=== PATIENT | male | born 1945 | race Caucasian/White ===

== ENCOUNTER 2017-06-23 10:12 | Inpatient (IN) | payer MEDICARE ==
[2017-06-23] MEDS ORDERED: ASPIRIN 325 MG TAB ONE (10:31)
[2017-06-23] MEDS ORDERED: SODIUM CHLORIDE 0.9% 1,000 ML IV ONE (10:50)
[2017-06-23 11:11] LABS: Basophils % (A) 0 %; Eosinophils # (A) 0.1 k/uL (0-0.7); Eosinophils % (A) 1 %; HCT 42.5 % (39.0-53.0); HGB 14.3 gm/dL (13.0-17.5); Lymphocytes % (A) 9 %; MCH 31.3 pg (25.0-35.0); MCHC 33.6 g/dL (31.0-37.0); MCV 93.4 fL (80.0-100.0); Mean Platelet Volume 8.2; Monocytes # (A) 0.6 k/uL (0-1.0); Monocytes % (A) 5 %; Neutrophils # (A) 9.3 k/uL (1.3-7.7); Neutrophils % (A) 83 %; Platelet Count 209 k/uL (150-450); RBC 4.55 m/uL (4.30-5.90); WBC 11.2 k/uL (3.8-10.6)
[2017-06-23 11:20] LABS: Anion Gap 9 mmol/L; Blood Urea Nitrogen 16 mg/dL (9-20); Calcium 9.4 mg/dL (8.4-10.2); Carbon Dioxide 29 mmol/L (22-30); Chloride 105 mmol/L (98-107); Glucose 105 mg/dL (74-99); Potassium 4.6 mmol/L (3.5-5.1); Sodium 143 mmol/L (137-145)
[2017-06-23] MEDS ORDERED: fentaNYL (PF) 50 MCG/ML 2 ML AMP IV ONE (12:09)
[2017-06-23] MEDS ORDERED: diphenhydrAMINE 50 MG/ML 1 ML VIAL IVP ONE (12:09)
[2017-06-23] MEDS ORDERED: LIDOCAINE 2% INJ 20 MG/ML SQ ONE (12:14)
[2017-06-23] MEDS ORDERED: VERAPAMIL SYRINGE (5 MG/10 ML) INTRAARTER ONE (12:15)
[2017-06-23] MEDS ORDERED: HEPARIN SODIUM 1,000 UN/ML (10ML VL) IV ONE (12:32)
[2017-06-23] MEDS ORDERED: MD COMMUNICATION TO PHARMACY 1 EACH MISC PO ONE ×4 (12:53)
[2017-06-23] MEDS ORDERED: RX INFO: IV CONTRAST WAS GIVEN 1 EACH MISC MISCELLANE PRN (12:56)
[2017-06-23] MEDS ORDERED: IOHEXOL 350 MG/ML 125ML BOTTLE INJ ONE (12:57)
[2017-06-23] MEDS ORDERED: SODIUM CHLORIDE 0.9% 1,000 ML IV SCH (13:00)
--- NOTE | 2017-06-23 13:24 | CONS ---
CONSULTATION Mr. Yang is a 72-year-old male who presented to undergo an outpatient stress test at the [facility]. He has had chest discomfort for the last 2 weeks. The discomfort occurred when he was exerting himself in the cold weather. Subsequent to that, he had recurrent symptoms when he is in the cold weather. He had no prior cardiac history. No history of dizziness. No palpitation. No syncope. No PND , orthopnea, or peripheral edema. He has no prior cardiac workup. His coronary risk factors are negative for hypertension, hyperlipidemia. He is nonsmoker, nondiabetic. He underwent a stress test at the [facility] and there were had chest discomfort and EKG changes as well as antral wall acute hypokinesis that resolved in recovery. REVIEW OF SYSTEMS: RESPIRATORY SYSTEM: He has mild dyspnea on exertion. No wheezing. No cough. GI System: No GI bleeding or rectal disease. SYSTEM: No dysuria, hematuria. NERVOUS SYSTEM: No stroke or seizure. MEDICATION: His medications at home include aspirin, Prilosec. PHYSICAL EXAMINATION: He is a 72-year-old male, alert, oriented, no apparent distress. Blood pressure 130/70 with a heart rate in the 70s. HEAD: Normocephalic. EYES: Sclerae anicteric. NECK: Good upstroke. No bruit. No jugular venous distention. LUNGS: Clear to auscultation. HEART: Regular rate and rhythm. S1, S2. No S3. No murmur or rub. ABDOMEN: Soft, nontender. Positive bowel sounds. No organomegaly. EXTREMITIES: No edema. IMPRESSION: New onset angina pectoris with severely abnormal stress echocardiogram with anterior apical hypokinesis and EKG changes. RECOMMENDATION: In view of finding anatomy recommend proceeding with cardiac catheterization. The procedures, risks and complications were discussed with the patient who is in full understanding and agreement. Thank you for this consult. We will follow with you. MMODL / IJN: [id number] / JUAN M
--- NOTE | 2017-06-23 13:36 | CC ---
CARDIAC CATHETERIZATION REPORT Mr. Yang is a 72-year-old male with no prior documented history of coronary disease, who presented with new onset angina pectoris and has significantly abnormal stress echocardiogram with antral wall hypokinesis. In view of that, recommendation degrade were made regarding cardiac catheterization. The procedures, risks and complication were discussed with the patient who is in full understanding and agreement. PROCEDURE: Patient was brought to the laboratory technician in fasting semi-sedated state after receiving fentanyl and Benadryl. After obtaining moderate conscious sedated state, he was draped and prepped in a conventional fashion. Using Xylocaine anesthesia and Seldinger technique, a 6-[place] sheath was introduced in the right radial artery. Selective right and left angiography were performed using 5-[place] 3-1/2 bend right and left Amrita catheter, multiple views of the coronary artery including hemiaxial views were obtained. Following that 5-[place] tight pigtail catheter in his left ventricle and a 30 degree JEAN-BAPTISTE view of the left ventricle was obtained. Following that, the catheter and sheath were removed. Hemostasis was obtained with deployment of a TR band. There was no immediate complication. Patient is returned to his room in stable condition. Of note, the patient received 5000 units of intravenous heparin as well as intra-arterial verapamil. FINDINGS: 1. LEFT MAIN: This is a short size vessel bifurcating left circumflex and left anterior descending artery. Left main coronary artery has no evidence of high-grade stenosis. 2. LEFT ANTERIOR DESCENDING ARTERY: This is a large-sized vessel reaching to the apex giving rise to a large diagonal branch. The left anterior descending artery, the ostium has a long lesion with area of stenosis up to 99% extending to the bifurcation. The vessel beyond that has no evidence of high-grade stenosis. 3. LEFT CIRCUMFLEX: This is a nondominant vessel, giving rise to a large obtuse marginal branch. The left circumflex as well as its branches have no evidence of obstructive disease. 4. RIGHT CORONARY ARTERY: This is a large dominant vessel bifurcating PDA and posterolateral segment branches. The right coronary artery as well as branches have no evidence of obstructive disease. LEFT VENTRICULOGRAM: Left ventriculogram was performed in 30 degree JEAN-BAPTISTE view and reveals normal size systolic function. Ejection fraction is 60%. There was no significant mitral regurgitation. HEMODYNAMICS: There was no gradient across the aortic valve. The left ventricle end-diastolic pressure was 12-14 mmHg. CONCLUSION: 1. Critical ostial LAD stenosis in a long segment. 2. Normal left ventricular size and systolic function. RECOMMENDATION: In view of the location of the lesion as well as the presentation, I recommend proceeding with coronary artery bypass grafting to the LAD. Those findings and recommendation were discussed with the patient and his family who are in full understanding and agreement. I have discussed with the patient the risk of restenoses as well impingement on the left circumflex ostium will be higher in view of the location of the lesion. He is in full understanding and agreement. DURATION OF THE PROCEDURE: 23 minutes. MMSAMMIEL / FADIN: [id number] /
--- NOTE | 2017-06-23 13:39 | LTR ---
June 23, [address] Hardwick: I had the pleasure of performing cardiac catheterization on Mr. Yang at [facility] on June 23, 2017 and a full copy of the procedure note will be forwarded to you. In brief, he was found to have ostial LAD lesion with a normal left ventricular size and systolic function. In view of his finding and his anatomy, I recommended proceeding with coronary artery bypass grafting. I will keep you updated on his progress. Thank you again for allowing me to participate in his care. Please feel free to call for any questions. Sincerely, DEEPIKAL / IJN: [id number] /
[2017-06-23] MEDS ORDERED: HEPARIN SOD,PORK IN 0.45% NACL 25,000 UNIT in 0.45% NACL 1 500ML.BAG IV SCH (15:00)
[2017-06-23] MEDS ORDERED: HEPARIN SODIUM,PORCINE 5,000 UNIT/ML 1 ML VIAL IV PRN (15:00)
--- NOTE | 2017-06-23 15:13 | P.CNPUL ---
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 Patient is a lifelong nonsmoker, has been complaining recently of substernal chest discomfort and radiation to his arms especially the left arm upon shoveling snow. Symptoms disappeared with rest. Hence the patient had a recent stress test on outpatient basis at [facility], and it was suggestive of ischemic changes. Hence the patient saw Dr. Rodriguez today, and he underwent cardiac catheterization. It showed critical ostial LAD stenosis and a long segment with normal LV function. Hence the patient was advised to undergo emergent coronary artery bypass grafting to the LAD. Considering plans for possible CABG, I was asked to see him on consultation for preoperative pulmonary clearance. Again the patient does not smoke, does not have any symptoms to suggest any underlying pulmonary disease. Denies any cough no wheezing no shortness of breath. Denies any headaches, no blurred vision, no dizziness. No nausea no vomiting no abdominal pain no melena no hematemesis no dysuria and no frequency no urgency. Patient is usually very active physically. Again he does not smoke, drinks a glass or 2 glasses of wine on a regular daily basis. Patient denies any specific occupational exposure. Chest x-ray done portable this morning is relatively normal. No evidence of active pulmonary disease. Review of Systems 14 point review of systems were obtained, please refer to pertinent positives as noted in HPI otherwise remaining systems are negative Past Medical History Additional Past Medical History / Comment(s): History of occasional GERD without esophagitis Medications and Allergies Home Medications Medication Instructions Recorded Confirmed Type Aspirin [Adult Low Dose Aspirin EC] 81 mg PO DAILY 06/23/17 06/23/17 History Omeprazole [PriLOSEC] 10 mg PO AC-BRKFST 06/23/17 06/23/17 History Allergies Allergy/AdvReac Type Severity Reaction Status Date / Time naproxen [From Aleve] Allergy Rash/Hives Verified 06/23/17 13:57 Physical Exam Vitals: Vital Signs Temp Pulse Resp BP BP Pulse Ox 06/23/17 14:29 97.2 F L 86 18 151/87 96 06/23/17 13:20 70 16 123/88 98 06/23/17 13:09 78 16 137/87 98 06/23/17 12:50 76 16 142/90 97 06/23/17 10:40 99.4 F 91 18 123/77 94 L Intake and Output 06/23/17 06/23/17 06/23/17 06:59 14:59 22:59 Intake Total 50 Balance 50 Intake: IV 50 Other: Weight 92.986 kg Physical Exam: Revealed a 72-year-old white male in no form of respiratory distress. Head: Atraumatic, normocephalic. HEENT:[Neck is supple.] [No neck masses.] [No thyromegaly.] [No JVD.] Chest: [Clear throughout, no crackles, no rhonchi, no wheezes.] Cardiac Exam: [Normal S1 and S2, no S3 gallop, no murmur.] Abdomen: [Soft, nontender, no megaly, no rebound, no guarding, normal bowel sounds.] Extremities: [No clubbing, no edema, no cyanosis.] Neurological Exam: [No focal neurologic deficit.] Psychiatric: Normal mood affect and mental status examination. Lymphatics: No lymphadenopathy. Skin: No rashes. No evidence of erythema. Musculoskeletal: Normal range of motion, no deformities noted. Results - Laboratory Findings CBC and BMP: 06/23/17 10:50 06/23/17 10:50 Abnormal lab findings: Abnormal Labs 06/23/17 06/23/17 10:50 10:50 WBC 11.2 H Neutrophils # 9.3 H Glucose 105 H - Diagnostic Findings Chest x-ray: image reviewed (No evidence of active pulmonary disease) Assessment and Plan Assessment: Impression: 1 new-onset angina with severely abnormal stress echocardiogram and abnormal cardiac catheterization showing a critical ostial LAD stenosis and a long segment with normal left ventricular size and systolic function. 2 history of GERD without esophagitis. Recommendation: Patient will be cleared for surgery as scheduled, based on his clinical history and clinical findings, no absolute contraindication to surgery. Patient will be given an incentive spirometer, no need for bronchodilators, will continue to follow. Time with Patient: Greater than 30
[2017-06-23 15:21] LABS: INR 1.1 (<1.2); Partial Thromboplastin Time 30.2 sec (22.0-30.0)
[2017-06-23 15:33] LABS: ALT 19 U/L (21-72); AST 15 U/L (17-59); Alkaline Phosphatase 80 U/L (38-126); Anion Gap 11 mmol/L; Blood Urea Nitrogen 14 mg/dL (9-20); Calcium 9.4 mg/dL (8.4-10.2); Carbon Dioxide 26 mmol/L (22-30); Chloride 104 mmol/L (98-107); Cholesterol 139 mg/dL (<200); Glucose 177 mg/dL (74-99); HDL Cholesterol 48 mg/dL (40-60); LDL Cholesterol,Calculated 74 mg/dL (0-99); Potassium 4.4 mmol/L (3.5-5.1); Sodium 141 mmol/L (137-145); Total Bilirubin 0.6 mg/dL (0.2-1.3); Total Protein 6.8 g/dL (6.3-8.2); Triglycerides 87 mg/dL (<150)
[2017-06-23 15:39] LABS: Basophils % (A) 0 %; Eosinophils % (A) 1 %; HCT 42.9 % (39.0-53.0); HGB 14.8 gm/dL (13.0-17.5); Lymphocytes # (A) 1.4 k/uL (1.0-4.8); Lymphocytes % (A) 15 %; MCH 32.1 pg (25.0-35.0); MCHC 34.6 g/dL (31.0-37.0); MCV 92.9 fL (80.0-100.0); Monocytes # (A) 0.4 k/uL (0-1.0); Monocytes % (A) 4 %; Neutrophils # (A) 7.5 k/uL (1.3-7.7); Neutrophils % (A) 79 %; Platelet Count 200 k/uL (150-450); RBC 4.62 m/uL (4.30-5.90); RDW 11.6 % (11.5-15.5); WBC 9.5 k/uL (3.8-10.6)
--- NOTE | 2017-06-23 16:02 | XR ---
EXAMINATION TYPE: XR chest 1V portable DATE OF EXAM: 06/23/2017 COMPARISON: NONE HISTORY: Preop TECHNIQUE: Single frontal view of the chest is obtained. FINDINGS: Hyperinflation noted. There is no pneumothorax. No overt congestion. No focal pneumonia. L inear changes in the right midlung suggestive of scar or atelectasis. IMPRESSION: Linear density right midlung most typical of scar or atelectasis.
--- NOTE | 2017-06-23 16:42 | P.HPIM ---
History of Present Illness H&P Date: 06/23/17 Chief Complaint: Chest pain, abnormal stress test and abnormal cardiac cath This is a 72-year-old gentleman patient of Dr. Brad Hardwick. Dr. Rodriguez. She has underlying history of GERD, with no significant past medical history, complained off chest discomfort a few days ago consisting off for chest pain during a snow shoveling 3 weeks ago, patient had chest tightness 2 days prior to admission for which he underwent a stress echocardiogram on June 23 2017 necessary. Necessitating as cardiac catheterization performed right radial artery on 06/23/2017. Stress test findings include mild anterior and apical hypokinesia at the peak of exercise consistent with LAD disease, progressing EF is about 55-60%, stress echo EF shows 40-45%, wall motion abnormality anteroseptal and mid anterior apex and anterolateral oakley performed an exercise of 5 minutes reaching a stage II at 2.5 miles per hour, 12 incline. Unable to find cardiac cath report , I be notified by Dr. maurice regarding the abnormal stress test requiring cardiothoracic surgeon evaluation, anticipating bypass surgery on 06/24/2017, Dr. Smith consulted for critical care pulmonary medicine. Patient denies any prior history of CAD, no hypertension, hyperlipidemia, denies diabetes mellitus type 2, no CVA, no CHF Review of Systems Constitutional: Reports as per HPI, Denies anorexia, Denies chills, Denies chronic headaches, Denies chronic pain, Denies daytime sleepiness, Denies fatigue, Denies fever, Denies lethargy, Denies malaise, Denies night sweats, Denies poor appetite, Denies sweats, Denies weakness, Denies weight gain, Denies weight loss Ears, nose, mouth and throat: Reports as per HPI, Denies ant. neck pain, Denies bleeding gums, Denies dental pain, Denies dysphagia, Denies epistaxis, Denies headache, Denies hoarseness, Denies mouth pain, Denies nasal congestion, Denies nasal discharge, Denies neck fullness/pressure, Denies neck lump, Denies nose pain, Denies odynophagia, Denies post-nasal drip, Denies sinus pain, Denies sinus pressure, Denies swelling in mouth, Denies swelling in throat, Denies sore throat, Denies vertigo, Denies voice changes Cardiovascular: Reports as per HPI, Reports chest pain, Reports dyspnea on exertion, Denies claudication, Denies decreased exercise tolerance, Denies edema , Denies high blood pressure, Denies irregular heart beat, Denies leg edema, Denies lightheadedness, Denies orthopnea, Denies palpitations, Denies paroxysmal nocturnal dyspnea, Denies phlebitis, Denies rapid heart beat, Denies shortness of breath, Denies syncope Respiratory: Reports as per HPI, Denies congestion, Denies cough, Denies cough with sputum, Denies dyspnea, Denies excessive sputum, Denies hemoptysis, Denies home oxygen, Denies pain, Denies pain on inspiration, Denies pleurisy, Denies respiratory infections, Denies sleep apnea, Denies snoring, Denies wheezing Gastrointestinal: Reports as per HPI Genitourinary: Reports as per HPI, Denies decreased libido, Denies difficulties fathering child, Denies discharge, Denies dysuria, Denies erectile dysfunction, Denies flank pain, Denies genital pain, Denies genital sores, Denies hematuria, Denies impotence, Denies incontinence, Denies kidney stones, Denies nocturia, Denies polyuria, Denies testicular lump, Denies testicular pain, Denies urinary frequency, Denies urinary hesitancy, Denies urinary retention Integumentary: Reports as per HPI, Denies acne, Denies boils, Denies brittle nails, Denies change in hair/nails, Denies color changes, Denies darkening of skin, Denies depigmentation, Denies dryness, Denies foot/leg ulcers, Denies growths, Denies hirsutism, Denies lesions, Denies onychomycosis, Denies pruritus , Denies rash, Denies sores, Denies striae, Denies unusual bruising, Denies wounds Neurological: Reports as per HPI, Denies aphasia, Denies ataxia, Denies balance difficulties, Denies burning pain, Denies change in mentation, Denies change in smell/taste, Denies change in speech, Denies confusion, Denies convulsions, Denies double vision, Denies gait dysfunction, Denies head injury, Denies headaches, Denies hearing difficulties, Denies lack of coordination, Denies loss of vision, Denies memory loss, Denies migraines, Denies motor disturbance, Denies numbness, Denies paralysis, Denies paresthesias, Denies seizures, Denies sensory deficit, Denies spasticity, Denies syncope, Denies tic, Denies tingling , Denies transient paralysis, Denies tremors, Denies vertigo, Denies weakness, Denies visual changes Psychiatric: Reports as per HPI, Denies anhedonia, Denies anxiety, Denies anxiety attacks, Denies change in appetite, Denies change in libido, Denies change in sleep habits, Denies confusion, Denies depression, Denies difficulty concentrating, Denies disorientation, Denies hallucinations, Denies hopelessness , Denies hypersomnia, Denies insomnia, Denies irritability, Denies memory loss, Denies mood swings, Denies paranoia, Denies sadness/tearfulness, Denies sleep disturbances, Denies suicidal ideation Endocrine: Reports as per HPI, Denies cold intolerance, Denies deepening of the voice, Denies excessive sweating, Denies excessive thirst, Denies fatigue, Denies flushing, Denies heat intolerance, Denies high blood sugars, Denies increase in ring/shoe/hat size, Denies low blood sugars, Denies nocturia, Denies palpitations, Denies polydipsia, Denies polyphagia, Denies polyuria, Denies proptosis, Denies recent glucocorticoid use, Denies thyroid mass, Denies weight change Hematologic/Lymphatic: Reports as per HPI, Denies easy bleeding, Denies easy bruising, Denies lymphadenopathy, Denies lymphedema, Denies thrombophilia Allergic/Immunologic: Reports as per HPI, Denies allergic rhinitis, Denies anaphylaxis, Denies angioedema, Denies gluten intolerance, Denies persistent infections, Denies seasonal allergies, Denies urticaria, Denies wheezing Past Medical History Past Medical History: Eye Disorder, GERD/Reflux Additional Past Medical History / Comment(s): History of occasional GERD without esophagitis, dry macular degeneration bean eyes, [place]. pos.stress test History of Any Multi-Drug Resistant Organisms: None Reported Additional Past Surgical History / Comment(s): 06/23/17-heart cath. other hx: colonoscopy. dental implant lower front. HAD 1ST OF 2 SHINGELLES VACCINE Past Anesthesia/Blood Transfusion Reactions: Motion Sickness Additional Past Anesthesia/Blood Transfusion Reaction / Comment(s): sea sickness Smoking Status: Never smoker Additional History: Mother secondary to abdominal aortic aneurysm, father secondary to lung cancer, one brother, with hypertension and atrial flutter , one sister at 62 secondary diabetes mellitus and CAD, no daughters no signs - Past Family History Father Family Medical History: Cancer Additional Family Medical History / Comment(s): lung cancer Mother Additional Family Medical History / Comment(s): AAA Brother(s) Family Medical History: Hypertension Additional Family Medical History / Comment(s): A FLUTTER Sister(s) Family Medical History: Coronary Artery Disease (CAD), Diabetes Mellitus Additional Family Medical History / Comment(s): AGE 62 Medications and Allergies Home Medications Medication Instructions Recorded Confirmed Type Aspirin [Adult Low Dose Aspirin EC] 81 mg PO DAILY 06/23/17 06/23/17 History Omeprazole [PriLOSEC] 10 mg PO AC-BRKFST 06/23/17 06/23/17 History Allergies Allergy/AdvReac Type Severity Reaction Status Date / Time naproxen [From Aleve] Allergy Rash/Hives Verified 06/23/17 13:57 Physical Exam Vitals: Vital Signs Temp Pulse Resp BP BP Pulse Ox 06/23/17 14:29 97.2 F L 86 18 151/87 96 06/23/17 13:20 70 16 123/88 98 06/23/17 13:09 78 16 137/87 98 06/23/17 12:50 76 16 142/90 97 06/23/17 10:40 99.4 F 91 18 123/77 94 L Intake and Output 06/23/17 06/23/17 06/23/17 06:59 14:59 22:59 Intake Total 50 Balance 50 Intake: IV 50 Other: Weight 92.986 kg - Constitutional General appearance: cooperative, no acute distress - EENT Eyes: EOMI, PERRLA, dentition normal, normal appearance - Neck Neck: no lymphadenopathy, normal ROM, no other, no rigidity, no stridor, no thyromegaly Carotids: bilateral: bruit absent Thyroid: bilateral: normal size, negative: enlarged, firm - Respiratory Respiratory: bilateral: CTA, negative: diminished, dullness, rhonchi, wheezing - Cardiovascular Rhythm: regular Heart sounds: normal: S1, S2 Abnormal Heart Sounds: no systolic murmur, no diastolic murmur, no rub, no S3 Gallop, no S4 Gallop, no click, no other - Gastrointestinal General gastrointestinal: no absent bowel sounds, no decreased bowel sounds, no distended, no hepatomegaly, no hyperactive bowel sounds, no normal bowel sounds , no organomegaly, no rigid, no scaphoid, soft, no splenomegaly, no tenderness, no umbilical hernia, no ventral hernia - Integumentary Integumentary: normal, normal turgor - Neurologic Neurologic: CNII-XII intact - Musculoskeletal Musculoskeletal: gait normal, strength equal bilaterally - Psychiatric Psychiatric: A&O x's 3, appropriate affect, intact judgment & insight Results CBC & Chem 7: 06/23/17 14:51 06/23/17 14:51 Labs: Abnormal Lab Results - Last 24 Hours (Table) 06/23/17 06/23/17 06/23/17 Range/Units 10:50 10:50 14:51 WBC 11.2 H (3.8-10.6) k/uL Neutrophils # 9.3 H (1.3-7.7) k/uL APTT 30.2 H (22.0-30.0) sec Glucose 105 H (74-99) mg/dL AST (17-59) U/L ALT (21-72) U/L 06/23/17 Range/Units 14:51 WBC (3.8-10.6) k/uL Neutrophils # (1.3-7.7) k/uL APTT (22.0-30.0) sec Glucose 177 H (74-99) mg/dL AST 15 L (17-59) U/L ALT 19 L (21-72) U/L Laboratory Results WBC 9.5 k/uL (3.8-10.6) 06/23/17 14:51 RBC 4.62 m/uL (4.30-5.90) 06/23/17 14:51 Hgb 14.8 gm/dL (13.0-17.5) 06/23/17 14:51 Hct 42.9 % (39.0-53.0) 06/23/17 14:51 MCV 92.9 fL (80.0-100.0) 06/23/17 14:51 MCH 32.1 pg (25.0-35.0) 06/23/17 14:51 MCHC 34.6 g/dL (31.0-37.0) 06/23/17 14:51 RDW 11.6 % (11.5-15.5) 06/23/17 14:51 Plt Count 200 k/uL (150-450) 06/23/17 14:51 Neutrophils % 79 % 06/23/17 14:51 Lymphocytes % 15 % 06/23/17 14:51 Monocytes % 4 % 06/23/17 14:51 Eosinophils % 1 % 06/23/17 14:51 Basophils % 0 % 06/23/17 14:51 Neutrophils # 7.5 k/uL (1.3-7.7) 06/23/17 14:51 Lymphocytes # 1.4 k/uL (1.0-4.8) 06/23/17 14:51 Monocytes # 0.4 k/uL (0-1.0) 06/23/17 14:51 Eosinophils # 0.0 k/uL (0-0.7) 06/23/17 14:51 Basophils # 0.0 k/uL (0-0.2) 06/23/17 14:51 PT 11.0 sec (9.0-12.0) 06/23/17 14:51 INR 1.1 (<1.2) 06/23/17 14:51 APTT 30.2 sec (22.0-30.0) H 06/23/17 14:51 Sodium 141 mmol/L (137-145) 06/23/17 14:51 Potassium 4.4 mmol/L (3.5-5.1) 06/23/17 14:51 Chloride 104 mmol/L (98-107) 06/23/17 14:51 Carbon Dioxide 26 mmol/L (22-30) 06/23/17 14:51 Anion Gap 11 mmol/L 06/23/17 14:51 BUN 14 mg/dL (9-20) 06/23/17 14:51 Creatinine 0.90 mg/dL (0.66-1.25) 06/23/17 14:51 Est GFR (CKD-EPI)AfAm >90 (>60 ml/min/1.73 sqM) 06/23/17 14:51 Est GFR (CKD-EPI)NonAf 86 (>60 ml/min/1.73 sqM) 06/23/17 14:51 Glucose 177 mg/dL (74-99) H 06/23/17 14:51 Calcium 9.4 mg/dL (8.4-10.2) 06/23/17 14:51 Magnesium 2.0 mg/dL (1.6-2.3) 06/23/17 14:51 Total Bilirubin 0.6 mg/dL (0.2-1.3) 06/23/17 14:51 AST 15 U/L (17-59) L 06/23/17 14:51 ALT 19 U/L (21-72) L 06/23/17 14:51 Alkaline Phosphatase 80 U/L (38-126) 06/23/17 14:51 NT-Pro-B Natriuret Pep 77 pg/mL 06/23/17 14:51 Total Protein 6.8 g/dL (6.3-8.2) 06/23/17 14:51 Albumin 4.0 g/dL (3.5-5.0) 06/23/17 14:51 Triglycerides 87 mg/dL (<150) 06/23/17 14:51 Cholesterol 139 mg/dL (<200) 06/23/17 14:51 LDL Cholesterol, Calc 74 mg/dL (0-99) 06/23/17 14:51 HDL Cholesterol 48 mg/dL (40-60) 06/23/17 14:51 TSH 1.690 mIU/L (0.465-4.680) 06/23/17 14:51 Thrombosis Risk Factor Assmnt - DVT/VTE Prophylaxis DVT/VTE Prophylaxis: Pharmacologic Prophylaxis ordered Assessment and Plan Plan: 1. Unstable angina presenting with critical ostial LAD disease, thru an abnormal stress echocardiogram and cardiac cath, involving anterior and apical vasculature, Patient is being prepared for coronary artery bypass surgery on , cardiothoracic surgeon is on consult, Dr. Cedillo is on consult for critical care medicine. Screenings have been done, to include hepatitis panel, and hemoglobin A1c, echocardiogram, carotid Dopplers patient would require an MAT inhibitor a Patient is on Imdur 30 mg daily, metoprolol 25 mg bid IV heparin and aspirin 81 mg daily 2. Impaired random blood sugars hemoglobin A1c will be obtained, and NovoLog coverage, patient will be placed in the basal bolus and a long-acting insulin, and the correctional scale 3. GERD, on maintenance PPI at home 4. Hyperlipidemia, LDL 74, patient was started on atorvastatin 80 mg daily 4. GI prophylaxis with Protonix 5. DVT prophylaxis Status full Expected length of stay 5 days
[2017-06-23 19:25] LABS: Hepatitis A Antibody IgM Non-Reactive (Non-Reactive); Hepatitis B Core IgM Non-Reactive (Non-Reactive)
--- NOTE | 2017-06-23 19:36 | P.GSCN ---
Addendum entered and electronically signed by Aneudy Huynh NP-C 06/24/17 07: 54: STS risk score calculated and was discussed with the patient and family by Dr Pacheco this am. Original Note: <Aneudy Huynh - Last Filed: 06/23/17 19:15> History of Present Illness Consult date: 06/23/17 Reason for Consult: Coronary artery disease, recommendations for myocardial revascularization surgery. Requesting physician: Artem Rodriguez History of present illness: This is a 72-year-old gentleman who is followed by Dr. Mike Hardwick on an outpatient basis. The patient has no history of major medical illnesses. He does have a family history of early onset coronary artery disease with his sister being diagnosed in her mid 50s with coronary artery disease. Recently, the patient has complaining of chest pain and radiating pain from his left and right arm. He reports that the cold weather exaggerates his symptoms and the symptoms usually appear present with activity and relieved with rest. He also reports that he has been having some symptoms of shortness of breath with the chest pain. He denies any complaints of nausea, vomiting, dizziness or diaphoresis. Due to the above-mentioned symptoms he was referred to Dr. Rodriguez from cardiology associates. Today on 06/23/2017 the patient underwent a stress test at [facility] which was suggestive of ischemic changes. Subsequently for further evaluation the patient underwent a a cardiac catheterization which demonstrated a critical ostial left anterior descending stenosis of 99%. Also during the cardiac catheterization a left ventriculogram was performed which demonstrated a normal size and systolic function with an ejection fraction of 60%. The cardiac catheterization films were reviewed with the patient and his and Dr. Jose Pacheco from cardiothoracic surgery was consulted for recommendations on myocardial revascularization surgery. Review of Systems A 14 point review of systems was completed and was negative except as mentioned in the HPI. Past Medical History Past Medical History: Eye Disorder, GERD/Reflux Additional Past Medical History / Comment(s): History of occasional GERD without esophagitis, dry macular degeneration bean eyes, [place]. pos.stress test History of Any Multi-Drug Resistant Organisms: None Reported Additional Past Surgical History / Comment(s): 06/23/17-heart cath. HX of: colonoscopy and EGD. dental implant lower front. HAD 1ST OF 2 SHINGELLES VACCINE 2-15-18 Past Anesthesia/Blood Transfusion Reactions: Motion Sickness Additional Past Anesthesia/Blood Transfusion Reaction / Comm: sea sickness Past Psychological History: No Psychological Hx Reported Smoking Status: Never smoker Past Alcohol Use History: Daily (Has a glass wine with each evening meal.) Past Drug Use History: None Reported - Past Family History Father Family Medical History: Cancer Additional Family Medical History / Comment(s): lung cancer at age 75. Mother Family Medical History: Coronary Artery Disease (CAD), Hypertension, Vascular Disorder Additional Family Medical History / Comment(s): Ruptured abdominal aortic aneurysm. Brother(s) Family Medical History: Hypertension Additional Family Medical History / Comment(s): A FLUTTER Sister(s) Family Medical History: Coronary Artery Disease (CAD) (Diagnosed with heart disease in her mid 50s), Diabetes Mellitus Additional Family Medical History / Comment(s): AGE 62 Medications and Allergies Home Medications Medication Instructions Recorded Confirmed Type Aspirin [Adult Low Dose Aspirin EC] 81 mg PO DAILY 06/23/17 06/23/17 History Omeprazole [PriLOSEC] 10 mg PO AC-BRKFST 06/23/17 06/23/17 History Allergies Allergy/AdvReac Type Severity Reaction Status Date / Time naproxen [From Aleve] Allergy Rash/Hives Verified 06/24/17 06:21 Surgical - Exam Vital Signs Temp Pulse Resp BP Pulse Ox 99.4 F 91 18 123/77 94 L 06/23/17 10:40 06/23/17 10:40 06/23/17 10:40 06/23/17 10:40 06/23/17 10:40 - General well developed, well nourished, no distress, no pain - Eyes PERRL, normal ocular movement - ENT normal pinna, normal nares, normal mucosa, no hearing loss, no congestion, dentures (Implants) - Neck No lymphadenopathy. Neck is supple. no masses, no bruits, trachea midline, no venous distension - Respiratory Lung sounds are essentially clear throughout, he has a few scattered crackles to his right lower lobe. Respirations are symmetrical and nonlabored. Oxygen saturation are 94% on room air. He is achieving 2750 mL on his incentive spirometry. - Cardiovascular Regular rhythm and rate. S1 and S2 present, negative for S3, gallop or murmur. Remote telemetry showing normal sinus rhythm heart rate 98. - Abdomen No organomegaly, no guarding or rigidity. Active bowel sounds all 4 abdominal quadrants. Abdomen: soft, non tender - Genitourinary Adequate urine output. Clear yellow urine. - Integumentary no rash, no growths, no abnormal pigmentation - Neurologic normal coordination, normal sensation - Musculoskeletal normal gait, normal posture - Psychiatric oriented to time, oriented to person, oriented to place, speech is normal, memory intact Results - Labs 06/23/17 14:51 06/23/17 14:51 Abnormal Lab Results - Last 24 Hours (Table) 06/23/17 06/23/17 06/23/17 Range/Units 10:50 10:50 14:51 WBC 11.2 H (3.8-10.6) k/uL Neutrophils # 9.3 H (1.3-7.7) k/uL APTT 30.2 H (22.0-30.0) sec Glucose 105 H (74-99) mg/dL AST (17-59) U/L ALT (21-72) U/L 06/23/17 Range/Units 14:51 WBC (3.8-10.6) k/uL Neutrophils # (1.3-7.7) k/uL APTT (22.0-30.0) sec Glucose 177 H (74-99) mg/dL AST 15 L (17-59) U/L ALT 19 L (21-72) U/L Diabetes panel 06/23/17 06/23/17 Range/Units 10:50 14:51 Sodium 143 141 (137-145) mmol/L Potassium 4.6 4.4 (3.5-5.1) mmol/L Chloride 105 104 (98-107) mmol/L Carbon Dioxide 29 26 (22-30) mmol/L BUN 16 14 (9-20) mg/dL Creatinine 0.97 0.90 (0.66-1.25) mg/dL Glucose 105 H 177 H (74-99) mg/dL Calcium 9.4 9.4 (8.4-10.2) mg/dL AST 15 L (17-59) U/L ALT 19 L (21-72) U/L Alkaline Phosphatase 80 (38-126) U/L Total Protein 6.8 (6.3-8.2) g/dL Albumin 4.0 (3.5-5.0) g/dL Triglycerides 87 (<150) mg/dL HDL Cholesterol 48 (40-60) mg/dL Thyroid panel 06/23/17 Range/Units 14:51 TSH 1.690 (0.465-4.680) mIU/L Calcium panel 06/23/17 06/23/17 Range/Units 10:50 14:51 Calcium 9.4 9.4 (8.4-10.2) mg/dL Albumin 4.0 (3.5-5.0) g/dL Pituitary panel 06/23/17 06/23/17 Range/Units 10:50 14:51 Sodium 143 141 (137-145) mmol/L Potassium 4.6 4.4 (3.5-5.1) mmol/L Chloride 105 104 (98-107) mmol/L Carbon Dioxide 29 26 (22-30) mmol/L BUN 16 14 (9-20) mg/dL Creatinine 0.97 0.90 (0.66-1.25) mg/dL Glucose 105 H 177 H (74-99) mg/dL Calcium 9.4 9.4 (8.4-10.2) mg/dL TSH 1.690 (0.465-4.680) mIU/L Adrenal panel 06/23/17 06/23/17 Range/Units 10:50 14:51 Sodium 143 141 (137-145) mmol/L Potassium 4.6 4.4 (3.5-5.1) mmol/L Chloride 105 104 (98-107) mmol/L Carbon Dioxide 29 26 (22-30) mmol/L BUN 16 14 (9-20) mg/dL Creatinine 0.97 0.90 (0.66-1.25) mg/dL Glucose 105 H 177 H (74-99) mg/dL Calcium 9.4 9.4 (8.4-10.2) mg/dL Total Bilirubin 0.6 (0.2-1.3) mg/dL AST 15 L (17-59) U/L ALT 19 L (21-72) U/L Alkaline Phosphatase 80 (38-126) U/L Total Protein 6.8 (6.3-8.2) g/dL Albumin 4.0 (3.5-5.0) g/dL - Imaging Chest x-ray: report reviewed, image reviewed Additional studies: 2-D echocardiogram results pending. Vein mapping results pending. Carotid duplex study results pending. Pulmonary function test results pending. Assessment and Plan (1) Unstable angina Current Visit: Yes Status: Acute Code(s): I20.0 - UNSTABLE ANGINA SNOMED Code(s): 8674901 (2) Coronary artery disease Current Visit: Yes Status: Acute Code(s): I25.10 - ATHSCL HEART DISEASE OF [place] CORONARY ARTERY W/O ANG PCTRS SNOMED Code(s): 19534558 (3) GERD (gastroesophageal reflux disease) Current Visit: Yes Status: Acute Code(s): K21.9 - GASTRO-ESOPHAGEAL REFLUX DISEASE WITHOUT ESOPHAGITIS SNOMED Code(s): 501273981 (4) Hyperlipidemia Current Visit: Yes Status: Acute Code(s): E78.5 - HYPERLIPIDEMIA, UNSPECIFIED SNOMED Code(s): 33703383 (5) Macular degeneration of both eyes Current Visit: Yes Status: Acute Code(s): H35.30 - UNSPECIFIED MACULAR DEGENERATION SNOMED Code(s): 303410461 Plan: The patient was seen and examined. His chart and diagnostics reviewed. The patient was seen and examined by Dr. Pacheco. He discussed the cardiac catheterization findings with the patient and his . It was recommended that the patient undergo myocardial revascularization surgery tomorrow 2017 the patient was agreeable and wants to proceed with surgery. Preoperative teaching initiated. Preoperative testing initiated. Risks and benefits of the surgery were discussed with the patient by Dr. Pacheco. 5 m walk test was completed with the patient time 1:5.46 seconds, time 2: 4.35 seconds, time 3: 4.33 seconds. The patient will be scheduled for myocardial revascularization surgery on 06/24/2017 with COUCH, endoscopic vein harvest, intraoperative transesophageal echocardiogram and epi-aortic scanning. Continue his aspirin, statin and beta devin. STS risk score will be calculated and discussed with the patient preoperatively. Thank you Dr. Rodriguez for this consult and we'll look for to working with you in the care of your patient. Time with Patient: Greater than 30 <Jose Pacheco - Last Filed: 06/24/17 13:42> Surgical - Exam Vital Signs Temp Pulse Resp BP Pulse Ox 99.4 F 91 18 123/77 94 L 06/23/17 10:40 06/23/17 10:40 06/23/17 10:40 06/23/17 10:40 06/23/17 10:40 Results - Labs 06/24/17 05:37 06/24/17 05:37 Abnormal Lab Results - Last 24 Hours (Table) 06/23/17 06/23/17 06/23/17 Range/Units 14:51 14:51 14:51 APTT 30.2 H (22.0-30.0) sec Glucose 177 H (74-99) mg/dL POC Glucose (mg/dL) (75-99) mg/dL AST 15 L (17-59) U/L ALT 19 L (21-72) U/L Crossmatch See Detail 06/23/17 06/24/17 06/24/17 Range/Units 22:25 05:37 05:37 APTT 32.0 H 34.9 H (22.0-30.0) sec Glucose 112 H (74-99) mg/dL POC Glucose (mg/dL) (75-99) mg/dL AST (17-59) U/L ALT (21-72) U/L Crossmatch 06/24/17 Range/Units 13:26 APTT (22.0-30.0) sec Glucose (74-99) mg/dL POC Glucose (mg/dL) 104 H (75-99) mg/dL AST (17-59) U/L ALT (21-72) U/L Crossmatch Diabetes panel 06/23/17 06/23/17 06/24/17 Range/Units 14:51 14:51 05:37 Sodium 141 142 (137-145) mmol/L Potassium 4.4 4.5 (3.5-5.1) mmol/L Chloride 104 106 (98-107) mmol/L Carbon Dioxide 26 26 (22-30) mmol/L BUN 14 13 (9-20) mg/dL Creatinine 0.90 0.95 (0.66-1.25) mg/dL Glucose 177 H 112 H (74-99) mg/dL Hemoglobin A1c 5.6 (4.0-6.0) % Calcium 9.4 9.3 (8.4-10.2) mg/dL AST 15 L (17-59) U/L ALT 19 L (21-72) U/L Alkaline Phosphatase 80 (38-126) U/L Total Protein 6.8 (6.3-8.2) g/dL Albumin 4.0 (3.5-5.0) g/dL Triglycerides 87 (<150) mg/dL HDL Cholesterol 48 (40-60) mg/dL Thyroid panel 06/23/17 Range/Units 14:51 TSH 1.690 (0.465-4.680) mIU/L Calcium panel 06/23/17 06/24/17 Range/Units 14:51 05:37 Calcium 9.4 9.3 (8.4-10.2) mg/dL Albumin 4.0 (3.5-5.0) g/dL Pituitary panel 06/23/17 06/24/17 Range/Units 14:51 05:37 Sodium 141 142 (137-145) mmol/L Potassium 4.4 4.5 (3.5-5.1) mmol/L Chloride 104 106 (98-107) mmol/L Carbon Dioxide 26 26 (22-30) mmol/L BUN 14 13 (9-20) mg/dL Creatinine 0.90 0.95 (0.66-1.25) mg/dL Glucose 177 H 112 H (74-99) mg/dL Calcium 9.4 9.3 (8.4-10.2) mg/dL TSH 1.690 (0.465-4.680) mIU/L Adrenal panel 06/23/17 06/24/17 Range/Units 14:51 05:37 Sodium 141 142 (137-145) mmol/L Potassium 4.4 4.5 (3.5-5.1) mmol/L Chloride 104 106 (98-107) mmol/L Carbon Dioxide 26 26 (22-30) mmol/L BUN 14 13 (9-20) mg/dL Creatinine 0.90 0.95 (0.66-1.25) mg/dL Glucose 177 H 112 H (74-99) mg/dL Calcium 9.4 9.3 (8.4-10.2) mg/dL Total Bilirubin 0.6 (0.2-1.3) mg/dL AST 15 L (17-59) U/L ALT 19 L (21-72) U/L Alkaline Phosphatase 80 (38-126) U/L Total Protein 6.8 (6.3-8.2) g/dL Albumin 4.0 (3.5-5.0) g/dL Assessment and Plan Plan: The patient was seen and examined. The history and physical findings were verified. I agree with the above assessment and plan. The patient is a 72-year -old male, otherwise healthy, who does report exertional angina. Heart catheterization revealed a high-grade long segment stenosis in the proximal left anterior descending artery. This lesion is not amenable to PCI. Coronary artery bypass was recommended. The risks, benefits, and alternatives to this procedure were discussed with the patient and his . All their questions were answered. We will plan on performing the procedure on 06/24/2017.
--- NOTE | 2017-06-23 21:00 | US ---
EXAMINATION TYPE: US carotid duplex BILAT DATE OF EXAM: 06/23/2017 COMPARISON: NONE CLINICAL HISTORY: Preoperative cardiac surgery. Cardiac surgery in th am. EXAM MEASUREMENTS: RIGHT: Peak Systolic Velocity (PSV) cm/sec ----- Right CCA: 65.8 ----- Right ICA: 49.4 ----- Right ECA: 61.4 ICA/CCA ratio: 0.7 RIGHT: End Diastole cm/sec ----- Right CCA: 16.4 ----- Right ICA: 19.7 ----- Right ECA: 14.2 LEFT: Peak Systolic Velocity (PSV) cm/sec ----- Left CCA: 67.3 ----- Left ICA: 73.9 ----- Left ECA: 70.0 ICA/CCA ratio: 1.1 LEFT: End Diastole cm/sec ----- Left CCA: 18.4 ----- Left ICA: 27.6 ----- Left ECA: 11.8 VERTEBRALS (direction of flow): Right Vertebral: Antegrade Left Vertebral: Antegrade Rhythm: Normal Bilateral vessels dive deep. No significant stenosis seen IMPRESSION: There is antegrade flow in the vertebral arteries. The images and measurements suggest l ess than 20% stenosis in both internal carotid arteries. Criteria for Assigning % of Stenosis / Diameter reduction (Estimation based on the indirect measurements of the internal carotid artery velocities (ICA PSV). 1. Normal (no stenosis)=ICA PSV < 125 cm/s: ratio < 2.0: ICA EDV<40 cm/s. 2. Less than 50% stenosis=ICA PSV < 125 cm/s: ratio < 2.0: ICA EDV<40 cm/s. 3. 50 to 69% stenosis=ICA PSV of 125 to 230 cm/s: ration 2.0 ? 4.0: ICA EDV 40-100 cm/s. 4. Greater than 70% stenosis to near occlusion= ICA PSV > 230 cm/s: ratio > 4.0: ICA EDV > 100 cm/s. 5. Near occlusion= ICA PSV velocities may be low or undetectable: variable ratio and ICA EDV. 6. Total occlusion=unable to detect flow.
[2017-06-23] MEDS: ISOSORBIDE MONONITRATE ER 30 MG TAB.ER.24H PO SCH (21:18)
[2017-06-23] MEDS: INSULIN ASPART 100 UNIT/ML 1 ML 10 ML VIAL SQ SCH (21:18)
[2017-06-23] MEDS: METOPROLOL TARTRATE 25 MG TAB PO SCH (21:21)
[2017-06-23] MEDS: MUPIROCIN 2% OINT 22 GM TUBE NASAL SCH (21:21)
[2017-06-23] MEDS ORDERED: HEPARIN SODIUM 1,000 UN/ML (10ML VL) MISCELLANE ONE (23:02)
[2017-06-24] MEDS ORDERED: NITROGLYCERIN-D5W PMX 25 MG/250 ML BTL IV ONE (05:00)
[2017-06-24] MEDS ORDERED: DEXTROSE 5% IN WATER 1,000 ML with POTASSIUM CHLORIDE 110 MEQ, MAGNESIUM SULFATE 16 MEQ... IV SCH ×5 (05:00)
[2017-06-24] MEDS ORDERED: ATORVASTATIN 10 MG TAB PO ONE (05:00)
[2017-06-24] MEDS ORDERED: ASPIRIN 325 MG TAB PO ONE (05:00)
[2017-06-24] MEDS ORDERED: CHLORHEXIDINE GLUCONATE 15 ML CUP MUCOUS MEM ONE (05:00)
[2017-06-24] MEDS ORDERED: INSULIN REGULAR 100 UNIT in SODIUM CHLORIDE 0.9% 100 ML IV ONE (05:00)
[2017-06-24] MEDS ORDERED: ceFAZolin 2,000 MG in SODIUM CHLORIDE 0.9% 30 ML IVPB ONE (05:00)
[2017-06-24] MEDS ORDERED: MANNITOL 25% 12.5 GM/50 ML VIAL IV ONE ×2 (05:00)
[2017-06-24] MEDS ORDERED: CLEVIDIPINE BUTYRATE 25 MG in EMPTY BAG 1 BAG IV ONE (05:00)
[2017-06-24] MEDS ORDERED: ALBUMIN HUMAN 5% 500 ML in EMPTY BAG 1 BAG IVPB ONE ×6 (05:00)
[2017-06-24] MEDS ORDERED: PROTAMINE SULFATE 250 MG in EMPTY BAG 1 BAG IV ONE (05:00)
[2017-06-24] MEDS ORDERED: PROPOFOL 1,000 MG in EMPTY BAG 1 BAG IV ONE (05:00)
[2017-06-24] MEDS ORDERED: CALCIUM CHLORIDE 100 MG/ML 10 ML SYRINGE IVP ONE (05:00)
[2017-06-24] MEDS ORDERED: ceFAZolin 1,000 MG in SODIUM CHLORIDE 0.9% IRRIGATIO 1,000 ML IRRIGATION ONE (05:00)
[2017-06-24] MEDS ORDERED: METOPROLOL TARTRATE 12.5 MG TAB PO ONE (05:00)
[2017-06-24] MEDS ORDERED: HEPARIN SODIUM 1,000 UN/ML (10ML VL) IV ONE (05:00)
[2017-06-24] MEDS ORDERED: ceFAZolin 2 GM in SODIUM CHLORIDE 0.9% 30 ML IVPB ONE (05:00)
[2017-06-24] MEDS ORDERED: PHENYLEPHRINE-0.9% NACL SYG 1 MG/10 ML SYRINGE IV ONE ×4 (05:00)
[2017-06-24] MEDS ORDERED: PHENYLEPHRINE 40 MG in SODIUM CHLORIDE 0.9% 250 ML IV ONE (05:00)
[2017-06-24] MEDS ORDERED: TRANEXAMIC ACID 2,000 MG in SODIUM CHLORIDE 0.9% 180 ML IV ONE (05:00)
[2017-06-24] MEDS ORDERED: HEPARIN SODIUM,PORCINE 5,000 UNIT in SODIUM CHLORIDE 0.9% 500 ML IV ONE (05:00)
[2017-06-24] MEDS ORDERED: PAPAVERINE 360 MG in SODIUM CHLORIDE 0.9% 90 ML IV ONE (05:00)
[2017-06-24] MEDS ORDERED: ALBUMIN HUMAN 25% 50 ML in EMPTY BAG 1 BAG IVPB ONE (05:00)
[2017-06-24] MEDS ORDERED: PROTAMINE SULFATE 10 MG/ML 25 ML VIAL IV ONE ×2 (05:00→07:58)
[2017-06-24] MEDS ORDERED: NOREPINEPHRIN 4 MG-0.9% NS PMX 4 MG/250 ML ML IV SCH (05:00)
[2017-06-24] MEDS ORDERED: MAGNESIUM SULFATE SYG 4.06 MEQ/ML SYRINGE IV ONE (05:00)
[2017-06-24] MEDS ORDERED: NITROGLYCERIN-D5W PMX 50 MG in DEXTROSE/WATER 1 250ML.BAG IV ONE (05:00)
[2017-06-24 05:54] LABS: Basophils % (A) 1 %; Eosinophils # (A) 0.1 k/uL (0-0.7); Eosinophils % (A) 1 %; HCT 41.2 % (39.0-53.0); HGB 14.6 gm/dL (13.0-17.5); Lymphocytes # (A) 1.4 k/uL (1.0-4.8); Lymphocytes % (A) 18 %; MCH 32.6 pg (25.0-35.0); MCHC 35.4 g/dL (31.0-37.0); MCV 92.1 fL (80.0-100.0); Mean Platelet Volume 7.7; Monocytes # (A) 0.5 k/uL (0-1.0); Monocytes % (A) 6 %; Neutrophils # (A) 5.8 k/uL (1.3-7.7); Neutrophils % (A) 72 %; Platelet Count 224 k/uL (150-450); RBC 4.47 m/uL (4.30-5.90); RDW 11.7 % (11.5-15.5); WBC 8.1 k/uL (3.8-10.6)
[2017-06-24] MEDS ORDERED: SODIUM BICARB 8.4% 50 ML SYR (1 MEQ/ML) IV ONE (06:00)
[2017-06-24] MEDS ORDERED: DEXTROSE 5% IN WATER 1,000 ML with POTASSIUM CHLORIDE 25 MEQ, SODIUM CHLORIDE 4MEQ/ML V... IV SCH ×6 (06:00)
[2017-06-24 06:04] LABS: Hemoglobin A1C 5.6 % (4.0-6.0)
[2017-06-24 06:10] LABS: Anion Gap 10 mmol/L; Blood Urea Nitrogen 13 mg/dL (9-20); Calcium 9.3 mg/dL (8.4-10.2); Carbon Dioxide 26 mmol/L (22-30); Chloride 106 mmol/L (98-107); Glucose 112 mg/dL (74-99); Potassium 4.5 mmol/L (3.5-5.1); Sodium 142 mmol/L (137-145)
[2017-06-24] MEDS ORDERED: IV FLUID CONTINUATION 200 ML IV ONE (06:10)
[2017-06-24] MEDS ORDERED: SODIUM CHLORIDE 0.9% 250 ML BAG ONE (07:58)
[2017-06-24] MEDS ORDERED: MIDAZOLAM 2 MG/2 ML VIAL ONE (07:58)
[2017-06-24] MEDS ORDERED: MAGNESIUM SULFATE 4 MEQ/ML 2 ML VIAL ONE (07:58)
[2017-06-24] MEDS ORDERED: fentaNYL (PF) 50 MCG/ML 50 ML VIAL ONE (07:58)
[2017-06-24] MEDS ORDERED: TRANEXAMIC ACID 1,000 MG/10 ML VIAL ONE (07:58)
[2017-06-24] MEDS ORDERED: ALBUMIN HUMAN 5% 500 ML VIAL IVPB ONE (07:58)
[2017-06-24] MEDS ORDERED: HEPARIN SODIUM,PORCINE 10,000 UNIT/ML 1 ML VIAL ONE (07:58)
[2017-06-24] MEDS ORDERED: LIDOCAINE 2% SYG (PF) 100 MG/5 ML ONE (07:58)
[2017-06-24] MEDS ORDERED: VECURONIUM 10 MG VIAL IV ONE (07:58)
[2017-06-24] MEDS ORDERED: PROPOFOL 10 MG/ML 20 ML VIAL IV ONE (07:58)
[2017-06-24] MEDS ORDERED: fentaNYL (PF) 50 MCG/ML 2 ML AMP ONE (07:58)
[2017-06-24] MEDS ORDERED: SUCCINYLCHOLINE CHLORIDE VIAL 200 MG/10 ML VIAL IV ONE (07:58)
[2017-06-24 08:38] LABS: ABG Base Excess 0.4 mmol/L; ABG HCO3 25 mmol/L (21-25); ABG PCO2 38 mmHg (35-45); ABG PH 7.42 (7.35-7.45); ABG PO2 304 mmHg (83-108); ABG Potassium Whole Blood 4.7 mmol/L (3.4-4.5); ABG Sodium Whole Blood 139 mmol/L (135-146); ABG TCO2 26 mmol/L (19-24)
[2017-06-24] MEDS ORDERED: ATORVASTATIN 80 MG TAB PO SCH (09:00)
[2017-06-24] MEDS ORDERED: ASPIRIN 81 MG PO SCH (09:00)
[2017-06-24 10:48] LABS: ABG Base Excess -1.9 mmol/L; ABG HCO3 24 mmol/L (21-25); ABG Oxygen Saturation 99.8 % (94-97); ABG PCO2 44 mmHg (35-45); ABG PH 7.34 (7.35-7.45); ABG PO2 227 mmHg (83-108); ABG Potassium Whole Blood 5.1 mmol/L (3.4-4.5); ABG Sodium Whole Blood 133 mmol/L (135-146); ABG TCO2 25 mmol/L (19-24)
[2017-06-24 11:15] LABS: ABG Base Excess -1.7 mmol/L; ABG HCO3 23 mmol/L (21-25); ABG PCO2 38 mmHg (35-45); ABG PH 7.39 (7.35-7.45); ABG PO2 318 mmHg (83-108); ABG Potassium Whole Blood 5.2 mmol/L (3.4-4.5); ABG Sodium Whole Blood 134 mmol/L (135-146); ABG TCO2 24 mmol/L (19-24)
[2017-06-24] MEDS ORDERED: ALBUMIN HUMAN 5% 250 ML IVPB ONE (12:08)
[2017-06-24 12:19] LABS: ABG Base Excess -0.2 mmol/L; ABG HCO3 24 mmol/L (21-25); ABG Oxygen Saturation 99.4 % (94-97); ABG PCO2 39 mmHg (35-45); ABG PH 7.41 (7.35-7.45); ABG PO2 145 mmHg (83-108); ABG Potassium Whole Blood 4.4 mmol/L (3.4-4.5); ABG Sodium Whole Blood 138 mmol/L (135-146); ABG TCO2 26 mmol/L (19-24)
[2017-06-24] MEDS ORDERED: CALCIUM GLUCONATE 2,000 MG in SODIUM CHLORIDE 0.9% 100 ML IVPB PRN (12:53)
[2017-06-24] MEDS ORDERED: Phosphorus Replacement Protoco 1 EACH MISC MISCELLANE PRN (12:53)
[2017-06-24] MEDS ORDERED: ALBUMIN HUMAN 5% 250 ML in EMPTY BAG 1 BAG IVPB PRN (12:53)
[2017-06-24] MEDS ORDERED: Magnesium Replacement Protocol 1 EACH MISC MISCELLANE PRN (12:53)
[2017-06-24] MEDS ORDERED: Potassium Replacement Protocol 1 EACH MISC MISCELLANE PRN (12:53)
[2017-06-24] MEDS ORDERED: NITROGLYCERIN-D5W PMX 50 MG in DEXTROSE/WATER 1 250ML.BAG IV SCH (12:53)
[2017-06-24] MEDS ORDERED: ONDANSETRON 4 MG/2 ML VIAL IVP PRN (12:53)
[2017-06-24] MEDS ORDERED: METOCLOPRAMIDE 5 MG/ML 2 ML VIAL IVP PRN (12:53)
[2017-06-24] MEDS ORDERED: INSULIN REGULAR 100 UNIT in SODIUM CHLORIDE 0.9% 100 ML IV SCH (13:15)
[2017-06-24 13:29] LABS: Glucose,Whole Blood 104 mg/dL (75-99)
[2017-06-24] MEDS: MORPHINE SULFATE 4 MG/ML SYRINGE IVP PRN ×4 (13:35→21:04)
[2017-06-24] MEDS: CLEVIDIPINE BUTYRATE 25 MG in EMPTY BAG 1 BAG IV SCH ×7 (13:36→22:38)
[2017-06-24] MEDS: LACTATED RINGERS 1,000 ML IV SCH (13:40)
[2017-06-24] MEDS: PROPOFOL 1,000 MG in EMPTY BAG 1 BAG IV SCH ×2 (13:41→16:12)
[2017-06-24 14:00] LABS: ABG Base Excess -0.4 mmol/L; ABG HCO3 25 mmol/L (21-25); ABG Oxygen Saturation 96.7 % (94-97); ABG PCO2 45 mmHg (35-45); ABG PH 7.36 (7.35-7.45); ABG PO2 83 mmHg (83-108); ABG TCO2 27 mmol/L (19-24)
[2017-06-24 14:01] LABS: Glucose,Whole Blood 86 mg/dL (75-99)
[2017-06-24] MEDS ORDERED: hydrALAZINE HCL 20 MG/ML 1 ML VIAL IVP STA (14:26)
[2017-06-24] MEDS ORDERED: hydrALAZINE HCL 20 MG/ML 1 ML VIAL ONE (14:26)
--- NOTE | 2017-06-24 14:39 | XR ---
EXAMINATION TYPE: XR chest 1V portable DATE OF EXAM: 06/24/2017 COMPARISON: 06/25/2017 HISTORY: post op CABG TECHNIQUE: Single frontal view of the chest is obtained. FINDINGS: There is increased consolidation within the right upper lobe which is new postoperatively. ET tube approximately 4.5 cm above guillaume. NG tube is low in position at the GE junction mediastinal drain and left-sided chest tube noted. Bilateral areas of lower lobe consolidation and pleural effusi on seen. Postsurgical changes are seen. IMPRESSION: 1. There is interval large area of consolidation the right upper lobe could be postprocedural, hemorr fortino or related to atelectasis or mucous plug. Aspiration of the differential.. Report called to conchita ent's nurse. 2. Bilateral lower lobe subsegmental consolidation and small effusion.
--- NOTE | 2017-06-24 14:58 | P.PN ---
Subjective Progress Note Date: 06/24/17 Principal diagnosis: Coronary artery disease status post coronary artery bypass grafting utilizing a COUCH to the mid LAD, saphenous vein graft to the diagonal. Postoperative day # 0. 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 Patient is a lifelong nonsmoker, has been complaining recently of substernal chest discomfort and radiation to his arms especially the left arm upon shoveling snow. Symptoms disappeared with rest. Hence the patient had a recent stress test on outpatient basis at [facility], and it was suggestive of ischemic changes. Hence the patient saw Dr. Rodriguez today, and he underwent cardiac catheterization. It showed critical ostial LAD stenosis and a long segment with normal LV function. Hence the patient was advised to undergo emergent coronary artery bypass grafting to the LAD. Considering plans for possible CABG, I was asked to see him on consultation for preoperative pulmonary clearance. Again the patient does not smoke, does not have any symptoms to suggest any underlying pulmonary disease. Denies any cough no wheezing no shortness of breath. Denies any headaches, no blurred vision, no dizziness. No nausea no vomiting no abdominal pain no melena no hematemesis no dysuria and no frequency no urgency. Patient is usually very active physically. Again he does not smoke, drinks a glass or 2 glasses of wine on a regular daily basis. Patient denies any specific occupational exposure. Chest x-ray done portable this morning is relatively normal. No evidence of active pulmonary disease. The patient is seen again today 06/24/2017 immediately postoperative in the intensive care unit. The patient had undergone a COUCH to the mid LAD and a saphenous vein graft to the diagonal branch. He is returned on the mechanical ventilator at SIMV mode at a rate of 12, tidal volume 600, FiO2 100% and a PEEP of 5. Arterial blood gases reveal a pO2 of 83, pCO2 45, pH 7.36. He is sedated on propofol currently at 50 mcg/kg/m., Clevidipine at 20 mg per hour, nitroglycerin at 5 mcg/m, lactated Ringer's at 50 MLS per hour. Cardiac output 7.9, cardiac index 3.6, current blood pressure 140/50, PA pressure 39/20 with a mean of 29, CVP 13. Chest x-ray reveals evidence of a right upper lobe collapse. Split mediastinal and left pleural chest tubes are in place and endotracheal tube in good position. Bronchoscopy will be performed. Bronchodilators every 4 hours. Cefazolin every 8 hours. Objective - Vital Signs Vital signs: Vital Signs Temp 98.5 F 06/24/17 06:41 Pulse 82 06/24/17 13:45 Resp 12 06/24/17 13:45 BP 119/75 06/24/17 06:41 Pulse Ox 94 L 06/24/17 06:41 Intake & Output 06/23/17 06/24/17 06/24/17 18:59 06:59 18:59 Intake Total 390 662.333 36.292 Output Total 2075 Balance 390 662.333 -2038.708 Weight 92.986 kg 97.3 kg Intake: IV 150 50 33 Intake, IV Titration 132.333 3.292 Amount Clevidipine Butyrate 25 2.467 mg In Empty Bag 1 bag @ 1 MG/HR 2 mls/hr IV .Q24H AZUL Rx#:[id number] Heparin Sod,Pork in 0.45% 132.333 NaCl 25,000 unit In 0.45 % NaCl 1 500ml.bag @ 10. 755 UNITS/KG/HR 20 mls/hr IV .Q24H AZUL Rx#: [id number] Nitroglycerin-D5w Pmx 50 0.825 mg In Dextrose/Water 1 250ml.bag @ 5 MCG/MIN 1.5 mls/hr IV .Q24H AZUL Rx#: [id number] Oral 240 480 Output: Urine 875 Estimated Blood Loss 1200 ABP, PAP, CO, CI - Last Documented Arterial Blood Pressure 137/74 Pulmonary Artery Pressure 47/22 Cardiac Output 7.2 Cardiac Index 3.3 - Exam GENERAL EXAM: Sedated, intubated on the mechanical ventilator. HEAD: Normocephalic. EYES: Sluggish reaction of pupils, equal size. NOSE: Clear with pink turbinates. THROAT: Oral endotracheal tube and gastric tube secured in place. NECK: Right Leander-Wale catheter in place. No masses, no JVD. CHEST: Sternal dressing dry and intact. Split mediastinal and left pleural chest tubes in place.. LUNGS: Equal air entry with crackles in the right upper lobe. CVS: S1 and S2 normal with no audible murmur, regular rhythm. ABDOMEN: No hepatosplenomegaly, hypoactive bowel sounds, no guarding or rigidity. SPINE: No scoliosis or deformity SKIN: No rashes CENTRAL NERVOUS SYSTEM: Tone is normal in all 4 extremities. EXTREMITIES: There is trace peripheral edema. No clubbing, no cyanosis. Peripheral pulses are intact. Compression devices in place. - Labs CBC & Chem 7: 06/24/17 05:37 06/24/17 05:37 Labs: Abnormal Lab Results - Last 24 Hours (Table) 06/23/17 06/23/17 06/23/17 Range/Units 14:51 14:51 14:51 APTT 30.2 H (22.0-30.0) sec ABG pH (7.35-7.45) ABG pO2 (83-108) mmHg ABG Total CO2 (19-24) mmol/L ABG O2 Saturation (94-97) % ABG Hematocrit (34.0-46.0) % ABG Sodium (135-146) mmol/L ABG Potassium (3.4-4.5) mmol/L ABG Ionized Calcium (4.5-5.3) mg/dL ABG Glucose (75-99) mg/dL Hemoglobin (13.0-17.5) gm/dL Glucose 177 H (74-99) mg/dL POC Glucose (mg/dL) (75-99) mg/dL AST 15 L (17-59) U/L ALT 19 L (21-72) U/L Arterial Blood Potassium (3.4-4.5) mmol/L Arterial Blood Glucose (75-99) mg/dL Crossmatch See Detail 06/23/17 06/24/17 06/24/17 Range/Units 22:25 05:37 05:37 APTT 32.0 H 34.9 H (22.0-30.0) sec ABG pH (7.35-7.45) ABG pO2 (83-108) mmHg ABG Total CO2 (19-24) mmol/L ABG O2 Saturation (94-97) % ABG Hematocrit (34.0-46.0) % ABG Sodium (135-146) mmol/L ABG Potassium (3.4-4.5) mmol/L ABG Ionized Calcium (4.5-5.3) mg/dL ABG Glucose (75-99) mg/dL Hemoglobin (13.0-17.5) gm/dL Glucose 112 H (74-99) mg/dL POC Glucose (mg/dL) (75-99) mg/dL AST (17-59) U/L ALT (21-72) U/L Arterial Blood Potassium (3.4-4.5) mmol/L Arterial Blood Glucose (75-99) mg/dL Crossmatch 06/24/17 06/24/17 06/24/17 Range/Units 08:37 10:47 11:14 APTT (22.0-30.0) sec ABG pH 7.34 L (7.35-7.45) ABG pO2 304 H 227 H 318 H (83-108) mmHg ABG Total CO2 26 H 25 H (19-24) mmol/L ABG O2 Saturation 100.0 H 99.8 H 100.0 H (94-97) % ABG Hematocrit 30 L 29 L (34.0-46.0) % ABG Sodium 133 L 134 L (135-146) mmol/L ABG Potassium 4.7 H 5.1 H 5.2 H (3.4-4.5) mmol/L ABG Ionized Calcium 4.3 L 4.3 L (4.5-5.3) mg/dL ABG Glucose 112 H 173 H 170 H (75-99) mg/dL Hemoglobin 9.9 L 9.4 L (13.0-17.5) gm/dL Glucose (74-99) mg/dL POC Glucose (mg/dL) (75-99) mg/dL AST (17-59) U/L ALT (21-72) U/L Arterial Blood Potassium 4.7 H 5.1 H 5.2 H (3.4-4.5) mmol/L Arterial Blood Glucose 112 H 173 H 170 H (75-99) mg/dL Crossmatch 06/24/17 06/24/17 06/24/17 Range/Units 12:18 13:26 13:58 APTT (22.0-30.0) sec ABG pH (7.35-7.45) ABG pO2 145 H (83-108) mmHg ABG Total CO2 26 H 27 H (19-24) mmol/L ABG O2 Saturation 99.4 H (94-97) % ABG Hematocrit 32 L (34.0-46.0) % ABG Sodium (135-146) mmol/L ABG Potassium (3.4-4.5) mmol/L ABG Ionized Calcium 4.3 L (4.5-5.3) mg/dL ABG Glucose 140 H (75-99) mg/dL Hemoglobin 10.6 L (13.0-17.5) gm/dL Glucose (74-99) mg/dL POC Glucose (mg/dL) 104 H (75-99) mg/dL AST (17-59) U/L ALT (21-72) U/L Arterial Blood Potassium (3.4-4.5) mmol/L Arterial Blood Glucose 140 H (75-99) mg/dL Crossmatch Assessment and Plan Assessment: Impression: #1 Coronary artery disease with a critical ostial LAD stenosis and a long segment. Preserved left ventricular systolic function. Status post coronary artery bypass grafting utilizing a COUCH to the LAD, saphenous vein graft to the vitamin branch. Postoperative day #0. #2 Postoperative right upper lobe collapse secondary to suspected mucous plug. Bronchoscopy to be performed. #3 Hyperlipidemia. #4 Gastroesophageal reflux disease. #5 Macular degeneration bilaterally. #6 Hypertension area Plan: The patient was seen and evaluated by Dr. Cedillo. Chest x-ray, ABGs and labs were all reviewed. He will go ahead and perform bronchoscopy to evaluate the right upper lobe collapse. Current vent settings B assist-control at a rate of 12, tidal time 600, titrate the FiO2 currently at 100%, PEEP of 8. We'll repeat a chest x-ray and ABGs post procedure. Hopefully continue with the rapid extubation protocol. We'll continue with his current medications and make adjustments as needed. Continue to monitor him closely here in the intensive care unit. We'll continue to follow and make further recommendations based on his clinical status. Critical care time not including procedures 38 minutes. I, the cosigning physician, performed a history & physical examination of the patient. Lungs sounds have few scattered rhonchi more so on the right upper lobe. Maintaining good O2 saturations in the 90s on 100% FiO2. I discussed the assessment and plan of care with my nurse practitioner, Suad Lopez. I attest to the above note as dictated by her. Time with Patient: Greater than 30
[2017-06-24 15:02] LABS: Basophils % (A) 0 %; Eosinophils # (A) 0.1 k/uL (0-0.7); Eosinophils % (A) 1 %; HCT 27.5 % (39.0-53.0); Lymphocytes # (A) 0.7 k/uL (1.0-4.8); Lymphocytes % (A) 9 %; MCH 31.5 pg (25.0-35.0); MCHC 33.5 g/dL (31.0-37.0); MCV 93.9 fL (80.0-100.0); Mean Platelet Volume 8.6; Monocytes # (A) 0.4 k/uL (0-1.0); Monocytes % (A) 5 %; Neutrophils # (A) 6.4 k/uL (1.3-7.7); Neutrophils % (A) 84 %; RBC 2.93 m/uL (4.30-5.90); WBC 7.6 k/uL (3.8-10.6)
[2017-06-24 15:10] LABS: Ionized Calcium 4.6 mg/dL (4.5-5.3)
[2017-06-24 15:12] LABS: HGB 9.2 gm/dL (13.0-17.5); Platelet Count 107 k/uL (150-450)
[2017-06-24 15:14] LABS: INR 1.4 (<1.2); Prothrombin Time 12.9 sec (9.0-12.0)
[2017-06-24 15:17] LABS: Glucose,Whole Blood 120 mg/dL (75-99)
--- NOTE | 2017-06-24 15:19 | XR ---
EXAMINATION TYPE: XR chest 1V DATE OF EXAM: 06/24/2017 HISTORY: Post Op CABG COMPARISON: NONE TECHNIQUE: Single view of the chest is submitted. FINDINGS: Endotracheal tube, NG tube, SG catheter, mediastianal drains and chest tubes are appropriately placed . Post operative changes of CABG. No sizeable pneumothorax. Scattered Pleural-parenchymal opacities may reflect atelectasis. The heart is not enlarged. IMPRESSION: 1. Post operative changes of CABG.
[2017-06-24 15:23] LABS: ALT 22 U/L (21-72); AST 17 U/L (17-59); Albumin 3.1 g/dL (3.5-5.0); Alkaline Phosphatase 37 U/L (38-126); Anion Gap 10 mmol/L; Blood Urea Nitrogen 10 mg/dL (9-20); Calcium 7.7 mg/dL (8.4-10.2); Carbon Dioxide 24 mmol/L (22-30); Chloride 108 mmol/L (98-107); Glucose 94 mg/dL (74-99); Magnesium 2.3 mg/dL (1.6-2.3); Potassium 4.1 mmol/L (3.5-5.1); Sodium 142 mmol/L (137-145); Total Bilirubin 0.5 mg/dL (0.2-1.3)
[2017-06-24 16:12] LABS: Glucose,Whole Blood 116 mg/dL (75-99)
[2017-06-24] MEDS: IPRATROPIUM-ALBUTEROL 3 ML NEB INHALATION SCH ×2 (16:30→21:45)
--- NOTE | 2017-06-24 16:46 | PCN ---
PROCEDURE NOTE PROCEDURE: Bronchoscopy and bronchoalveolar lavage of the right upper lobe with mucus plug suctioning. PREOPERATIVE DIAGNOSIS: Complete collapse of the right upper lobe after coronary artery bypass grafting. POSTOPERATIVE DIAGNOSIS: Complete collapse of the right upper lobe after coronary artery bypass grafting. ANESTHESIA USED: Patient was already on propofol drip, and he was on other medications, including morphine, post surgery. PROCEDURE DESCRIPTION: Patient was placed in a supine position. He was already on mechanical ventilation. An adapter was applied to the endotracheal tube. We monitored his oxygen saturation continuously. We also monitored his cardiac rhythm continuously and blood pressure was also continuously monitored. The bronchoscope was advanced through the adapter of the endotracheal tube, advanced all the way down to the distal end of the endotracheal tube. It was about 3 cm above the guillaume. Examination of the right upper lobe, right middle lobe, right lower lobe was done, and the left side was also examined. No evidence of any endobronchial tumors. However, as I entered the right upper lobe bronchus, there was a relatively loose plug noted in the proximal portion of the right upper lobe bronchus. Suctioning was done, and I was able to retrieve the mucus plug easily from the right upper lobe bronchus. Lavage of the right upper lobe, including the anterior segment, apical segment and posterior segment, was done. Procedure was well tolerated. No evidence of any immediate complications. Chest x-ray postoperatively showed complete re-expansion of the right upper lobe. MMODL / IJN: [id number] /
[2017-06-24 17:02] LABS: Glucose,Whole Blood 142 mg/dL (75-99)
[2017-06-24 17:17] LABS: Ionized Calcium 4.6 mg/dL (4.5-5.3)
[2017-06-24 17:21] LABS: INR 1.2 (<1.2); Partial Thromboplastin Time 31.1 sec (22.0-30.0); Prothrombin Time 11.8 sec (9.0-12.0)
[2017-06-24 17:24] LABS: Anion Gap 11 mmol/L; Blood Urea Nitrogen 10 mg/dL (9-20); Calcium 8.3 mg/dL (8.4-10.2); Carbon Dioxide 22 mmol/L (22-30); Chloride 106 mmol/L (98-107); Glucose 138 mg/dL (74-99); Magnesium 2.1 mg/dL (1.6-2.3); Phosphorus 2.5 mg/dL (2.5-4.5); Potassium 4.1 mmol/L (3.5-5.1); Sodium 139 mmol/L (137-145)
[2017-06-24] MEDS: ceFAZolin IN SWFI 2 GM/20 ML SYRINGE IVP SCH ×2 (17:24→23:10)
[2017-06-24 17:25] LABS: Basophils % (A) 0 %; Eosinophils % (A) 0 %; HCT 32.5 % (39.0-53.0); HGB 11.3 gm/dL (13.0-17.5); Lymphocytes # (A) 0.7 k/uL (1.0-4.8); Lymphocytes % (A) 7 %; MCH 32.5 pg (25.0-35.0); MCHC 34.9 g/dL (31.0-37.0); MCV 93.2 fL (80.0-100.0); Mean Platelet Volume 7.7; Monocytes # (A) 0.5 k/uL (0-1.0); Monocytes % (A) 5 %; Neutrophils # (A) 8.5 k/uL (1.3-7.7); Neutrophils % (A) 86 %; Platelet Count 122 k/uL (150-450); RBC 3.49 m/uL (4.30-5.90); RDW 11.7 % (11.5-15.5); WBC 9.9 k/uL (3.8-10.6)
[2017-06-24] MEDS: ACETAMINOPHEN IV (For NPO) 1,000 MG in EMPTY BAG 1 BAG IVPB SCH ×2 (17:26→23:13)
[2017-06-24 18:01] LABS: Glucose,Whole Blood 138 mg/dL (75-99)
[2017-06-24 19:07] LABS: Glucose,Whole Blood 129 mg/dL (75-99)
[2017-06-24 19:25] LABS: ABG Base Excess -0.4 mmol/L; ABG HCO3 24 mmol/L (21-25); ABG Oxygen Saturation 92.2 % (94-97); ABG PCO2 36 mmHg (35-45); ABG PH 7.43 (7.35-7.45); ABG PO2 58 mmHg (83-108); ABG TCO2 25 mmol/L (19-24)
[2017-06-24 20:12] LABS: ABG Base Excess -0.9 mmol/L; ABG HCO3 23 mmol/L (21-25); ABG Oxygen Saturation 94.6 % (94-97); ABG PCO2 35 mmHg (35-45); ABG PH 7.44 (7.35-7.45); ABG PO2 65 mmHg (83-108); ABG TCO2 24 mmol/L (19-24)
[2017-06-24 20:18] LABS: Glucose,Whole Blood 150 mg/dL (75-99)
[2017-06-24] MEDS: ESMOLOL IN SODIUM CHLORIDE PMX 2.5 GM in SALINE 1 250ML.BAG IV SCH (20:50)
[2017-06-24 21:04] LABS: Basophils % (A) 0 %; Eosinophils % (A) 0 %; HCT 33.1 % (39.0-53.0); HGB 11.6 gm/dL (13.0-17.5); Lymphocytes # (A) 0.4 k/uL (1.0-4.8); Lymphocytes % (A) 4 %; MCH 32.3 pg (25.0-35.0); MCV 92.3 fL (80.0-100.0); Mean Platelet Volume 8.6; Monocytes # (A) 0.5 k/uL (0-1.0); Monocytes % (A) 4 %; Neutrophils # (A) 9.6 k/uL (1.3-7.7); Neutrophils % (A) 90 %; Platelet Count 132 k/uL (150-450); RBC 3.58 m/uL (4.30-5.90); RDW 11.6 % (11.5-15.5); WBC 10.7 k/uL (3.8-10.6)
[2017-06-24 21:07] LABS: INR 1.3 (<1.2)
[2017-06-24 21:09] LABS: Glucose,Whole Blood 150 mg/dL (75-99)
[2017-06-24 22:03] LABS: Glucose,Whole Blood 139 mg/dL (75-99)
[2017-06-24 22:08] LABS: Anion Gap 12 mmol/L; Blood Urea Nitrogen 10 mg/dL (9-20); Calcium 8.4 mg/dL (8.4-10.2); Carbon Dioxide 22 mmol/L (22-30); Chloride 104 mmol/L (98-107); Glucose 145 mg/dL (74-99); Magnesium 2.1 mg/dL (1.6-2.3); Potassium 3.9 mmol/L (3.5-5.1); Sodium 138 mmol/L (137-145)
[2017-06-24] MEDS: HEPARIN SODIUM,PORCINE 5,000 UNIT/ML 1 ML VIAL SQ SCH (22:29)
[2017-06-24] MEDS: MUPIROCIN 2% OINT 22 GM TUBE NASAL SCH (22:30)
[2017-06-24 23:12] LABS: Glucose,Whole Blood 121 mg/dL (75-99)
[2017-06-25 00:14] LABS: Glucose,Whole Blood 115 mg/dL (75-99)
[2017-06-25] MEDS: IPRATROPIUM-ALBUTEROL 3 ML NEB INHALATION SCH ×4 (00:37→21:14)
[2017-06-25 01:10] LABS: Glucose,Whole Blood 106 mg/dL (75-99)
[2017-06-25 02:08] LABS: Glucose,Whole Blood 113 mg/dL (75-99)
[2017-06-25] MEDS: CLEVIDIPINE BUTYRATE 25 MG in EMPTY BAG 1 BAG IV SCH ×2 (02:38→06:40)
[2017-06-25 03:09] LABS: Glucose,Whole Blood 119 mg/dL (75-99)
[2017-06-25 04:27] LABS: Glucose,Whole Blood 114 mg/dL (75-99)
[2017-06-25 04:34] LABS: Basophils % (A) 0 %; Eosinophils % (A) 0 %; HCT 31.7 % (39.0-53.0); HGB 10.9 gm/dL (13.0-17.5); Lymphocytes # (A) 0.9 k/uL (1.0-4.8); Lymphocytes % (A) 8 %; MCH 31.8 pg (25.0-35.0); MCHC 34.4 g/dL (31.0-37.0); MCV 92.6 fL (80.0-100.0); Mean Platelet Volume 8.2; Monocytes # (A) 0.6 k/uL (0-1.0); Monocytes % (A) 5 %; Neutrophils # (A) 9.5 k/uL (1.3-7.7); Neutrophils % (A) 84 %; Platelet Count 139 k/uL (150-450); RBC 3.43 m/uL (4.30-5.90); RDW 11.8 % (11.5-15.5); WBC 11.3 k/uL (3.8-10.6)
[2017-06-25] MEDS: MORPHINE SULFATE 4 MG/ML SYRINGE IVP PRN ×2 (04:36→07:19)
[2017-06-25 04:44] LABS: Ionized Calcium 4.7 mg/dL (4.5-5.3)
[2017-06-25 04:45] LABS: INR 1.3 (<1.2); Partial Thromboplastin Time 27.2 sec (22.0-30.0); Prothrombin Time 12.2 sec (9.0-12.0)
[2017-06-25 04:59] LABS: ALT 22 U/L (21-72); AST 27 U/L (17-59); Albumin 3.4 g/dL (3.5-5.0); Alkaline Phosphatase 42 U/L (38-126); Anion Gap 9 mmol/L; Blood Urea Nitrogen 10 mg/dL (9-20); Calcium 8.3 mg/dL (8.4-10.2); Carbon Dioxide 24 mmol/L (22-30); Chloride 103 mmol/L (98-107); Glucose 117 mg/dL (74-99); Potassium 4.1 mmol/L (3.5-5.1); Sodium 136 mmol/L (137-145); Total Bilirubin 0.8 mg/dL (0.2-1.3); Total Protein 5.5 g/dL (6.3-8.2)
[2017-06-25] MEDS: ACETAMINOPHEN IV (For NPO) 1,000 MG in EMPTY BAG 1 BAG IVPB SCH ×3 (05:39→20:20)
[2017-06-25 06:37] LABS: Glucose,Whole Blood 118 mg/dL (75-99)
[2017-06-25] MEDS: ESMOLOL IN SODIUM CHLORIDE PMX 2.5 GM in SALINE 1 250ML.BAG IV SCH (06:38)
[2017-06-25 07:16] LABS: Glucose,Whole Blood 121 mg/dL (75-99)
--- NOTE | 2017-06-25 07:20 | XR ---
EXAMINATION TYPE: XR chest 1V portable DATE OF EXAM: 06/25/2017 HISTORY: Post Operative Cardiac Surgery. REFERENCE: Previous study dated 06/24/2017. FINDINGS: There has been a midline sternotomy. The patient has been extubated. The patient is NG tube is been removed. A left pleural drain remains in place. There is a Olpe-Wale catheter in place via a right internal jugular approach. Its tip is in the right interlobar artery. The heart is mildly enlarged. There is a small left effusion. There is some left basilar atelectasis. IMPRESSION: CONTINUING POSTOPERATIVE CHANGE.
[2017-06-25] MEDS: IPRATROPIUM-ALBUTEROL 3 ML NEB INHALATION PRN ×2 (07:27→11:12)
[2017-06-25] MEDS ORDERED: METOPROLOL TARTRATE 12.5 MG TAB PO SCH (09:00)
[2017-06-25] MEDS: HEPARIN SODIUM,PORCINE 5,000 UNIT/ML 1 ML VIAL SQ SCH ×2 (09:02→16:49)
[2017-06-25] MEDS: ASPIRIN 325 MG TAB PO SCH (09:06)
[2017-06-25] MEDS: CLOPIDOGREL 75 MG TAB PO SCH (09:06)
[2017-06-25] MEDS: ATORVASTATIN 40 MG TAB PO SCH (09:06)
[2017-06-25 09:23] LABS: Glucose,Whole Blood 115 mg/dL (75-99)
[2017-06-25 09:23] LABS: Glucose,Whole Blood 118 mg/dL (75-99)
[2017-06-25] MEDS: KETOROLAC 30 MG/ML 1 ML VIAL IVP SCH ×4 (09:36→20:33)
[2017-06-25] MEDS: PANTOPRAZOLE 40 MG/10 ML VIAL IVP SCH (09:38)
[2017-06-25] MEDS: MUPIROCIN 2% OINT 22 GM TUBE NASAL SCH ×2 (09:38→20:33)
--- NOTE | 2017-06-25 09:44 | P.PN ---
Subjective Progress Note Date: 06/25/17 Principal diagnosis: Coronary artery disease. History of GERD. Family history of premature coronary artery disease. POD #1 urgent coronary artery bypass grafting 2 with the left internal mammary artery to the left anterior descending artery, reverse saphenous vein graft to diagonal artery. Endoscopic vein harvesting of the left greater saphenous vein. Intraoperative transesophageal echocardiogram and epi-aortic scanning. Postoperative complete collapse of the right upper lobe after surgery, an unexpected about potential outcome of surgery. POD #1 bronchoscopy and bronchial alveolar lavage of the right upper lobe with mucous plug suctioning. Patient's currently sitting up in a recliner in no acute distress. Was successfully extubated last night at 20:37. Denies pain or shortness of breath. Objective - Vital Signs Vital signs: Vital Signs Temp 99.5 F 06/25/17 04:00 Pulse 85 06/25/17 08:30 Resp 16 06/25/17 08:30 BP 111/59 06/25/17 08:30 Pulse Ox 95 06/25/17 06:00 Intake & Output 18 18 06/25/17 18:59 06:59 18:59 Intake Total 421.594 6413.488 145 Output Total 3471 1371 147 Balance -2777.429 -208.512 -2 Weight 97.3 kg Intake: IV 489 782 145 CI/CO 120 110 30 Lactated Ringers 1,000 ml 300 600 100 @ 20 mls/hr IV .Q24H [facility] Rx#:[id number] pressure bag 36 72 15 Intake, IV Titration 204.571 380.488 0 Amount Clevidipine Butyrate 25 102.234 179.500 mg In Empty Bag 1 bag @ 1 MG/HR 2 mls/hr IV .Q24H [facility] Rx#:[id number] Esmolol in Sodium 183.646 Chloride Pmx 2.5 gm In Saline 1 250ml.bag @ 50 MCG/KG/MIN 29.19 mls/hr IV .Q8H34M [facility] Rx#: [id number] Insulin Regular 100 unit 2.284 16.142 0 In Sodium Chloride 0.9% 100 ml @ Per Protocol IV .Q0M [facility] Rx#:[id number] Nitroglycerin-D5w Pmx 50 0.825 mg In Dextrose/Water 1 250ml.bag @ 5 MCG/MIN 1.5 mls/hr IV .Q24H [facility] Rx#: [id number] Propofol 1,000 mg In 99.228 1.2 Empty Bag 1 bag @ Titrate IV .Q0M [facility] Rx#: [id number] Output: Chest Tube Drainage 241 306 57 Chest Tube Left Pleural 89 107 22 Chest Tube Mediastinal 152 199 35 Drainage 25 5 Left Calf 25 5 Urine 2004 1060 90 Estimated Blood Loss 1200 Other: Voiding Method Indwelling Catheter Indwelling Catheter ABP, PAP, CO, CI - Last Documented Arterial Blood Pressure 148/63 Pulmonary Artery Pressure 30/13 Cardiac Output 6.7 Cardiac Index 3.0 - Constitutional General appearance: Present: cooperative, no acute distress - Respiratory Details: Lungs sounds diminished bilaterally. Respirations even, nonlabored. Currently on 5 L nasal cannula with oxygen saturation 94%. Able to achieve 1000 mL on his incentive spirometry. Mediastinal chest tube to continuous wall suction, 80 mL serosanguineous drainage overnight, 400 mL since surgery. Left pleural chest tube to continuous wall suction, 80 mL thin serosanguineous drainage overnight, 190 mL since surgery. No air leaks present. - Cardiovascular Details: S1, S2 present. Pericardial rub present. Regular rate and rhythm, sinus rhythm on telemetry. A/V epicardial pacemaker wires present, grounded. Sternum stable. Palpable peripheral pulses bilaterally. No edema present. No calf pain or tenderness noted. Right internal jugular Plainwell/Cordis, left radial arterial line present. Most recent CO/CI 9.8/4.5 on no inotropes. Heart hugger in place with patient demonstrate appropriate use. Antiembolism stockings, SCDs present. - Gastrointestinal Gastrointestinal Comment(s): Abdomen soft, nontender, nondistended. Active bowel sounds. Tolerating clear liquids. - Genitourinary Genitourinary Comment(s): Hall present draining clear, yellow urine. Output 60-100 mL/h overnight. - Integumentary Integumentary Comment(s): Skin is warm and dry with evidence of good perfusion. Anterior chest incision well approximated and covered with dry intact dressing. Left lower extremity EVH site well approximated, LUIS drain present with minimal serosanguineous drainage. - Neurologic Neurologic: Present: CNII-XII intact - Musculoskeletal Musculoskeletal: Present: gait normal, strength equal bilaterally - Psychiatric Psychiatric: Present: A&O x's 3, appropriate affect, intact judgment & insight - Allied health notes Allied health notes reviewed: nursing - Labs CBC & Chem 7: 06/25/17 04:24 06/25/17 04:24 Labs: Abnormal Lab Results - Last 24 Hours (Table) 06/24/17 06/24/17 06/24/17 Range/Units 08:37 10:47 11:14 WBC (3.8-10.6) k/uL RBC (4.30-5.90) m/uL Hgb (13.0-17.5) gm/dL Hct (39.0-53.0) % Plt Count (150-450) k/uL Neutrophils # (1.3-7.7) k/uL Lymphocytes # (1.0-4.8) k/uL PT (9.0-12.0) sec INR (<1.2) APTT (22.0-30.0) sec ABG pH 7.34 L (7.35-7.45) ABG pO2 304 H 227 H 318 H (83-108) mmHg ABG Total CO2 26 H 25 H (19-24) mmol/L ABG O2 Saturation 100.0 H 99.8 H 100.0 H (94-97) % ABG Hematocrit 30 L 29 L (34.0-46.0) % ABG Sodium 133 L 134 L (135-146) mmol/L ABG Potassium 4.7 H 5.1 H 5.2 H (3.4-4.5) mmol/L ABG Ionized Calcium 4.3 L 4.3 L (4.5-5.3) mg/dL ABG Glucose 112 H 173 H 170 H (75-99) mg/dL Hemoglobin 9.9 L 9.4 L (13.0-17.5) gm/dL Sodium (137-145) mmol/L Chloride (98-107) mmol/L Glucose (74-99) mg/dL POC Glucose (mg/dL) (75-99) mg/dL Calcium (8.4-10.2) mg/dL Alkaline Phosphatase (38-126) U/L Total Protein (6.3-8.2) g/dL Albumin (3.5-5.0) g/dL Arterial Blood Potassium 4.7 H 5.1 H 5.2 H (3.4-4.5) mmol/L Arterial Blood Glucose 112 H 173 H 170 H (75-99) mg/dL 06/24/17 06/24/17 06/24/17 Range/Units 12:18 13:26 13:30 WBC (3.8-10.6) k/uL RBC 2.93 L (4.30-5.90) m/uL Hgb 9.2 L D (13.0-17.5) gm/dL Hct 27.5 L (39.0-53.0) % Plt Count 107 L D (150-450) k/uL Neutrophils # (1.3-7.7) k/uL Lymphocytes # 0.7 L (1.0-4.8) k/uL PT (9.0-12.0) sec INR (<1.2) APTT (22.0-30.0) sec ABG pH (7.35-7.45) ABG pO2 145 H (83-108) mmHg ABG Total CO2 26 H (19-24) mmol/L ABG O2 Saturation 99.4 H (94-97) % ABG Hematocrit 32 L (34.0-46.0) % ABG Sodium (135-146) mmol/L ABG Potassium (3.4-4.5) mmol/L ABG Ionized Calcium 4.3 L (4.5-5.3) mg/dL ABG Glucose 140 H (75-99) mg/dL Hemoglobin 10.6 L (13.0-17.5) gm/dL Sodium (137-145) mmol/L Chloride (98-107) mmol/L Glucose (74-99) mg/dL POC Glucose (mg/dL) 104 H (75-99) mg/dL Calcium (8.4-10.2) mg/dL Alkaline Phosphatase (38-126) U/L Total Protein (6.3-8.2) g/dL Albumin (3.5-5.0) g/dL Arterial Blood Potassium (3.4-4.5) mmol/L Arterial Blood Glucose 140 H (75-99) mg/dL 06/24/1718 06/24/17 Range/Units 13:30 13:30 13:58 WBC (3.8-10.6) k/uL RBC (4.30-5.90) m/uL Hgb (13.0-17.5) gm/dL Hct (39.0-53.0) % Plt Count (150-450) k/uL Neutrophils # (1.3-7.7) k/uL Lymphocytes # (1.0-4.8) k/uL PT 12.9 H (9.0-12.0) sec INR 1.4 H (<1.2) APTT 32.0 H (22.0-30.0) sec ABG pH (7.35-7.45) ABG pO2 (83-108) mmHg ABG Total CO2 27 H (19-24) mmol/L ABG O2 Saturation (94-97) % ABG Hematocrit (34.0-46.0) % ABG Sodium (135-146) mmol/L ABG Potassium (3.4-4.5) mmol/L ABG Ionized Calcium (4.5-5.3) mg/dL ABG Glucose (75-99) mg/dL Hemoglobin (13.0-17.5) gm/dL Sodium (137-145) mmol/L Chloride 108 H (98-107) mmol/L Glucose (74-99) mg/dL POC Glucose (mg/dL) (75-99) mg/dL Calcium 7.7 L (8.4-10.2) mg/dL Alkaline Phosphatase 37 L (38-126) U/L Total Protein 5.0 L (6.3-8.2) g/dL Albumin 3.1 L (3.5-5.0) g/dL Arterial Blood Potassium (3.4-4.5) mmol/L Arterial Blood Glucose (75-99) mg/dL 06/24/17 06/24/17 06/24/17 Range/Units 15:15 16:10 16:58 WBC (3.8-10.6) k/uL RBC (4.30-5.90) m/uL Hgb (13.0-17.5) gm/dL Hct (39.0-53.0) % Plt Count (150-450) k/uL Neutrophils # (1.3-7.7) k/uL Lymphocytes # (1.0-4.8) k/uL PT (9.0-12.0) sec INR 1.2 H (<1.2) APTT 31.1 H (22.0-30.0) sec ABG pH (7.35-7.45) ABG pO2 (83-108) mmHg ABG Total CO2 (19-24) mmol/L ABG O2 Saturation (94-97) % ABG Hematocrit (34.0-46.0) % ABG Sodium (135-146) mmol/L ABG Potassium (3.4-4.5) mmol/L ABG Ionized Calcium (4.5-5.3) mg/dL ABG Glucose (75-99) mg/dL Hemoglobin (13.0-17.5) gm/dL Sodium (137-145) mmol/L Chloride (98-107) mmol/L Glucose (74-99) mg/dL POC Glucose (mg/dL) 120 H 116 H (75-99) mg/dL Calcium (8.4-10.2) mg/dL Alkaline Phosphatase (38-126) U/L Total Protein (6.3-8.2) g/dL Albumin (3.5-5.0) g/dL Arterial Blood Potassium (3.4-4.5) mmol/L Arterial Blood Glucose (75-99) mg/dL 06/24/17 06/24/17 06/24/17 Range/Units 16:58 16:58 17:00 WBC (3.8-10.6) k/uL RBC 3.49 L (4.30-5.90) m/uL Hgb 11.3 L (13.0-17.5) gm/dL Hct 32.5 L (39.0-53.0) % Plt Count 122 L (150-450) k/uL Neutrophils # 8.5 H (1.3-7.7) k/uL Lymphocytes # 0.7 L (1.0-4.8) k/uL PT (9.0-12.0) sec INR (<1.2) APTT (22.0-30.0) sec ABG pH (7.35-7.45) ABG pO2 (83-108) mmHg ABG Total CO2 (19-24) mmol/L ABG O2 Saturation (94-97) % ABG Hematocrit (34.0-46.0) % ABG Sodium (135-146) mmol/L ABG Potassium (3.4-4.5) mmol/L ABG Ionized Calcium (4.5-5.3) mg/dL ABG Glucose (75-99) mg/dL Hemoglobin (13.0-17.5) gm/dL Sodium (137-145) mmol/L Chloride (98-107) mmol/L Glucose 138 H (74-99) mg/dL POC Glucose (mg/dL) 142 H (75-99) mg/dL Calcium 8.3 L (8.4-10.2) mg/dL Alkaline Phosphatase (38-126) U/L Total Protein (6.3-8.2) g/dL Albumin (3.5-5.0) g/dL Arterial Blood Potassium (3.4-4.5) mmol/L Arterial Blood Glucose (75-99) mg/dL 06/24/17 06/24/17 06/24/17 Range/Units 17:59 19:05 19:23 WBC (3.8-10.6) k/uL RBC (4.30-5.90) m/uL Hgb (13.0-17.5) gm/dL Hct (39.0-53.0) % Plt Count (150-450) k/uL Neutrophils # (1.3-7.7) k/uL Lymphocytes # (1.0-4.8) k/uL PT (9.0-12.0) sec INR (<1.2) APTT (22.0-30.0) sec ABG pH (7.35-7.45) ABG pO2 58 L (83-108) mmHg ABG Total CO2 25 H (19-24) mmol/L ABG O2 Saturation 92.2 L (94-97) % ABG Hematocrit (34.0-46.0) % ABG Sodium (135-146) mmol/L ABG Potassium (3.4-4.5) mmol/L ABG Ionized Calcium (4.5-5.3) mg/dL ABG Glucose (75-99) mg/dL Hemoglobin (13.0-17.5) gm/dL Sodium (137-145) mmol/L Chloride (98-107) mmol/L Glucose (74-99) mg/dL POC Glucose (mg/dL) 138 H 129 H (75-99) mg/dL Calcium (8.4-10.2) mg/dL Alkaline Phosphatase (38-126) U/L Total Protein (6.3-8.2) g/dL Albumin (3.5-5.0) g/dL Arterial Blood Potassium (3.4-4.5) mmol/L Arterial Blood Glucose (75-99) mg/dL 06/24/17 06/24/17 06/24/17 Range/Units 20:11 20:13 20:23 WBC 10.7 H (3.8-10.6) k/uL RBC 3.58 L (4.30-5.90) m/uL Hgb 11.6 L (13.0-17.5) gm/dL Hct 33.1 L (39.0-53.0) % Plt Count 132 L (150-450) k/uL Neutrophils # 9.6 H (1.3-7.7) k/uL Lymphocytes # 0.4 L (1.0-4.8) k/uL PT (9.0-12.0) sec INR (<1.2) APTT (22.0-30.0) sec ABG pH (7.35-7.45) ABG pO2 65 L (83-108) mmHg ABG Total CO2 (19-24) mmol/L ABG O2 Saturation (94-97) % ABG Hematocrit (34.0-46.0) % ABG Sodium (135-146) mmol/L ABG Potassium (3.4-4.5) mmol/L ABG Ionized Calcium (4.5-5.3) mg/dL ABG Glucose (75-99) mg/dL Hemoglobin (13.0-17.5) gm/dL Sodium (137-145) mmol/L Chloride (98-107) mmol/L Glucose (74-99) mg/dL POC Glucose (mg/dL) 150 H (75-99) mg/dL Calcium (8.4-10.2) mg/dL Alkaline Phosphatase (38-126) U/L Total Protein (6.3-8.2) g/dL Albumin (3.5-5.0) g/dL Arterial Blood Potassium (3.4-4.5) mmol/L Arterial Blood Glucose (75-99) mg/dL 06/24/17 06/24/17 06/24/17 Range/Units 20:23 20:23 21:06 WBC (3.8-10.6) k/uL RBC (4.30-5.90) m/uL Hgb (13.0-17.5) gm/dL Hct (39.0-53.0) % Plt Count (150-450) k/uL Neutrophils # (1.3-7.7) k/uL Lymphocytes # (1.0-4.8) k/uL PT (9.0-12.0) sec INR 1.3 H (<1.2) APTT (22.0-30.0) sec ABG pH (7.35-7.45) ABG pO2 (83-108) mmHg ABG Total CO2 (19-24) mmol/L ABG O2 Saturation (94-97) % ABG Hematocrit (34.0-46.0) % ABG Sodium (135-146) mmol/L ABG Potassium (3.4-4.5) mmol/L ABG Ionized Calcium (4.5-5.3) mg/dL ABG Glucose (75-99) mg/dL Hemoglobin (13.0-17.5) gm/dL Sodium (137-145) mmol/L Chloride (98-107) mmol/L Glucose 145 H (74-99) mg/dL POC Glucose (mg/dL) 150 H (75-99) mg/dL Calcium (8.4-10.2) mg/dL Alkaline Phosphatase (38-126) U/L Total Protein (6.3-8.2) g/dL Albumin (3.5-5.0) g/dL Arterial Blood Potassium (3.4-4.5) mmol/L Arterial Blood Glucose (75-99) mg/dL 06/24/17 06/24/17 06/25/17 Range/Units 22:00 23:07 00:12 WBC (3.8-10.6) k/uL RBC (4.30-5.90) m/uL Hgb (13.0-17.5) gm/dL Hct (39.0-53.0) % Plt Count (150-450) k/uL Neutrophils # (1.3-7.7) k/uL Lymphocytes # (1.0-4.8) k/uL PT (9.0-12.0) sec INR (<1.2) APTT (22.0-30.0) sec ABG pH (7.35-7.45) ABG pO2 (83-108) mmHg ABG Total CO2 (19-24) mmol/L ABG O2 Saturation (94-97) % ABG Hematocrit (34.0-46.0) % ABG Sodium (135-146) mmol/L ABG Potassium (3.4-4.5) mmol/L ABG Ionized Calcium (4.5-5.3) mg/dL ABG Glucose (75-99) mg/dL Hemoglobin (13.0-17.5) gm/dL Sodium (137-145) mmol/L Chloride (98-107) mmol/L Glucose (74-99) mg/dL POC Glucose (mg/dL) 139 H 121 H 115 H (75-99) mg/dL Calcium (8.4-10.2) mg/dL Alkaline Phosphatase (38-126) U/L Total Protein (6.3-8.2) g/dL Albumin (3.5-5.0) g/dL Arterial Blood Potassium (3.4-4.5) mmol/L Arterial Blood Glucose (75-99) mg/dL 06/25/17 06/25/17 06/25/17 Range/Units 01:07 02:03 03:07 WBC (3.8-10.6) k/uL RBC (4.30-5.90) m/uL Hgb (13.0-17.5) gm/dL Hct (39.0-53.0) % Plt Count (150-450) k/uL Neutrophils # (1.3-7.7) k/uL Lymphocytes # (1.0-4.8) k/uL PT (9.0-12.0) sec INR (<1.2) APTT (22.0-30.0) sec ABG pH (7.35-7.45) ABG pO2 (83-108) mmHg ABG Total CO2 (19-24) mmol/L ABG O2 Saturation (94-97) % ABG Hematocrit (34.0-46.0) % ABG Sodium (135-146) mmol/L ABG Potassium (3.4-4.5) mmol/L ABG Ionized Calcium (4.5-5.3) mg/dL ABG Glucose (75-99) mg/dL Hemoglobin (13.0-17.5) gm/dL Sodium (137-145) mmol/L Chloride (98-107) mmol/L Glucose (74-99) mg/dL POC Glucose (mg/dL) 106 H 113 H 119 H (75-99) mg/dL Calcium (8.4-10.2) mg/dL Alkaline Phosphatase (38-126) U/L Total Protein (6.3-8.2) g/dL Albumin (3.5-5.0) g/dL Arterial Blood Potassium (3.4-4.5) mmol/L Arterial Blood Glucose (75-99) mg/dL 06/25/17 06/25/17 06/25/17 Range/Units 04:24 04:24 04:24 WBC 11.3 H (3.8-10.6) k/uL RBC 3.43 L (4.30-5.90) m/uL Hgb 10.9 L (13.0-17.5) gm/dL Hct 31.7 L (39.0-53.0) % Plt Count 139 L (150-450) k/uL Neutrophils # 9.5 H (1.3-7.7) k/uL Lymphocytes # 0.9 L (1.0-4.8) k/uL PT 12.2 H (9.0-12.0) sec INR 1.3 H (<1.2) APTT (22.0-30.0) sec ABG pH (7.35-7.45) ABG pO2 (83-108) mmHg ABG Total CO2 (19-24) mmol/L ABG O2 Saturation (94-97) % ABG Hematocrit (34.0-46.0) % ABG Sodium (135-146) mmol/L ABG Potassium (3.4-4.5) mmol/L ABG Ionized Calcium (4.5-5.3) mg/dL ABG Glucose (75-99) mg/dL Hemoglobin (13.0-17.5) gm/dL Sodium 136 L (137-145) mmol/L Chloride (98-107) mmol/L Glucose 117 H (74-99) mg/dL POC Glucose (mg/dL) (75-99) mg/dL Calcium 8.3 L (8.4-10.2) mg/dL Alkaline Phosphatase (38-126) U/L Total Protein 5.5 L (6.3-8.2) g/dL Albumin 3.4 L (3.5-5.0) g/dL Arterial Blood Potassium (3.4-4.5) mmol/L Arterial Blood Glucose (75-99) mg/dL 06/25/17 06/25/17 06/25/17 Range/Units 04:26 06:17 07:13 WBC (3.8-10.6) k/uL RBC (4.30-5.90) m/uL Hgb (13.0-17.5) gm/dL Hct (39.0-53.0) % Plt Count (150-450) k/uL Neutrophils # (1.3-7.7) k/uL Lymphocytes # (1.0-4.8) k/uL PT (9.0-12.0) sec INR (<1.2) APTT (22.0-30.0) sec ABG pH (7.35-7.45) ABG pO2 (83-108) mmHg ABG Total CO2 (19-24) mmol/L ABG O2 Saturation (94-97) % ABG Hematocrit (34.0-46.0) % ABG Sodium (135-146) mmol/L ABG Potassium (3.4-4.5) mmol/L ABG Ionized Calcium (4.5-5.3) mg/dL ABG Glucose (75-99) mg/dL Hemoglobin (13.0-17.5) gm/dL Sodium (137-145) mmol/L Chloride (98-107) mmol/L Glucose (74-99) mg/dL POC Glucose (mg/dL) 114 H 118 H 121 H (75-99) mg/dL Calcium (8.4-10.2) mg/dL Alkaline Phosphatase (38-126) U/L Total Protein (6.3-8.2) g/dL Albumin (3.5-5.0) g/dL Arterial Blood Potassium (3.4-4.5) mmol/L Arterial Blood Glucose (75-99) mg/dL 06/25/17 06/25/17 Range/Units 08:26 09:20 WBC (3.8-10.6) k/uL RBC (4.30-5.90) m/uL Hgb (13.0-17.5) gm/dL Hct (39.0-53.0) % Plt Count (150-450) k/uL Neutrophils # (1.3-7.7) k/uL Lymphocytes # (1.0-4.8) k/uL PT (9.0-12.0) sec INR (<1.2) APTT (22.0-30.0) sec ABG pH (7.35-7.45) ABG pO2 (83-108) mmHg ABG Total CO2 (19-24) mmol/L ABG O2 Saturation (94-97) % ABG Hematocrit (34.0-46.0) % ABG Sodium (135-146) mmol/L ABG Potassium (3.4-4.5) mmol/L ABG Ionized Calcium (4.5-5.3) mg/dL ABG Glucose (75-99) mg/dL Hemoglobin (13.0-17.5) gm/dL Sodium (137-145) mmol/L Chloride (98-107) mmol/L Glucose (74-99) mg/dL POC Glucose (mg/dL) 118 H 115 H (75-99) mg/dL Calcium (8.4-10.2) mg/dL Alkaline Phosphatase (38-126) U/L Total Protein (6.3-8.2) g/dL Albumin (3.5-5.0) g/dL Arterial Blood Potassium (3.4-4.5) mmol/L Arterial Blood Glucose (75-99) mg/dL Microbiology - Last 24 Hours (Table) 06/24/17 15:12 Gram Stain - Preliminary Bronchial Washings - Left Bronchial Washings Culture - Preliminary - Imaging and Cardiology Chest x-ray: report reviewed, image reviewed Assessment and Plan (1) Family history of premature coronary artery disease Current Visit: Yes Status: Chronic Code(s): Z82.49 - FAMILY HX OF [place] HEART DIS AND OTH DIS OF THE CIRC SYS SNOMED Code(s): 420946983 (2) Coronary artery disease Current Visit: Yes Status: Chronic Code(s): I25.10 - ATHSCL HEART DISEASE OF [place] CORONARY ARTERY W/O ANG PCTRS SNOMED Code(s): 98902252 (3) GERD (gastroesophageal reflux disease) Current Visit: Yes Status: Chronic Code(s): K21.9 - GASTRO-ESOPHAGEAL REFLUX DISEASE WITHOUT ESOPHAGITIS SNOMED Code(s): 206047645 Plan: 1. Continue aspirin, statin, Plavix, subcu heparin, and devin. Will maximize beta devin therapy as tolerated. 2. Wean O2 as tolerated. Encourage incentive spirometry 10 times every hour. 3. Increase activity, ambulate in room. PT/OT/crit rehab following. 4. Wean Cleviprex as tolerated. 5. Discontinue nitroglycerin drip. 6. Discontinue Plainwell, connected Cordis to continue CVP monitoring. 7. Will monitor daily labs and x-rays. 8. GI/DVT prophylaxis. 9. Insulin drip management per primary care services. 10. More recommendations to follow. Time with Patient: Greater than 30
[2017-06-25 10:10] LABS: Glucose,Whole Blood 114 mg/dL (75-99)
[2017-06-25 10:50] VITALS: BMI 29.0
--- NOTE | 2017-06-25 11:50 | P.PN ---
Subjective Progress Note Date: 06/25/17 Principal diagnosis: Status post CABG Patient is sitting up in chair was extubated successfully yesterday without any complication currently denying chest pain, shortness breath, nausea, vomiting, dumping, dizziness, lightheadedness or blurry vision. Chest tubes continue to suction minimum amount of the fluid. Hall catheter with adequate urine output. Arterial line is giving higher reading than the regular cuff measurement. Patient in no acute distress and family at the bedside. Patient was weaned off esmolol drip and his blood pressure under fair control at this point. Objective - Vital Signs Vital signs: Vital Signs Temp 99.5 F 06/25/17 04:00 Pulse 79 06/25/17 11:23 Resp 18 06/25/17 11:00 BP 110/65 06/25/17 11:00 Pulse Ox 96 06/25/17 08:30 Intake & Output 06/24/17 06/25/17 06/25/17 18:59 06:59 18:59 Intake Total 170.207 4305.488 322 Output Total 3471 1371 357 Balance -2777.429 -208.512 -35 Weight 97.3 kg 97.3 kg Intake: IV 489 782 322 CI/CO 120 110 30 Lactated Ringers 1,000 ml 300 600 250 @ 20 mls/hr IV .Q24H [facility] Rx#:[id number] pressure bag 36 72 42 Intake, IV Titration 204.571 380.488 0 Amount Clevidipine Butyrate 25 102.234 179.500 mg In Empty Bag 1 bag @ 1 MG/HR 2 mls/hr IV .Q24H [facility] Rx#:[id number] Esmolol in Sodium 183.646 Chloride Pmx 2.5 gm In Saline 1 250ml.bag @ 50 MCG/KG/MIN 29.19 mls/hr IV .Q8H34M [facility] Rx#: [id number] Insulin Regular 100 unit 2.284 16.142 0 In Sodium Chloride 0.9% 100 ml @ Per Protocol IV .Q0M [facility] Rx#:[id number] Nitroglycerin-D5w Pmx 50 0.825 mg In Dextrose/Water 1 250ml.bag @ 5 MCG/MIN 1.5 mls/hr IV .Q24H [facility] Rx#: [id number] Propofol 1,000 mg In 99.228 1.2 Empty Bag 1 bag @ Titrate IV .Q0M [facility] Rx#: [id number] Output: Chest Tube Drainage 241 306 123 Chest Tube Left Pleural 89 107 48 Chest Tube Mediastinal 152 199 75 Drainage 25 5 Left Calf 25 5 Urine 2004 1060 234 Estimated Blood Loss 1200 Other: Voiding Method Indwelling Catheter Indwelling Catheter Indwelling Catheter ABP, PAP, CO, CI - Last Documented Arterial Blood Pressure 148/63 Pulmonary Artery Pressure 33/16 Cardiac Output 6.7 Cardiac Index 3.0 - Exam Gen.: in stated age, no acute distress, right side of the neck positive for central venous catheter in place seems to be intact Heart: Normal S1-S2 Lungs: Clear to auscultation bilaterally Abdomen: Soft, no tenderness, positive bowel sounds in all 4 quadrant no guarding or rebound Skin: No new rash Genitourinary positive for Hall catheter in place with clear urine Psych: Alert and oriented 3 Neuro: No focal deficit - Labs CBC & Chem 7: 06/25/17 04:24 06/25/17 04:24 Labs: Abnormal Lab Results - Last 24 Hours (Table) 06/24/17 06/24/17 06/24/17 Range/Units 08:37 10:47 11:14 WBC (3.8-10.6) k/uL RBC (4.30-5.90) m/uL Hgb (13.0-17.5) gm/dL Hct (39.0-53.0) % Plt Count (150-450) k/uL Neutrophils # (1.3-7.7) k/uL Lymphocytes # (1.0-4.8) k/uL PT (9.0-12.0) sec INR (<1.2) APTT (22.0-30.0) sec ABG pH 7.34 L (7.35-7.45) ABG pO2 304 H 227 H 318 H (83-108) mmHg ABG Total CO2 26 H 25 H (19-24) mmol/L ABG O2 Saturation 100.0 H 99.8 H 100.0 H (94-97) % ABG Hematocrit 30 L 29 L (34.0-46.0) % ABG Sodium 133 L 134 L (135-146) mmol/L ABG Potassium 4.7 H 5.1 H 5.2 H (3.4-4.5) mmol/L ABG Ionized Calcium 4.3 L 4.3 L (4.5-5.3) mg/dL ABG Glucose 112 H 173 H 170 H (75-99) mg/dL Hemoglobin 9.9 L 9.4 L (13.0-17.5) gm/dL Sodium (137-145) mmol/L Chloride (98-107) mmol/L Glucose (74-99) mg/dL POC Glucose (mg/dL) (75-99) mg/dL Calcium (8.4-10.2) mg/dL Alkaline Phosphatase (38-126) U/L Total Protein (6.3-8.2) g/dL Albumin (3.5-5.0) g/dL Arterial Blood Potassium 4.7 H 5.1 H 5.2 H (3.4-4.5) mmol/L Arterial Blood Glucose 112 H 173 H 170 H (75-99) mg/dL 06/24/17 06/24/17 06/24/17 Range/Units 12:18 13:26 13:30 WBC (3.8-10.6) k/uL RBC 2.93 L (4.30-5.90) m/uL Hgb 9.2 L D (13.0-17.5) gm/dL Hct 27.5 L (39.0-53.0) % Plt Count 107 L D (150-450) k/uL Neutrophils # (1.3-7.7) k/uL Lymphocytes # 0.7 L (1.0-4.8) k/uL PT (9.0-12.0) sec INR (<1.2) APTT (22.0-30.0) sec ABG pH (7.35-7.45) ABG pO2 145 H (83-108) mmHg ABG Total CO2 26 H (19-24) mmol/L ABG O2 Saturation 99.4 H (94-97) % ABG Hematocrit 32 L (34.0-46.0) % ABG Sodium (135-146) mmol/L ABG Potassium (3.4-4.5) mmol/L ABG Ionized Calcium 4.3 L (4.5-5.3) mg/dL ABG Glucose 140 H (75-99) mg/dL Hemoglobin 10.6 L (13.0-17.5) gm/dL Sodium (137-145) mmol/L Chloride (98-107) mmol/L Glucose (74-99) mg/dL POC Glucose (mg/dL) 104 H (75-99) mg/dL Calcium (8.4-10.2) mg/dL Alkaline Phosphatase (38-126) U/L Total Protein (6.3-8.2) g/dL Albumin (3.5-5.0) g/dL Arterial Blood Potassium (3.4-4.5) mmol/L Arterial Blood Glucose 140 H (75-99) mg/dL 06/24/17 06/24/17 06/24/17 Range/Units 13:30 13:30 13:58 WBC (3.8-10.6) k/uL RBC (4.30-5.90) m/uL Hgb (13.0-17.5) gm/dL Hct (39.0-53.0) % Plt Count (150-450) k/uL Neutrophils # (1.3-7.7) k/uL Lymphocytes # (1.0-4.8) k/uL PT 12.9 H (9.0-12.0) sec INR 1.4 H (<1.2) APTT 32.0 H (22.0-30.0) sec ABG pH (7.35-7.45) ABG pO2 (83-108) mmHg ABG Total CO2 27 H (19-24) mmol/L ABG O2 Saturation (94-97) % ABG Hematocrit (34.0-46.0) % ABG Sodium (135-146) mmol/L ABG Potassium (3.4-4.5) mmol/L ABG Ionized Calcium (4.5-5.3) mg/dL ABG Glucose (75-99) mg/dL Hemoglobin (13.0-17.5) gm/dL Sodium (137-145) mmol/L Chloride 108 H (98-107) mmol/L Glucose (74-99) mg/dL POC Glucose (mg/dL) (75-99) mg/dL Calcium 7.7 L (8.4-10.2) mg/dL Alkaline Phosphatase 37 L (38-126) U/L Total Protein 5.0 L (6.3-8.2) g/dL Albumin 3.1 L (3.5-5.0) g/dL Arterial Blood Potassium (3.4-4.5) mmol/L Arterial Blood Glucose (75-99) mg/dL 06/24/17 06/24/17 06/24/17 Range/Units 15:15 16:10 16:58 WBC (3.8-10.6) k/uL RBC (4.30-5.90) m/uL Hgb (13.0-17.5) gm/dL Hct (39.0-53.0) % Plt Count (150-450) k/uL Neutrophils # (1.3-7.7) k/uL Lymphocytes # (1.0-4.8) k/uL PT (9.0-12.0) sec INR 1.2 H (<1.2) APTT 31.1 H (22.0-30.0) sec ABG pH (7.35-7.45) ABG pO2 (83-108) mmHg ABG Total CO2 (19-24) mmol/L ABG O2 Saturation (94-97) % ABG Hematocrit (34.0-46.0) % ABG Sodium (135-146) mmol/L ABG Potassium (3.4-4.5) mmol/L ABG Ionized Calcium (4.5-5.3) mg/dL ABG Glucose (75-99) mg/dL Hemoglobin (13.0-17.5) gm/dL Sodium (137-145) mmol/L Chloride (98-107) mmol/L Glucose (74-99) mg/dL POC Glucose (mg/dL) 120 H 116 H (75-99) mg/dL Calcium (8.4-10.2) mg/dL Alkaline Phosphatase (38-126) U/L Total Protein (6.3-8.2) g/dL Albumin (3.5-5.0) g/dL Arterial Blood Potassium (3.4-4.5) mmol/L Arterial Blood Glucose (75-99) mg/dL 06/24/1718 06/24/17 Range/Units 16:58 16:58 17:00 WBC (3.8-10.6) k/uL RBC 3.49 L (4.30-5.90) m/uL Hgb 11.3 L (13.0-17.5) gm/dL Hct 32.5 L (39.0-53.0) % Plt Count 122 L (150-450) k/uL Neutrophils # 8.5 H (1.3-7.7) k/uL Lymphocytes # 0.7 L (1.0-4.8) k/uL PT (9.0-12.0) sec INR (<1.2) APTT (22.0-30.0) sec ABG pH (7.35-7.45) ABG pO2 (83-108) mmHg ABG Total CO2 (19-24) mmol/L ABG O2 Saturation (94-97) % ABG Hematocrit (34.0-46.0) % ABG Sodium (135-146) mmol/L ABG Potassium (3.4-4.5) mmol/L ABG Ionized Calcium (4.5-5.3) mg/dL ABG Glucose (75-99) mg/dL Hemoglobin (13.0-17.5) gm/dL Sodium (137-145) mmol/L Chloride (98-107) mmol/L Glucose 138 H (74-99) mg/dL POC Glucose (mg/dL) 142 H (75-99) mg/dL Calcium 8.3 L (8.4-10.2) mg/dL Alkaline Phosphatase (38-126) U/L Total Protein (6.3-8.2) g/dL Albumin (3.5-5.0) g/dL Arterial Blood Potassium (3.4-4.5) mmol/L Arterial Blood Glucose (75-99) mg/dL 06/24/17 06/24/17 06/24/17 Range/Units 17:59 19:05 19:23 WBC (3.8-10.6) k/uL RBC (4.30-5.90) m/uL Hgb (13.0-17.5) gm/dL Hct (39.0-53.0) % Plt Count (150-450) k/uL Neutrophils # (1.3-7.7) k/uL Lymphocytes # (1.0-4.8) k/uL PT (9.0-12.0) sec INR (<1.2) APTT (22.0-30.0) sec ABG pH (7.35-7.45) ABG pO2 58 L (83-108) mmHg ABG Total CO2 25 H (19-24) mmol/L ABG O2 Saturation 92.2 L (94-97) % ABG Hematocrit (34.0-46.0) % ABG Sodium (135-146) mmol/L ABG Potassium (3.4-4.5) mmol/L ABG Ionized Calcium (4.5-5.3) mg/dL ABG Glucose (75-99) mg/dL Hemoglobin (13.0-17.5) gm/dL Sodium (137-145) mmol/L Chloride (98-107) mmol/L Glucose (74-99) mg/dL POC Glucose (mg/dL) 138 H 129 H (75-99) mg/dL Calcium (8.4-10.2) mg/dL Alkaline Phosphatase (38-126) U/L Total Protein (6.3-8.2) g/dL Albumin (3.5-5.0) g/dL Arterial Blood Potassium (3.4-4.5) mmol/L Arterial Blood Glucose (75-99) mg/dL 06/24/17 06/24/17 06/24/17 Range/Units 20:11 20:13 20:23 WBC 10.7 H (3.8-10.6) k/uL RBC 3.58 L (4.30-5.90) m/uL Hgb 11.6 L (13.0-17.5) gm/dL Hct 33.1 L (39.0-53.0) % Plt Count 132 L (150-450) k/uL Neutrophils # 9.6 H (1.3-7.7) k/uL Lymphocytes # 0.4 L (1.0-4.8) k/uL PT (9.0-12.0) sec INR (<1.2) APTT (22.0-30.0) sec ABG pH (7.35-7.45) ABG pO2 65 L (83-108) mmHg ABG Total CO2 (19-24) mmol/L ABG O2 Saturation (94-97) % ABG Hematocrit (34.0-46.0) % ABG Sodium (135-146) mmol/L ABG Potassium (3.4-4.5) mmol/L ABG Ionized Calcium (4.5-5.3) mg/dL ABG Glucose (75-99) mg/dL Hemoglobin (13.0-17.5) gm/dL Sodium (137-145) mmol/L Chloride (98-107) mmol/L Glucose (74-99) mg/dL POC Glucose (mg/dL) 150 H (75-99) mg/dL Calcium (8.4-10.2) mg/dL Alkaline Phosphatase (38-126) U/L Total Protein (6.3-8.2) g/dL Albumin (3.5-5.0) g/dL Arterial Blood Potassium (3.4-4.5) mmol/L Arterial Blood Glucose (75-99) mg/dL 06/24/17 06/24/17 06/24/17 Range/Units 20:23 20:23 21:06 WBC (3.8-10.6) k/uL RBC (4.30-5.90) m/uL Hgb (13.0-17.5) gm/dL Hct (39.0-53.0) % Plt Count (150-450) k/uL Neutrophils # (1.3-7.7) k/uL Lymphocytes # (1.0-4.8) k/uL PT (9.0-12.0) sec INR 1.3 H (<1.2) APTT (22.0-30.0) sec ABG pH (7.35-7.45) ABG pO2 (83-108) mmHg ABG Total CO2 (19-24) mmol/L ABG O2 Saturation (94-97) % ABG Hematocrit (34.0-46.0) % ABG Sodium (135-146) mmol/L ABG Potassium (3.4-4.5) mmol/L ABG Ionized Calcium (4.5-5.3) mg/dL ABG Glucose (75-99) mg/dL Hemoglobin (13.0-17.5) gm/dL Sodium (137-145) mmol/L Chloride (98-107) mmol/L Glucose 145 H (74-99) mg/dL POC Glucose (mg/dL) 150 H (75-99) mg/dL Calcium (8.4-10.2) mg/dL Alkaline Phosphatase (38-126) U/L Total Protein (6.3-8.2) g/dL Albumin (3.5-5.0) g/dL Arterial Blood Potassium (3.4-4.5) mmol/L Arterial Blood Glucose (75-99) mg/dL 06/24/17 06/24/17 06/25/17 Range/Units 22:00 23:07 00:12 WBC (3.8-10.6) k/uL RBC (4.30-5.90) m/uL Hgb (13.0-17.5) gm/dL Hct (39.0-53.0) % Plt Count (150-450) k/uL Neutrophils # (1.3-7.7) k/uL Lymphocytes # (1.0-4.8) k/uL PT (9.0-12.0) sec INR (<1.2) APTT (22.0-30.0) sec ABG pH (7.35-7.45) ABG pO2 (83-108) mmHg ABG Total CO2 (19-24) mmol/L ABG O2 Saturation (94-97) % ABG Hematocrit (34.0-46.0) % ABG Sodium (135-146) mmol/L ABG Potassium (3.4-4.5) mmol/L ABG Ionized Calcium (4.5-5.3) mg/dL ABG Glucose (75-99) mg/dL Hemoglobin (13.0-17.5) gm/dL Sodium (137-145) mmol/L Chloride (98-107) mmol/L Glucose (74-99) mg/dL POC Glucose (mg/dL) 139 H 121 H 115 H (75-99) mg/dL Calcium (8.4-10.2) mg/dL Alkaline Phosphatase (38-126) U/L Total Protein (6.3-8.2) g/dL Albumin (3.5-5.0) g/dL Arterial Blood Potassium (3.4-4.5) mmol/L Arterial Blood Glucose (75-99) mg/dL 06/25/17 06/25/17 06/25/17 Range/Units 01:07 02:03 03:07 WBC (3.8-10.6) k/uL RBC (4.30-5.90) m/uL Hgb (13.0-17.5) gm/dL Hct (39.0-53.0) % Plt Count (150-450) k/uL Neutrophils # (1.3-7.7) k/uL Lymphocytes # (1.0-4.8) k/uL PT (9.0-12.0) sec INR (<1.2) APTT (22.0-30.0) sec ABG pH (7.35-7.45) ABG pO2 (83-108) mmHg ABG Total CO2 (19-24) mmol/L ABG O2 Saturation (94-97) % ABG Hematocrit (34.0-46.0) % ABG Sodium (135-146) mmol/L ABG Potassium (3.4-4.5) mmol/L ABG Ionized Calcium (4.5-5.3) mg/dL ABG Glucose (75-99) mg/dL Hemoglobin (13.0-17.5) gm/dL Sodium (137-145) mmol/L Chloride (98-107) mmol/L Glucose (74-99) mg/dL POC Glucose (mg/dL) 106 H 113 H 119 H (75-99) mg/dL Calcium (8.4-10.2) mg/dL Alkaline Phosphatase (38-126) U/L Total Protein (6.3-8.2) g/dL Albumin (3.5-5.0) g/dL Arterial Blood Potassium (3.4-4.5) mmol/L Arterial Blood Glucose (75-99) mg/dL 06/25/17 06/25/17 06/25/17 Range/Units 04:24 04:24 04:24 WBC 11.3 H (3.8-10.6) k/uL RBC 3.43 L (4.30-5.90) m/uL Hgb 10.9 L (13.0-17.5) gm/dL Hct 31.7 L (39.0-53.0) % Plt Count 139 L (150-450) k/uL Neutrophils # 9.5 H (1.3-7.7) k/uL Lymphocytes # 0.9 L (1.0-4.8) k/uL PT 12.2 H (9.0-12.0) sec INR 1.3 H (<1.2) APTT (22.0-30.0) sec ABG pH (7.35-7.45) ABG pO2 (83-108) mmHg ABG Total CO2 (19-24) mmol/L ABG O2 Saturation (94-97) % ABG Hematocrit (34.0-46.0) % ABG Sodium (135-146) mmol/L ABG Potassium (3.4-4.5) mmol/L ABG Ionized Calcium (4.5-5.3) mg/dL ABG Glucose (75-99) mg/dL Hemoglobin (13.0-17.5) gm/dL Sodium 136 L (137-145) mmol/L Chloride (98-107) mmol/L Glucose 117 H (74-99) mg/dL POC Glucose (mg/dL) (75-99) mg/dL Calcium 8.3 L (8.4-10.2) mg/dL Alkaline Phosphatase (38-126) U/L Total Protein 5.5 L (6.3-8.2) g/dL Albumin 3.4 L (3.5-5.0) g/dL Arterial Blood Potassium (3.4-4.5) mmol/L Arterial Blood Glucose (75-99) mg/dL 06/25/17 06/25/17 06/25/17 Range/Units 04:26 06:17 07:13 WBC (3.8-10.6) k/uL RBC (4.30-5.90) m/uL Hgb (13.0-17.5) gm/dL Hct (39.0-53.0) % Plt Count (150-450) k/uL Neutrophils # (1.3-7.7) k/uL Lymphocytes # (1.0-4.8) k/uL PT (9.0-12.0) sec INR (<1.2) APTT (22.0-30.0) sec ABG pH (7.35-7.45) ABG pO2 (83-108) mmHg ABG Total CO2 (19-24) mmol/L ABG O2 Saturation (94-97) % ABG Hematocrit (34.0-46.0) % ABG Sodium (135-146) mmol/L ABG Potassium (3.4-4.5) mmol/L ABG Ionized Calcium (4.5-5.3) mg/dL ABG Glucose (75-99) mg/dL Hemoglobin (13.0-17.5) gm/dL Sodium (137-145) mmol/L Chloride (98-107) mmol/L Glucose (74-99) mg/dL POC Glucose (mg/dL) 114 H 118 H 121 H (75-99) mg/dL Calcium (8.4-10.2) mg/dL Alkaline Phosphatase (38-126) U/L Total Protein (6.3-8.2) g/dL Albumin (3.5-5.0) g/dL Arterial Blood Potassium (3.4-4.5) mmol/L Arterial Blood Glucose (75-99) mg/dL 06/25/17 06/25/17 06/25/17 Range/Units 08:26 09:20 10:04 WBC (3.8-10.6) k/uL RBC (4.30-5.90) m/uL Hgb (13.0-17.5) gm/dL Hct (39.0-53.0) % Plt Count (150-450) k/uL Neutrophils # (1.3-7.7) k/uL Lymphocytes # (1.0-4.8) k/uL PT (9.0-12.0) sec INR (<1.2) APTT (22.0-30.0) sec ABG pH (7.35-7.45) ABG pO2 (83-108) mmHg ABG Total CO2 (19-24) mmol/L ABG O2 Saturation (94-97) % ABG Hematocrit (34.0-46.0) % ABG Sodium (135-146) mmol/L ABG Potassium (3.4-4.5) mmol/L ABG Ionized Calcium (4.5-5.3) mg/dL ABG Glucose (75-99) mg/dL Hemoglobin (13.0-17.5) gm/dL Sodium (137-145) mmol/L Chloride (98-107) mmol/L Glucose (74-99) mg/dL POC Glucose (mg/dL) 118 H 115 H 114 H (75-99) mg/dL Calcium (8.4-10.2) mg/dL Alkaline Phosphatase (38-126) U/L Total Protein (6.3-8.2) g/dL Albumin (3.5-5.0) g/dL Arterial Blood Potassium (3.4-4.5) mmol/L Arterial Blood Glucose (75-99) mg/dL Microbiology - Last 24 Hours (Table) 06/24/17 15:12 Gram Stain - Preliminary Bronchial Washings - Left Bronchial Washings Culture - Preliminary Assessment and Plan Assessment: 1. Coronary artery disease status post CABG . 2. Right upper lobe collapse status post bronchoscopy and mucous plug suctioning with complete resolution. 3. VDRF status post extubation. 4. Hypertension. 5. Macular degeneration bilaterally. 6. Hyperlipidemia. 7. Acute blood loss anemia. Stable. 8. Hyperglycemia. Off insulin drip. We will continue supportive care follow-up with cardiothoracic surgery recommendation. We will switch patient from insulin drip to insulin sliding scale introduce diet and encouraged hydration. Plan discussed with the patient and his at the bedside who are agreeable to the current treatment plan and we would consider removing Hall catheter and chest tube per cardiothoracic surgery recommendation. We'll monitor his vital signs closely and repeat blood work in the morning. Will consider physical and neck patient no therapy once approved by the primary team. We will continue wound care
[2017-06-25] MEDS ORDERED: HYDROcodone/APAP 5-325MG 1 EACH TAB PO PRN (12:25)
[2017-06-25] MEDS ORDERED: BISACODYL 10 MG SUPP RECTAL PRN (12:26)
[2017-06-25] MEDS ORDERED: MAGNESIUM HYDROXIDE 2,400 MG/10 ML CUP PO PRN (12:26)
[2017-06-25] MEDS ORDERED: METOPROLOL TARTRATE 12.5 MG TAB PO STA (12:28)
[2017-06-25 12:52] LABS: Glucose,Whole Blood 110 mg/dL (75-99)
[2017-06-25] MEDS: INSULIN ASPART 100 UNIT/ML 1 ML 10 ML VIAL SQ SCH ×3 (12:53→20:33)
--- NOTE | 2017-06-25 13:06 | P.PN ---
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 Patient is a lifelong nonsmoker, has been complaining recently of substernal chest discomfort and radiation to his arms especially the left arm upon shoveling snow. Symptoms disappeared with rest. Hence the patient had a recent stress test on outpatient basis at [facility], and it was suggestive of ischemic changes. Hence the patient saw Dr. Rodriguez today, and he underwent cardiac catheterization. It showed critical ostial LAD stenosis and a long segment with normal LV function. Hence the patient was advised to undergo emergent coronary artery bypass grafting to the LAD. Considering plans for possible CABG, I was asked to see him on consultation for preoperative pulmonary clearance. Again the patient does not smoke, does not have any symptoms to suggest any underlying pulmonary disease. Denies any cough no wheezing no shortness of breath. Denies any headaches, no blurred vision, no dizziness. No nausea no vomiting no abdominal pain no melena no hematemesis no dysuria and no frequency no urgency. Patient is usually very active physically. Again he does not smoke, drinks a glass or 2 glasses of wine on a regular daily basis. Patient denies any specific occupational exposure. Chest x-ray done portable this morning is relatively normal. No evidence of active pulmonary disease. The patient is seen again today 06/24/2017 immediately postoperative in the intensive care unit. The patient had undergone a COUCH to the mid LAD and a saphenous vein graft to the diagonal branch. He is returned on the mechanical ventilator at SIMV mode at a rate of 12, tidal volume 600, FiO2 100% and a PEEP of 5. Arterial blood gases reveal a pO2 of 83, pCO2 45, pH 7.36. He is sedated on propofol currently at 50 mcg/kg/m., Clevidipine at 20 mg per hour, nitroglycerin at 5 mcg/m, lactated Ringer's at 50 MLS per hour. Cardiac output 7.9, cardiac index 3.6, current blood pressure 140/50, PA pressure 39/20 with a mean of 29, CVP 13. Chest x-ray reveals evidence of a right upper lobe collapse. Split mediastinal and left pleural chest tubes are in place and endotracheal tube in good position. Bronchoscopy will be performed. Bronchodilators every 4 hours. Cefazolin every 8 hours. Reevaluated today on 06/25/2017, patient is doing well, he was extubated last night uneventfully, presently on nasal cannula, in no form of respiratory distress, relatively asymptomatic except for aches and pains and feeling generally weak. CBC is relatively unremarkable hemoglobin is 10.9. WBC count is 11.3. Basic metabolic profile and renal profile are normal. Chest x-ray showed mostly postoperative changes, and full expansion of the right upper lobe. Small tiny left pleural effusion is noted. Objective - Vital Signs Vital signs: Vital Signs Temp 99.5 F 06/25/17 04:00 Pulse 79 06/25/17 11:23 Resp 18 06/25/17 11:00 BP 110/65 06/25/17 11:00 Pulse Ox 96 06/25/17 08:30 Intake & Output 06/24/17 06/25/17 06/25/17 18:59 06:59 18:59 Intake Total 837.473 9252.488 322 Output Total 3471 1371 357 Balance -2777.429 -208.512 -35 Weight 97.3 kg 97.3 kg Intake: IV 489 782 322 CI/CO 120 110 30 Lactated Ringers 1,000 ml 300 600 250 @ 20 mls/hr IV .Q24H [facility]UL Rx#:[id number] pressure bag 36 72 42 Intake, IV Titration 204.571 380.488 0 Amount Clevidipine Butyrate 25 102.234 179.500 mg In Empty Bag 1 bag @ 1 MG/HR 2 mls/hr IV .Q24H [facility]UL Rx#:[id number] Esmolol in Sodium 183.646 Chloride Pmx 2.5 gm In Saline 1 250ml.bag @ 50 MCG/KG/MIN 29.19 mls/hr IV .Q8H34M [facility] Rx#: [id number] Insulin Regular 100 unit 2.284 16.142 0 In Sodium Chloride 0.9% 100 ml @ Per Protocol IV .Q0M [facility] Rx#:[id number] Nitroglycerin-D5w Pmx 50 0.825 mg In Dextrose/Water 1 250ml.bag @ 5 MCG/MIN 1.5 mls/hr IV .Q24H [facility]UL Rx#: [id number] Propofol 1,000 mg In 99.228 1.2 Empty Bag 1 bag @ Titrate IV .Q0M [facility] Rx#: [id number] Output: Chest Tube Drainage 241 306 123 Chest Tube Left Pleural 89 107 48 Chest Tube Mediastinal 152 199 75 Drainage 25 5 Left Calf 25 5 Urine 2004 1060 234 Estimated Blood Loss 1200 Other: Voiding Method Indwelling Catheter Indwelling Catheter Indwelling Catheter ABP, PAP, CO, CI - Last Documented Arterial Blood Pressure 148/63 Pulmonary Artery Pressure 33/16 Cardiac Output 6.7 Cardiac Index 3.0 - Exam GENERAL EXAM: Revealed a 72-year-old white male, pleasant, in no distress. On nasal cannula. HEAD: Normocephalic. EYES: PERRLA, EOMI, no icterus. NOSE: Clear with pink turbinates. THROAT: Moist mucous membranes, throat is clear.. NECK: Right [place] catheter in place. No masses, no JVD. CHEST: Sternal dressing dry and intact. Split mediastinal and left pleural chest tubes in place.. LUNGS: Equal air entry nourished breath sounds at the bases, no crackles or rhonchi or wheezes. CVS: S1 and S2 normal with no audible murmur, regular rhythm. Positive pericardial rub ABDOMEN: No hepatosplenomegaly, hypoactive bowel sounds, no guarding or rigidity. SPINE: No scoliosis or deformity SKIN: No rashes CENTRAL NERVOUS SYSTEM: No gross focal neurologic deficit EXTREMITIES: No clubbing, edema or cyanosis. - Labs CBC & Chem 7: 06/25/17 04:24 06/25/17 04:24 Labs: Abnormal Lab Results - Last 24 Hours (Table) 06/24/17 06/24/17 06/24/17 Range/Units 08:37 10:47 11:14 WBC (3.8-10.6) k/uL RBC (4.30-5.90) m/uL Hgb (13.0-17.5) gm/dL Hct (39.0-53.0) % Plt Count (150-450) k/uL Neutrophils # (1.3-7.7) k/uL Lymphocytes # (1.0-4.8) k/uL PT (9.0-12.0) sec INR (<1.2) APTT (22.0-30.0) sec ABG pH 7.34 L (7.35-7.45) ABG pO2 304 H 227 H 318 H (83-108) mmHg ABG Total CO2 26 H 25 H (19-24) mmol/L ABG O2 Saturation 100.0 H 99.8 H 100.0 H (94-97) % ABG Hematocrit 30 L 29 L (34.0-46.0) % ABG Sodium 133 L 134 L (135-146) mmol/L ABG Potassium 4.7 H 5.1 H 5.2 H (3.4-4.5) mmol/L ABG Ionized Calcium 4.3 L 4.3 L (4.5-5.3) mg/dL ABG Glucose 112 H 173 H 170 H (75-99) mg/dL Hemoglobin 9.9 L 9.4 L (13.0-17.5) gm/dL Sodium (137-145) mmol/L Chloride (98-107) mmol/L Glucose (74-99) mg/dL POC Glucose (mg/dL) (75-99) mg/dL Calcium (8.4-10.2) mg/dL Alkaline Phosphatase (38-126) U/L Total Protein (6.3-8.2) g/dL Albumin (3.5-5.0) g/dL Arterial Blood Potassium 4.7 H 5.1 H 5.2 H (3.4-4.5) mmol/L Arterial Blood Glucose 112 H 173 H 170 H (75-99) mg/dL 06/24/17 06/24/17 06/24/17 Range/Units 12:18 13:26 13:30 WBC (3.8-10.6) k/uL RBC 2.93 L (4.30-5.90) m/uL Hgb 9.2 L D (13.0-17.5) gm/dL Hct 27.5 L (39.0-53.0) % Plt Count 107 L D (150-450) k/uL Neutrophils # (1.3-7.7) k/uL Lymphocytes # 0.7 L (1.0-4.8) k/uL PT (9.0-12.0) sec INR (<1.2) APTT (22.0-30.0) sec ABG pH (7.35-7.45) ABG pO2 145 H (83-108) mmHg ABG Total CO2 26 H (19-24) mmol/L ABG O2 Saturation 99.4 H (94-97) % ABG Hematocrit 32 L (34.0-46.0) % ABG Sodium (135-146) mmol/L ABG Potassium (3.4-4.5) mmol/L ABG Ionized Calcium 4.3 L (4.5-5.3) mg/dL ABG Glucose 140 H (75-99) mg/dL Hemoglobin 10.6 L (13.0-17.5) gm/dL Sodium (137-145) mmol/L Chloride (98-107) mmol/L Glucose (74-99) mg/dL POC Glucose (mg/dL) 104 H (75-99) mg/dL Calcium (8.4-10.2) mg/dL Alkaline Phosphatase (38-126) U/L Total Protein (6.3-8.2) g/dL Albumin (3.5-5.0) g/dL Arterial Blood Potassium (3.4-4.5) mmol/L Arterial Blood Glucose 140 H (75-99) mg/dL 06/24/17 06/24/17 06/24/17 Range/Units 13:30 13:30 13:58 WBC (3.8-10.6) k/uL RBC (4.30-5.90) m/uL Hgb (13.0-17.5) gm/dL Hct (39.0-53.0) % Plt Count (150-450) k/uL Neutrophils # (1.3-7.7) k/uL Lymphocytes # (1.0-4.8) k/uL PT 12.9 H (9.0-12.0) sec INR 1.4 H (<1.2) APTT 32.0 H (22.0-30.0) sec ABG pH (7.35-7.45) ABG pO2 (83-108) mmHg ABG Total CO2 27 H (19-24) mmol/L ABG O2 Saturation (94-97) % ABG Hematocrit (34.0-46.0) % ABG Sodium (135-146) mmol/L ABG Potassium (3.4-4.5) mmol/L ABG Ionized Calcium (4.5-5.3) mg/dL ABG Glucose (75-99) mg/dL Hemoglobin (13.0-17.5) gm/dL Sodium (137-145) mmol/L Chloride 108 H (98-107) mmol/L Glucose (74-99) mg/dL POC Glucose (mg/dL) (75-99) mg/dL Calcium 7.7 L (8.4-10.2) mg/dL Alkaline Phosphatase 37 L (38-126) U/L Total Protein 5.0 L (6.3-8.2) g/dL Albumin 3.1 L (3.5-5.0) g/dL Arterial Blood Potassium (3.4-4.5) mmol/L Arterial Blood Glucose (75-99) mg/dL 06/24/17 06/24/17 06/24/17 Range/Units 15:15 16:10 16:58 WBC (3.8-10.6) k/uL RBC (4.30-5.90) m/uL Hgb (13.0-17.5) gm/dL Hct (39.0-53.0) % Plt Count (150-450) k/uL Neutrophils # (1.3-7.7) k/uL Lymphocytes # (1.0-4.8) k/uL PT (9.0-12.0) sec INR 1.2 H (<1.2) APTT 31.1 H (22.0-30.0) sec ABG pH (7.35-7.45) ABG pO2 (83-108) mmHg ABG Total CO2 (19-24) mmol/L ABG O2 Saturation (94-97) % ABG Hematocrit (34.0-46.0) % ABG Sodium (135-146) mmol/L ABG Potassium (3.4-4.5) mmol/L ABG Ionized Calcium (4.5-5.3) mg/dL ABG Glucose (75-99) mg/dL Hemoglobin (13.0-17.5) gm/dL Sodium (137-145) mmol/L Chloride (98-107) mmol/L Glucose (74-99) mg/dL POC Glucose (mg/dL) 120 H 116 H (75-99) mg/dL Calcium (8.4-10.2) mg/dL Alkaline Phosphatase (38-126) U/L Total Protein (6.3-8.2) g/dL Albumin (3.5-5.0) g/dL Arterial Blood Potassium (3.4-4.5) mmol/L Arterial Blood Glucose (75-99) mg/dL 06/24/17 06/24/17 06/24/17 Range/Units 16:58 16:58 17:00 WBC (3.8-10.6) k/uL RBC 3.49 L (4.30-5.90) m/uL Hgb 11.3 L (13.0-17.5) gm/dL Hct 32.5 L (39.0-53.0) % Plt Count 122 L (150-450) k/uL Neutrophils # 8.5 H (1.3-7.7) k/uL Lymphocytes # 0.7 L (1.0-4.8) k/uL PT (9.0-12.0) sec INR (<1.2) APTT (22.0-30.0) sec ABG pH (7.35-7.45) ABG pO2 (83-108) mmHg ABG Total CO2 (19-24) mmol/L ABG O2 Saturation (94-97) % ABG Hematocrit (34.0-46.0) % ABG Sodium (135-146) mmol/L ABG Potassium (3.4-4.5) mmol/L ABG Ionized Calcium (4.5-5.3) mg/dL ABG Glucose (75-99) mg/dL Hemoglobin (13.0-17.5) gm/dL Sodium (137-145) mmol/L Chloride (98-107) mmol/L Glucose 138 H (74-99) mg/dL POC Glucose (mg/dL) 142 H (75-99) mg/dL Calcium 8.3 L (8.4-10.2) mg/dL Alkaline Phosphatase (38-126) U/L Total Protein (6.3-8.2) g/dL Albumin (3.5-5.0) g/dL Arterial Blood Potassium (3.4-4.5) mmol/L Arterial Blood Glucose (75-99) mg/dL 06/24/17 06/24/17 06/24/17 Range/Units 17:59 19:05 19:23 WBC (3.8-10.6) k/uL RBC (4.30-5.90) m/uL Hgb (13.0-17.5) gm/dL Hct (39.0-53.0) % Plt Count (150-450) k/uL Neutrophils # (1.3-7.7) k/uL Lymphocytes # (1.0-4.8) k/uL PT (9.0-12.0) sec INR (<1.2) APTT (22.0-30.0) sec ABG pH (7.35-7.45) ABG pO2 58 L (83-108) mmHg ABG Total CO2 25 H (19-24) mmol/L ABG O2 Saturation 92.2 L (94-97) % ABG Hematocrit (34.0-46.0) % ABG Sodium (135-146) mmol/L ABG Potassium (3.4-4.5) mmol/L ABG Ionized Calcium (4.5-5.3) mg/dL ABG Glucose (75-99) mg/dL Hemoglobin (13.0-17.5) gm/dL Sodium (137-145) mmol/L Chloride (98-107) mmol/L Glucose (74-99) mg/dL POC Glucose (mg/dL) 138 H 129 H (75-99) mg/dL Calcium (8.4-10.2) mg/dL Alkaline Phosphatase (38-126) U/L Total Protein (6.3-8.2) g/dL Albumin (3.5-5.0) g/dL Arterial Blood Potassium (3.4-4.5) mmol/L Arterial Blood Glucose (75-99) mg/dL 06/24/17 06/24/17 06/24/17 Range/Units 20:11 20:13 20:23 WBC 10.7 H (3.8-10.6) k/uL RBC 3.58 L (4.30-5.90) m/uL Hgb 11.6 L (13.0-17.5) gm/dL Hct 33.1 L (39.0-53.0) % Plt Count 132 L (150-450) k/uL Neutrophils # 9.6 H (1.3-7.7) k/uL Lymphocytes # 0.4 L (1.0-4.8) k/uL PT (9.0-12.0) sec INR (<1.2) APTT (22.0-30.0) sec ABG pH (7.35-7.45) ABG pO2 65 L (83-108) mmHg ABG Total CO2 (19-24) mmol/L ABG O2 Saturation (94-97) % ABG Hematocrit (34.0-46.0) % ABG Sodium (135-146) mmol/L ABG Potassium (3.4-4.5) mmol/L ABG Ionized Calcium (4.5-5.3) mg/dL ABG Glucose (75-99) mg/dL Hemoglobin (13.0-17.5) gm/dL Sodium (137-145) mmol/L Chloride (98-107) mmol/L Glucose (74-99) mg/dL POC Glucose (mg/dL) 150 H (75-99) mg/dL Calcium (8.4-10.2) mg/dL Alkaline Phosphatase (38-126) U/L Total Protein (6.3-8.2) g/dL Albumin (3.5-5.0) g/dL Arterial Blood Potassium (3.4-4.5) mmol/L Arterial Blood Glucose (75-99) mg/dL 06/24/17 06/24/17 06/24/17 Range/Units 20:23 20:23 21:06 WBC (3.8-10.6) k/uL RBC (4.30-5.90) m/uL Hgb (13.0-17.5) gm/dL Hct (39.0-53.0) % Plt Count (150-450) k/uL Neutrophils # (1.3-7.7) k/uL Lymphocytes # (1.0-4.8) k/uL PT (9.0-12.0) sec INR 1.3 H (<1.2) APTT (22.0-30.0) sec ABG pH (7.35-7.45) ABG pO2 (83-108) mmHg ABG Total CO2 (19-24) mmol/L ABG O2 Saturation (94-97) % ABG Hematocrit (34.0-46.0) % ABG Sodium (135-146) mmol/L ABG Potassium (3.4-4.5) mmol/L ABG Ionized Calcium (4.5-5.3) mg/dL ABG Glucose (75-99) mg/dL Hemoglobin (13.0-17.5) gm/dL Sodium (137-145) mmol/L Chloride (98-107) mmol/L Glucose 145 H (74-99) mg/dL POC Glucose (mg/dL) 150 H (75-99) mg/dL Calcium (8.4-10.2) mg/dL Alkaline Phosphatase (38-126) U/L Total Protein (6.3-8.2) g/dL Albumin (3.5-5.0) g/dL Arterial Blood Potassium (3.4-4.5) mmol/L Arterial Blood Glucose (75-99) mg/dL 06/24/17 06/24/17 06/25/17 Range/Units 22:00 23:07 00:12 WBC (3.8-10.6) k/uL RBC (4.30-5.90) m/uL Hgb (13.0-17.5) gm/dL Hct (39.0-53.0) % Plt Count (150-450) k/uL Neutrophils # (1.3-7.7) k/uL Lymphocytes # (1.0-4.8) k/uL PT (9.0-12.0) sec INR (<1.2) APTT (22.0-30.0) sec ABG pH (7.35-7.45) ABG pO2 (83-108) mmHg ABG Total CO2 (19-24) mmol/L ABG O2 Saturation (94-97) % ABG Hematocrit (34.0-46.0) % ABG Sodium (135-146) mmol/L ABG Potassium (3.4-4.5) mmol/L ABG Ionized Calcium (4.5-5.3) mg/dL ABG Glucose (75-99) mg/dL Hemoglobin (13.0-17.5) gm/dL Sodium (137-145) mmol/L Chloride (98-107) mmol/L Glucose (74-99) mg/dL POC Glucose (mg/dL) 139 H 121 H 115 H (75-99) mg/dL Calcium (8.4-10.2) mg/dL Alkaline Phosphatase (38-126) U/L Total Protein (6.3-8.2) g/dL Albumin (3.5-5.0) g/dL Arterial Blood Potassium (3.4-4.5) mmol/L Arterial Blood Glucose (75-99) mg/dL 06/25/17 06/25/17 06/25/17 Range/Units 01:07 02:03 03:07 WBC (3.8-10.6) k/uL RBC (4.30-5.90) m/uL Hgb (13.0-17.5) gm/dL Hct (39.0-53.0) % Plt Count (150-450) k/uL Neutrophils # (1.3-7.7) k/uL Lymphocytes # (1.0-4.8) k/uL PT (9.0-12.0) sec INR (<1.2) APTT (22.0-30.0) sec ABG pH (7.35-7.45) ABG pO2 (83-108) mmHg ABG Total CO2 (19-24) mmol/L ABG O2 Saturation (94-97) % ABG Hematocrit (34.0-46.0) % ABG Sodium (135-146) mmol/L ABG Potassium (3.4-4.5) mmol/L ABG Ionized Calcium (4.5-5.3) mg/dL ABG Glucose (75-99) mg/dL Hemoglobin (13.0-17.5) gm/dL Sodium (137-145) mmol/L Chloride (98-107) mmol/L Glucose (74-99) mg/dL POC Glucose (mg/dL) 106 H 113 H 119 H (75-99) mg/dL Calcium (8.4-10.2) mg/dL Alkaline Phosphatase (38-126) U/L Total Protein (6.3-8.2) g/dL Albumin (3.5-5.0) g/dL Arterial Blood Potassium (3.4-4.5) mmol/L Arterial Blood Glucose (75-99) mg/dL 06/25/17 06/25/17 06/25/17 Range/Units 04:24 04:24 04:24 WBC 11.3 H (3.8-10.6) k/uL RBC 3.43 L (4.30-5.90) m/uL Hgb 10.9 L (13.0-17.5) gm/dL Hct 31.7 L (39.0-53.0) % Plt Count 139 L (150-450) k/uL Neutrophils # 9.5 H (1.3-7.7) k/uL Lymphocytes # 0.9 L (1.0-4.8) k/uL PT 12.2 H (9.0-12.0) sec INR 1.3 H (<1.2) APTT (22.0-30.0) sec ABG pH (7.35-7.45) ABG pO2 (83-108) mmHg ABG Total CO2 (19-24) mmol/L ABG O2 Saturation (94-97) % ABG Hematocrit (34.0-46.0) % ABG Sodium (135-146) mmol/L ABG Potassium (3.4-4.5) mmol/L ABG Ionized Calcium (4.5-5.3) mg/dL ABG Glucose (75-99) mg/dL Hemoglobin (13.0-17.5) gm/dL Sodium 136 L (137-145) mmol/L Chloride (98-107) mmol/L Glucose 117 H (74-99) mg/dL POC Glucose (mg/dL) (75-99) mg/dL Calcium 8.3 L (8.4-10.2) mg/dL Alkaline Phosphatase (38-126) U/L Total Protein 5.5 L (6.3-8.2) g/dL Albumin 3.4 L (3.5-5.0) g/dL Arterial Blood Potassium (3.4-4.5) mmol/L Arterial Blood Glucose (75-99) mg/dL 06/25/17 06/25/17 06/25/17 Range/Units 04:26 06:17 07:13 WBC (3.8-10.6) k/uL RBC (4.30-5.90) m/uL Hgb (13.0-17.5) gm/dL Hct (39.0-53.0) % Plt Count (150-450) k/uL Neutrophils # (1.3-7.7) k/uL Lymphocytes # (1.0-4.8) k/uL PT (9.0-12.0) sec INR (<1.2) APTT (22.0-30.0) sec ABG pH (7.35-7.45) ABG pO2 (83-108) mmHg ABG Total CO2 (19-24) mmol/L ABG O2 Saturation (94-97) % ABG Hematocrit (34.0-46.0) % ABG Sodium (135-146) mmol/L ABG Potassium (3.4-4.5) mmol/L ABG Ionized Calcium (4.5-5.3) mg/dL ABG Glucose (75-99) mg/dL Hemoglobin (13.0-17.5) gm/dL Sodium (137-145) mmol/L Chloride (98-107) mmol/L Glucose (74-99) mg/dL POC Glucose (mg/dL) 114 H 118 H 121 H (75-99) mg/dL Calcium (8.4-10.2) mg/dL Alkaline Phosphatase (38-126) U/L Total Protein (6.3-8.2) g/dL Albumin (3.5-5.0) g/dL Arterial Blood Potassium (3.4-4.5) mmol/L Arterial Blood Glucose (75-99) mg/dL 06/25/17 06/25/17 06/25/17 Range/Units 08:26 09:20 10:04 WBC (3.8-10.6) k/uL RBC (4.30-5.90) m/uL Hgb (13.0-17.5) gm/dL Hct (39.0-53.0) % Plt Count (150-450) k/uL Neutrophils # (1.3-7.7) k/uL Lymphocytes # (1.0-4.8) k/uL PT (9.0-12.0) sec INR (<1.2) APTT (22.0-30.0) sec ABG pH (7.35-7.45) ABG pO2 (83-108) mmHg ABG Total CO2 (19-24) mmol/L ABG O2 Saturation (94-97) % ABG Hematocrit (34.0-46.0) % ABG Sodium (135-146) mmol/L ABG Potassium (3.4-4.5) mmol/L ABG Ionized Calcium (4.5-5.3) mg/dL ABG Glucose (75-99) mg/dL Hemoglobin (13.0-17.5) gm/dL Sodium (137-145) mmol/L Chloride (98-107) mmol/L Glucose (74-99) mg/dL POC Glucose (mg/dL) 118 H 115 H 114 H (75-99) mg/dL Calcium (8.4-10.2) mg/dL Alkaline Phosphatase (38-126) U/L Total Protein (6.3-8.2) g/dL Albumin (3.5-5.0) g/dL Arterial Blood Potassium (3.4-4.5) mmol/L Arterial Blood Glucose (75-99) mg/dL 06/25/17 Range/Units 12:50 WBC (3.8-10.6) k/uL RBC (4.30-5.90) m/uL Hgb (13.0-17.5) gm/dL Hct (39.0-53.0) % Plt Count (150-450) k/uL Neutrophils # (1.3-7.7) k/uL Lymphocytes # (1.0-4.8) k/uL PT (9.0-12.0) sec INR (<1.2) APTT (22.0-30.0) sec ABG pH (7.35-7.45) ABG pO2 (83-108) mmHg ABG Total CO2 (19-24) mmol/L ABG O2 Saturation (94-97) % ABG Hematocrit (34.0-46.0) % ABG Sodium (135-146) mmol/L ABG Potassium (3.4-4.5) mmol/L ABG Ionized Calcium (4.5-5.3) mg/dL ABG Glucose (75-99) mg/dL Hemoglobin (13.0-17.5) gm/dL Sodium (137-145) mmol/L Chloride (98-107) mmol/L Glucose (74-99) mg/dL POC Glucose (mg/dL) 110 H (75-99) mg/dL Calcium (8.4-10.2) mg/dL Alkaline Phosphatase (38-126) U/L Total Protein (6.3-8.2) g/dL Albumin (3.5-5.0) g/dL Arterial Blood Potassium (3.4-4.5) mmol/L Arterial Blood Glucose (75-99) mg/dL Microbiology - Last 24 Hours (Table) 06/24/17 15:12 Gram Stain - Preliminary Bronchial Washings - Left Bronchial Washings Culture - Preliminary Assessment and Plan Assessment: Impression: 1 new-onset angina with severely abnormal stress echocardiogram and abnormal cardiac catheterization showing a critical ostial LAD stenosis and a long segment with normal left ventricular size and systolic function. 2 history of GERD without esophagitis. 3 status post CABG, postoperative day #1 4 status post bronchoscopy for unexpected but potential right upper lobe collapse secondary to mucus plugging post CABG., Postoperative day #1. With complete reexpansion of the right upper lobe. Recommendation: Continue present supportive care measures, continue incentive spirometry, bronchodilators, early ambulation, will follow. Time with Patient: Greater than 30
[2017-06-25] MEDS: ceFAZolin IN SWFI 2 GM/20 ML SYRINGE IVP SCH (13:20)
--- NOTE | 2017-06-25 13:59 | PN ---
PROGRESS NOTE A 72-year-old gentleman who is status post CABG, postop day #1. He is extubated, remains in sinus rhythm. Hemodynamically stable and is free of symptoms this morning. PHYSICAL EXAMINATION: On exam, vital signs is stable. Chest exam reveals diminished air entry at the bases. Heart exam reveals first and second heart sounds. No gallop. Exam of the extremities did not reveal any edema. Peripheral pulses are palpable. The patient is currently on aspirin, Lipitor, Plavix, Lopressor. ASSESSMENT: Coronary artery disease, status post coronary artery bypass grafting, postoperative day #1. Patient is doing well. I encouraged him to do incentive spirometry. MMODL / IJN: [id number] /
--- NOTE | 2017-06-25 14:47 | OP ---
OPERATIVE REPORT DATE OF SURGERY: 06/24/2017 PREOPERATIVE DIAGNOSIS: Coronary artery disease. POSTOPERATIVE DIAGNOSIS: Coronary artery disease. PROCEDURE: 1. Coronary bypass grafting x2 vessels (left internal mammary artery to left anterior descending artery, saphenous vein graft to diagonal artery). 2. Endoscopic vein harvest of greater saphenous vein. 3. Epiaortic ultrasound. 4. Transesophageal echocardiogram. SURGEON: Jose Pacheco MD. AMMONIA OPERATOR: 1. WILMA Celeste. 2. WILMA Bond. ANESTHESIA: General. SPECIMENS: None. COMPLICATIONS: None. INDICATION: The patient is a 72-year-old male who presented to his physician complaining of chest discomfort and bilateral upper extremity pain. Workup including cardiac catheterization revealed a tight long lesion stenosis in the proximal left anterior descending artery, which was not amenable to PCI. Coronary bypass was recommended. The risks, benefits, and alternatives to this procedure were discussed with the patient and his . All questions were answered. Consent was obtained. FINDINGS: The mammary artery was a good conduit with brisk flow. The saphenous vein was a good conduit. The LAD measured 1.5 mm. The diagonal artery measured 1.5 mm. PROCEDURE IN DETAIL: The patient was taken to the operating room and placed supine on the operating table. After induction of general anesthesia, he was prepped and draped in the usual sterile fashion. Preoperative transesophageal echocardiogram revealed a preserved ejection fraction with no significant valvular pathology. A median sternotomy was performed. The left internal mammary artery was harvested in the standard fashion taking care to clip all branches. Intravenous heparin was administered. The vessel was transected distally revealing brisk flow. Simultaneously greater saphenous vein was harvested from the lower extremity. This was performed in the standard endoscopic fashion. All branches were tied. The vein was a good conduit. A pericardial cradle was created. The ascending aorta was palpated. It appeared to be free of significant calcific disease. Epiaortic ultrasound was then performed on the ascending aorta. Again no significant calcific disease was noted. An arterial cannula was placed into the distal ascending aorta. A venous cannula was placed through the right atrial appendage and directed into the IVC. An antegrade catheter was placed as well. The patient was then placed on cardiopulmonary bypass with good decompression of the heart. The aortic cross clamp was applied. Cold blood potassium cardioplegia was delivered in antegrade fashion to achieve arrest of the heart. Of note, cardioplegia was delivered every 15 minutes while the patient remained under cross clamp. We began by inspecting the diagonal artery. It appeared to be amenable for bypass. An arteriotomy was created. This vessel accepted a 1.5 mm probe. Using saphenous vein in a reverse fashion, an end-to-side anastomosis was created. This was performed using running 7-0 Prolene suture. The graft was hemostatic and had great flow. Next , the LAD was identified. It was dissected free. A soft spot amenable for bypass was noted proximally. An arteriotomy was created. This vessel accepted a 1.5 mm probe. Using the left internal mammary artery, an end-to-side anastomosis was created. This was performed in end-to-side fashion using running 8-0 Prolene suture. The graft was hemostatic. The mammary pedicle was then tacked down to the anterior surface of the heart. Attention was then turned to the proximal anastomosis. This was performed in an end-to- side fashion using running 6-0 Prolene suture. Lidocaine and magnesium were administered. The aortic cross clamp was removed. The saphenous vein graft was de- aired in the standard fashion. Distal anastomoses were inspected and appeared to be hemostatic. Temporary atrial and ventricular pacing wires were placed and brought through the skin. The patient was then weaned off cardiopulmonary bypass. He without difficulty. Follow-up transesophageal echocardiogram revealed good function of the left ventricle without significant valvular pathology. Protamine was administered. There were no adverse reactions. The remaining cannulas were removed. Reinforcement sutures were placed as needed. The mediastinum was then copiously irrigated with warm saline solution. Hemostasis was again assured. Soft tissue was reapproximated over the ascending aorta as well as over the apex of the heart. A straight 32-[place] chest tube was placed and directed into the left pleural space. Two additional straight 32-[place] chest tubes were placed and directed into the mediastinum. These were secured to the skin using sutures. The sternum was then reapproximated using stainless steel wires in a figure-of-8 fashion. The remainder of the wound was closed in layers. Sterile dressing was applied. The patient appeared to tolerate the procedure well. There were no immediate complications. He returned to the ICU in critical but stable condition. MMODL / IJN: [id number] / [facility] HOSPITALSteffany
[2017-06-25] MEDS: LACTATED RINGERS 1,000 ML IV SCH (16:48)
[2017-06-25] MEDS: HYDROcodone/APAP 5-325MG 1 EACH TAB PO PRN (16:49)
[2017-06-25 17:09] LABS: Glucose,Whole Blood 111 mg/dL (75-99)
[2017-06-25 20:31] LABS: Glucose,Whole Blood 106 mg/dL (75-99)
[2017-06-25] MEDS: SENNOSIDES-DOCUSATE SODIUM 1 EACH TAB PO SCH ×2 (20:32→20:38)
[2017-06-25] MEDS: METOPROLOL TARTRATE 25 MG TAB PO SCH (20:32)
[2017-06-26] MEDS: KETOROLAC 30 MG/ML 1 ML VIAL IVP SCH ×5 (00:12→23:02)
[2017-06-26] MEDS: HEPARIN SODIUM,PORCINE 5,000 UNIT/ML 1 ML VIAL SQ SCH ×4 (00:12→23:02)
[2017-06-26 05:49] LABS: Basophils % (A) 0 %; Eosinophils # (A) 0.1 k/uL (0-0.7); Eosinophils % (A) 2 %; HCT 30.2 % (39.0-53.0); Lymphocytes # (A) 0.8 k/uL (1.0-4.8); Lymphocytes % (A) 9 %; MCH 31.1 pg (25.0-35.0); MCHC 33.2 g/dL (31.0-37.0); MCV 93.6 fL (80.0-100.0); Mean Platelet Volume 9.1; Monocytes # (A) 0.5 k/uL (0-1.0); Monocytes % (A) 6 %; Neutrophils # (A) 6.7 k/uL (1.3-7.7); Neutrophils % (A) 81 %; Platelet Count 122 k/uL (150-450); RBC 3.23 m/uL (4.30-5.90); WBC 8.2 k/uL (3.8-10.6)
[2017-06-26 05:54] LABS: Ionized Calcium 4.9 mg/dL (4.5-5.3)
[2017-06-26 06:07] LABS: ALT 22 U/L (21-72); AST 24 U/L (17-59); Alkaline Phosphatase 53 U/L (38-126); Anion Gap 8 mmol/L; Blood Urea Nitrogen 12 mg/dL (9-20); Calcium 8.4 mg/dL (8.4-10.2); Carbon Dioxide 25 mmol/L (22-30); Chloride 106 mmol/L (98-107); Glucose 108 mg/dL (74-99); Magnesium 2.2 mg/dL (1.6-2.3); Phosphorus 2.4 mg/dL (2.5-4.5); Potassium 4.4 mmol/L (3.5-5.1); Sodium 139 mmol/L (137-145); Total Bilirubin 0.6 mg/dL (0.2-1.3); Total Protein 5.4 g/dL (6.3-8.2)
--- NOTE | 2017-06-26 06:51 | XR ---
EXAMINATION TYPE: XR chest 1V portable DATE OF EXAM: 06/26/2017 HISTORY: post cardiac surgery. REFERENCE: Previous study dated 06/25/2017. FINDINGS: There has been a midline sternotomy. A left pleural drain remains in place, unchanged in ap pearance. A right internal jugular sheath remains in place. The patient Hinck[place]-Wale catheter is been re moved. There is mild, bibasilar airspace disease. The heart is mildly enlarged. I suspect small effusions. IMPRESSION: CONTINUING POSTOPERATIVE CHANGE.
[2017-06-26 07:24] LABS: Glucose,Whole Blood 126 mg/dL (75-99)
[2017-06-26] MEDS: IPRATROPIUM-ALBUTEROL 3 ML NEB INHALATION SCH ×4 (07:34→20:41)
[2017-06-26] MEDS: ASPIRIN 325 MG TAB PO SCH (08:33)
[2017-06-26] MEDS: INSULIN ASPART 100 UNIT/ML 1 ML 10 ML VIAL SQ SCH ×4 (08:33→21:26)
[2017-06-26] MEDS: ATORVASTATIN 40 MG TAB PO SCH (08:34)
[2017-06-26] MEDS: METOPROLOL TARTRATE 25 MG TAB PO SCH ×2 (08:34→20:07)
[2017-06-26] MEDS: MUPIROCIN 2% OINT 22 GM TUBE NASAL SCH ×2 (08:34→20:07)
[2017-06-26] MEDS: CLOPIDOGREL 75 MG TAB PO SCH (08:34)
[2017-06-26] MEDS: HYDROcodone/APAP 5-325MG 1 EACH TAB PO PRN (08:34)
[2017-06-26] MEDS: PANTOPRAZOLE 40 MG/10 ML VIAL IVP SCH (08:35)
--- NOTE | 2017-06-26 08:48 | P.PN ---
Subjective Progress Note Date: 06/26/17 Principal diagnosis: Coronary artery disease. History of GERD. Family history of premature coronary artery disease. POD #2 urgent coronary artery bypass grafting 2 with the left internal mammary artery to the left anterior descending artery, reverse saphenous vein graft to diagonal artery. Endoscopic vein harvesting of the left greater saphenous vein. Intraoperative transesophageal echocardiogram and epi-aortic scanning. Postoperative complete collapse of the right upper lobe after surgery, an unexpected about potential outcome of surgery. POD #2 bronchoscopy and bronchial alveolar lavage of the right upper lobe with mucous plug suctioning. Patient's currently sitting up in a recliner in no acute distress. Complains of incisional pain, denies shortness of breath. Heart rate slightly elevated this morning but is sinus. Patient has ambulated in the hallway. Objective - Vital Signs Vital signs: Vital Signs Temp 98.8 F 06/26/17 04:00 Pulse 108 H 06/26/17 07:48 Resp 19 06/26/17 07:00 BP 119/63 06/26/17 07:00 Pulse Ox 92 L 06/26/17 07:00 Intake & Output 06/25/17 06/26/17 06/26/17 18:59 06:59 18:59 Intake Total 1455 718 389 Output Total 1516 1495 70 Balance -61 -777 319 Weight 97.3 kg 102 kg Intake: IV 615 468 39 CI/CO 30 Lactated Ringers 1,000 ml 480 360 30 @ 20 mls/hr IV .Q24H [facility] Rx#:[id number] pressure bag 105 108 9 Intake, IV Titration 0 Amount Insulin Regular 100 unit 0 In Sodium Chloride 0.9% 100 ml @ Per Protocol IV .Q0M [facility] Rx#:[id number] Oral 840 250 350 Output: Chest Tube Drainage 283 120 20 Chest Tube Left Pleural 98 30 10 Chest Tube Mediastinal 185 90 10 Drainage 25 Left Calf 25 Urine 1208 1375 50 Other: Voiding Method Indwelling Catheter Indwelling Catheter ABP, PAP, CO, CI - Last Documented Arterial Blood Pressure 121/70 Pulmonary Artery Pressure 21/14 Cardiac Output 6.7 Cardiac Index 3.0 - Constitutional General appearance: Present: cooperative, no acute distress - Respiratory Details: Lungs sounds clear bilaterally. Respirations even, nonlabored. Currently on 2 L nasal cannula with oxygen saturation 92%. Able to achieve 1000 mL on his incentive spirometry. Mediastinal chest tube to continuous wall suction, 80 mL serosanguineous drainage overnight, 300 mL last 24 hours. Left pleural chest tube to continuous wall suction, 30 mL thin serous drainage overnight, 150 ml last 24 hours, no air leaks present. - Cardiovascular Details: S1, S2 present. Tachycardic, regular rate and rhythm, sinus tach on telemetry. Positive rub. A/V epicardial pacemaker wires present, grounded. Sternum stable. Palpable peripheral pulses bilaterally. No edema present. Right internal jugular Cordis, left radial arterial line present. Heart hugger in place with patient demonstrating appropriate use. Antiembolism stockings, SCDs present. - Gastrointestinal Gastrointestinal Comment(s): Abdomen soft, nontender, nondistended. Active bowel sounds 4 quadrants. Tolerating diet. Positive bowel movement. - Genitourinary Genitourinary Comment(s): Hall present draining clear, yellow urine. Output 75-250 mL per hour overnight. - Integumentary Integumentary Comment(s): Skin warm and dry with evidence of good perfusion. Anterior chest incision well approximated and covered with dry intact dressing. Left lower extremity EVH site well approximated, LUIS drain present with no output overnight. - Neurologic Neurologic: Present: CNII-XII intact - Musculoskeletal Musculoskeletal: Present: gait normal, strength equal bilaterally - Psychiatric Psychiatric: Present: A&O x's 3, appropriate affect, intact judgment & insight - Allied health notes Allied health notes reviewed: nursing - Labs CBC & Chem 7: 06/26/17 05:30 06/26/17 05:30 Labs: Abnormal Lab Results - Last 24 Hours (Table) 06/25/17 06/25/17 06/25/17 Range/Units 08:26 09:20 10:04 RBC (4.30-5.90) m/uL Hgb (13.0-17.5) gm/dL Hct (39.0-53.0) % Plt Count (150-450) k/uL Lymphocytes # (1.0-4.8) k/uL Glucose (74-99) mg/dL POC Glucose (mg/dL) 118 H 115 H 114 H (75-99) mg/dL Phosphorus (2.5-4.5) mg/dL Total Protein (6.3-8.2) g/dL Albumin (3.5-5.0) g/dL 06/25/17 06/25/17 06/25/17 Range/Units 12:50 16:56 20:27 RBC (4.30-5.90) m/uL Hgb (13.0-17.5) gm/dL Hct (39.0-53.0) % Plt Count (150-450) k/uL Lymphocytes # (1.0-4.8) k/uL Glucose (74-99) mg/dL POC Glucose (mg/dL) 110 H 111 H 106 H (75-99) mg/dL Phosphorus (2.5-4.5) mg/dL Total Protein (6.3-8.2) g/dL Albumin (3.5-5.0) g/dL 06/26/17 06/26/17 06/26/17 Range/Units 05:30 05:30 07:23 RBC 3.23 L (4.30-5.90) m/uL Hgb 10.0 L (13.0-17.5) gm/dL Hct 30.2 L (39.0-53.0) % Plt Count 122 L (150-450) k/uL Lymphocytes # 0.8 L (1.0-4.8) k/uL Glucose 108 H (74-99) mg/dL POC Glucose (mg/dL) 126 H (75-99) mg/dL Phosphorus 2.4 L (2.5-4.5) mg/dL Total Protein 5.4 L (6.3-8.2) g/dL Albumin 3.0 L (3.5-5.0) g/dL Microbiology - Last 24 Hours (Table) 06/24/17 15:12 Gram Stain - Preliminary Bronchial Washings - Left Bronchial Washings Culture - Preliminary - Imaging and Cardiology Chest x-ray: report reviewed, image reviewed Assessment and Plan (1) Family history of premature coronary artery disease Current Visit: Yes Status: Chronic Code(s): Z82.49 - FAMILY HX OF ISCHEM HEART DIS AND OTH DIS OF THE CIRC SYS SNOMED Code(s): 617238508 (2) Coronary artery disease Current Visit: Yes Status: Chronic Code(s): I25.10 - ATHSCL HEART DISEASE OF [place] CORONARY ARTERY W/O ANG PCTRS SNOMED Code(s): 84810989 (3) GERD (gastroesophageal reflux disease) Current Visit: Yes Status: Chronic Code(s): K21.9 - GASTRO-ESOPHAGEAL REFLUX DISEASE WITHOUT ESOPHAGITIS SNOMED Code(s): 925167361 Plan: 1. Continue aspirin, statin, Plavix, subcu heparin, and devin. Will maximize beta devin therapy as tolerated. 2. Wean O2 as tolerated. Encourage incentive spirometry 10 times every hour. 3. Increase activity, ambulate in hallway. PT/OT/cardiac rehab following. 4. Discontinue arterial line, Cordis, Hall. 5. Likely will discontinue chest tubes today. 6. Will monitor daily labs and x-rays. 7. GI/DVT prophylaxis. 8. Insulin management per primary care services. 9. Will transfer to [facility]. selective care later today. 10. More recommendations to follow. Time with Patient: Greater than 30
[2017-06-26 12:16] LABS: Glucose,Whole Blood 102 mg/dL (75-99)
--- NOTE | 2017-06-26 13:01 | P.PN ---
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 Patient is a lifelong nonsmoker, has been complaining recently of substernal chest discomfort and radiation to his arms especially the left arm upon shoveling snow. Symptoms disappeared with rest. Hence the patient had a recent stress test on outpatient basis at [facility], and it was suggestive of ischemic changes. Hence the patient saw Dr. Rodriguez today, and he underwent cardiac catheterization. It showed critical ostial LAD stenosis and a long segment with normal LV function. Hence the patient was advised to undergo emergent coronary artery bypass grafting to the LAD. Considering plans for possible CABG, I was asked to see him on consultation for preoperative pulmonary clearance. Again the patient does not smoke, does not have any symptoms to suggest any underlying pulmonary disease. Denies any cough no wheezing no shortness of breath. Denies any headaches, no blurred vision, no dizziness. No nausea no vomiting no abdominal pain no melena no hematemesis no dysuria and no frequency no urgency. Patient is usually very active physically. Again he does not smoke, drinks a glass or 2 glasses of wine on a regular daily basis. Patient denies any specific occupational exposure. Chest x-ray done portable this morning is relatively normal. No evidence of active pulmonary disease. The patient is seen again today 06/24/2017 immediately postoperative in the intensive care unit. The patient had undergone a COUCH to the mid LAD and a saphenous vein graft to the diagonal branch. He is returned on the mechanical ventilator at SIMV mode at a rate of 12, tidal volume 600, FiO2 100% and a PEEP of 5. Arterial blood gases reveal a pO2 of 83, pCO2 45, pH 7.36. He is sedated on propofol currently at 50 mcg/kg/m., Clevidipine at 20 mg per hour, nitroglycerin at 5 mcg/m, lactated Ringer's at 50 MLS per hour. Cardiac output 7.9, cardiac index 3.6, current blood pressure 140/50, PA pressure 39/20 with a mean of 29, CVP 13. Chest x-ray reveals evidence of a right upper lobe collapse. Split mediastinal and left pleural chest tubes are in place and endotracheal tube in good position. Bronchoscopy will be performed. Bronchodilators every 4 hours. Cefazolin every 8 hours. Reevaluated today on 06/25/2017, patient is doing well, he was extubated last night uneventfully, presently on nasal cannula, in no form of respiratory distress, relatively asymptomatic except for aches and pains and feeling generally weak. CBC is relatively unremarkable hemoglobin is 10.9. WBC count is 11.3. Basic metabolic profile and renal profile are normal. Chest x-ray showed mostly postoperative changes, and full expansion of the right upper lobe. Small tiny left pleural effusion is noted. Reevaluated today on 06/26/2017, patient is postoperative day #2, urgent coronary artery bypass grafting 2 with left internal mammary artery to LAD, and reverse saphenous vein graft to diagonal. Postoperatively patient developed collapse of the right upper lobe requiring immediate bronchoscopy with complete resolution of his right upper lobe collapse. This was secondary to mucous plugging, unexpected, but could potentially happen. Patient is presently asymptomatic, sitting in a chair, no cough no wheezing no shortness of breath, quite pleased so far with his progression. CBC is normal and basic metabolic profile is normal. Patient is doing great with incentive spirometry. Objective - Vital Signs Vital signs: Vital Signs Temp 98.6 F 06/26/17 08:00 Pulse 96 06/26/17 12:18 Resp 16 06/26/17 12:18 BP 115/64 06/26/17 12:18 Pulse Ox 95 06/26/17 12:18 Intake & Output 06/25/17 06/26/17 06/26/17 18:59 06:59 18:59 Intake Total 1455 718 438 Output Total 1516 1495 210 Balance -61 -777 228 Weight 97.3 kg 102 kg 102 kg Intake: IV 615 468 88 CI/CO 30 Lactated Ringers 1,000 ml 480 360 70 @ 20 mls/hr IV .Q24H [facility] Rx#:[id number] pressure bag 105 108 18 Intake, IV Titration 0 Amount Insulin Regular 100 unit 0 In Sodium Chloride 0.9% 100 ml @ Per Protocol IV .Q0M [facility] Rx#:[id number] Oral 840 250 350 Output: Chest Tube Drainage 283 120 60 Chest Tube Left Pleural 98 30 10 Chest Tube Mediastinal 185 90 50 Drainage 25 Left Calf 25 Urine 1208 1375 150 Other: Voiding Method Indwelling Catheter Indwelling Catheter Bedside Commode Urinal # Bowel Movements 1 ABP, PAP, CO, CI - Last Documented Arterial Blood Pressure 121/70 Pulmonary Artery Pressure 21/14 Cardiac Output 6.7 Cardiac Index 3.0 - Exam GENERAL EXAM: Revealed a 72-year-old white male, pleasant, in no distress. On nasal cannula. HEAD: Normocephalic. EYES: PERRLA, EOMI, no icterus. NOSE: Clear with pink turbinates. THROAT: Moist mucous membranes, throat is clear.. NECK: Right [place]-Wale catheter in place. No masses, no JVD. CHEST: Sternal dressing dry and intact. LUNGS: Equal air entry nourished breath sounds at the bases, no crackles or rhonchi or wheezes. CVS: S1 and S2 normal with no audible murmur, regular rhythm. Positive pericardial rub ABDOMEN: No hepatosplenomegaly, hypoactive bowel sounds, no guarding or rigidity. SPINE: No scoliosis or deformity SKIN: No rashes CENTRAL NERVOUS SYSTEM: No gross focal neurologic deficit EXTREMITIES: No clubbing, edema or cyanosis. - Labs CBC & Chem 7: 06/26/17 05:30 06/26/17 05:30 Labs: Abnormal Lab Results - Last 24 Hours (Table) 06/23/17 06/25/17 06/25/17 Range/Units 14:51 16:56 20:27 RBC (4.30-5.90) m/uL Hgb (13.0-17.5) gm/dL Hct (39.0-53.0) % Plt Count (150-450) k/uL Lymphocytes # (1.0-4.8) k/uL Glucose (74-99) mg/dL POC Glucose (mg/dL) 111 H 106 H (75-99) mg/dL Phosphorus (2.5-4.5) mg/dL Total Protein (6.3-8.2) g/dL Albumin (3.5-5.0) g/dL Crossmatch See Detail 06/26/17 06/26/17 06/26/17 Range/Units 05:30 05:30 07:23 RBC 3.23 L (4.30-5.90) m/uL Hgb 10.0 L (13.0-17.5) gm/dL Hct 30.2 L (39.0-53.0) % Plt Count 122 L (150-450) k/uL Lymphocytes # 0.8 L (1.0-4.8) k/uL Glucose 108 H (74-99) mg/dL POC Glucose (mg/dL) 126 H (75-99) mg/dL Phosphorus 2.4 L (2.5-4.5) mg/dL Total Protein 5.4 L (6.3-8.2) g/dL Albumin 3.0 L (3.5-5.0) g/dL Crossmatch 06/26/17 Range/Units 12:13 RBC (4.30-5.90) m/uL Hgb (13.0-17.5) gm/dL Hct (39.0-53.0) % Plt Count (150-450) k/uL Lymphocytes # (1.0-4.8) k/uL Glucose (74-99) mg/dL POC Glucose (mg/dL) 102 H (75-99) mg/dL Phosphorus (2.5-4.5) mg/dL Total Protein (6.3-8.2) g/dL Albumin (3.5-5.0) g/dL Crossmatch Assessment and Plan Assessment: Impression: 1 new-onset angina with severely abnormal stress echocardiogram and abnormal cardiac catheterization showing a critical ostial LAD stenosis and a long segment with normal left ventricular size and systolic function. 2 history of GERD without esophagitis. 3 status post CABG, postoperative day #2 4 status post bronchoscopy for unexpected but potential right upper lobe collapse secondary to mucus plugging post CABG., Postoperative day #2 With complete reexpansion of the right upper lobe. Recommendation: Continue present supportive care measures, continue incentive spirometry, bronchodilators, ambulate, may transfer to a monitor bed on selective, we'll continue to follow. Time with Patient: Less than 30
--- NOTE | 2017-06-26 14:48 | PN ---
PROGRESS NOTE DATE OF SERVICE: 06/26/2017. HISTORY: Praveen a 72-year-old gentleman who is postop day #2 bypass surgery, doing well and is free of symptoms. Had been transferred to [facility] care. Remains in sinus rhythm and hemodynamically stable. Chest tubes are still in place. The patient is on aspirin, Lipitor, Plavix, Lopressor 25 b.i.d. On exam, comfortable at rest. Vital signs is stable. There is no jugular venous distention. Chest exam reveals diminished air entry at the bases. Heart exam reveals first and second heart sounds. No gallop. Exam of extremities did not reveal edema. Peripheral pulses are felt. CBC shows a hemoglobin of 10, platelet count is 122,000, potassium is 4.4, creatinine is 0.8. ASSESSMENT: Coronary artery disease status post coronary artery bypass grafting. The patient is doing well. Continue with the current care. MMODL / IJN: [id number] /
[2017-06-26 16:58] LABS: Glucose,Whole Blood 117 mg/dL (75-99)
[2017-06-26] MEDS: SENNOSIDES-DOCUSATE SODIUM 1 EACH TAB PO SCH (20:07)
--- NOTE | 2017-06-26 20:37 | P.PN ---
Subjective Progress Note Date: 06/26/17 Principal diagnosis: Status post CABG Patient is sitting up in chair currently denying chest pain, shortness breath, nausea, vomiting, dumping, dizziness, lightheadedness or blurry vision. Chest tubes continue to suction minimum amount of the fluid. Hall catheter was removed with normal urination. Arterial line is removed. Patient in no acute distress and family at the bedside. Objective - Vital Signs Vital signs: Vital Signs Temp 97.4 F L 06/26/17 20:00 Pulse 92 06/26/17 20:00 Resp 18 06/26/17 20:00 BP 126/76 06/26/17 20:00 Pulse Ox 94 L 06/26/17 20:00 Intake & Output 06/26/17 06/26/17 06/27/17 06:59 18:59 06:59 Intake Total 718 1158 Output Total 1495 285 100 Balance -777 873 -100 Weight 102 kg 102 kg Intake: IV 468 88 Lactated Ringers 1,000 ml 360 70 @ 20 mls/hr IV .Q24H [facility] Rx#:[id number] pressure bag 108 18 Oral 250 1070 Output: Chest Tube Drainage 120 110 Chest Tube Left Pleural 30 60 Chest Tube Mediastinal 90 50 Drainage 25 Left Calf 25 Urine 1375 150 100 Other: Voiding Method Indwelling Catheter Bedside Commode Toilet Urinal Urinal # Voids 1 # Bowel Movements 1 ABP, PAP, CO, CI - Last Documented Arterial Blood Pressure 121/70 Pulmonary Artery Pressure 21/14 Cardiac Output 6.7 Cardiac Index 3.0 - Exam Gen.: in stated age, no acute distress, right side of the neck positive for central venous catheter in place seems to be intact Heart: Normal S1-S2 Lungs: diminished bilaterally Abdomen: Soft, no tenderness, positive bowel sounds in all 4 quadrant no guarding or rebound Skin: No new rash Genitourinary positive for Hall catheter in place with clear urine Psych: Alert and oriented 3 Neuro: No focal deficit - Labs CBC & Chem 7: 06/26/17 05:30 06/26/17 05:30 Labs: Abnormal Lab Results - Last 24 Hours (Table) 06/23/17 06/26/17 06/26/17 Range/Units 14:51 05:30 05:30 RBC 3.23 L (4.30-5.90) m/uL Hgb 10.0 L (13.0-17.5) gm/dL Hct 30.2 L (39.0-53.0) % Plt Count 122 L (150-450) k/uL Lymphocytes # 0.8 L (1.0-4.8) k/uL Glucose 108 H (74-99) mg/dL POC Glucose (mg/dL) (75-99) mg/dL Phosphorus 2.4 L (2.5-4.5) mg/dL Total Protein 5.4 L (6.3-8.2) g/dL Albumin 3.0 L (3.5-5.0) g/dL Crossmatch See Detail 06/26/17 06/26/17 06/26/17 Range/Units 07:23 12:13 16:33 RBC (4.30-5.90) m/uL Hgb (13.0-17.5) gm/dL Hct (39.0-53.0) % Plt Count (150-450) k/uL Lymphocytes # (1.0-4.8) k/uL Glucose (74-99) mg/dL POC Glucose (mg/dL) 126 H 102 H 117 H (75-99) mg/dL Phosphorus (2.5-4.5) mg/dL Total Protein (6.3-8.2) g/dL Albumin (3.5-5.0) g/dL Crossmatch Assessment and Plan Assessment: 1. Coronary artery disease status post CABG . 2. Right upper lobe collapse status post bronchoscopy and mucous plug suctioning with complete resolution. 3. VDRF status post extubation. 4. Hypertension. 5. Macular degeneration bilaterally. 6. Hyperlipidemia. 7. Acute blood loss anemia. Stable. 8. Hyperglycemia. Off insulin drip. We will continue supportive care follow-up with cardiothoracic surgery recommendation. We will encourage hydration. Plan discussed with the patient and his at the bedside who are agreeable to the current treatment plan per cardiothoracic surgery recommendation. We'll monitor his vital signs closely and repeat blood work in the morning. Will consider physical and occupational therapy once approved by the primary team. We will continue wound care
[2017-06-26] MEDS: BENZOCAINE/MENTHOL LOZENG 1 EACH LOZENGE MUCOUS MEM PRN ×2 (21:11→23:23)
[2017-06-26 21:22] LABS: Glucose,Whole Blood 95 mg/dL (75-99)
[2017-06-27 00:59] VITALS: RESP 18
[2017-06-27 02:27] LABS: Glucose,Whole Blood 104 mg/dL (75-99)
[2017-06-27] MEDS: KETOROLAC 30 MG/ML 1 ML VIAL IVP SCH ×4 (06:06→23:03)
[2017-06-27] MEDS: PANTOPRAZOLE 40 MG TABLET PO SCH (06:06)
[2017-06-27 06:07] LABS: HCT 30.4 % (39.0-53.0); HGB 10.5 gm/dL (13.0-17.5); MCH 32.1 pg (25.0-35.0); MCHC 34.6 g/dL (31.0-37.0); MCV 92.8 fL (80.0-100.0); Mean Platelet Volume 7.8; Platelet Count 171 k/uL (150-450); RBC 3.28 m/uL (4.30-5.90); RDW 11.6 % (11.5-15.5); WBC 7.8 k/uL (3.8-10.6)
[2017-06-27 06:18] LABS: ALT 23 U/L (21-72); AST 23 U/L (17-59); Albumin 3.1 g/dL (3.5-5.0); Alkaline Phosphatase 57 U/L (38-126); Anion Gap 8 mmol/L; Blood Urea Nitrogen 13 mg/dL (9-20); Calcium 8.6 mg/dL (8.4-10.2); Carbon Dioxide 26 mmol/L (22-30); Chloride 106 mmol/L (98-107); Glucose 104 mg/dL (74-99); Magnesium 2.2 mg/dL (1.6-2.3); Potassium 4.5 mmol/L (3.5-5.1); Sodium 140 mmol/L (137-145); Total Bilirubin 0.6 mg/dL (0.2-1.3); Total Protein 5.5 g/dL (6.3-8.2)
[2017-06-27 06:22] LABS: Glucose,Whole Blood 100 mg/dL (75-99)
[2017-06-27] MEDS: INSULIN ASPART 100 UNIT/ML 1 ML 10 ML VIAL SQ SCH ×5 (07:07→21:05)
[2017-06-27] MEDS: ISOSORBIDE MONONITRATE ER 30 MG TAB.ER.24H PO SCH (07:46)
[2017-06-27] MEDS: METOPROLOL TARTRATE 25 MG TAB PO SCH ×3 (07:46→20:20)
[2017-06-27] MEDS: MUPIROCIN 2% OINT 22 GM TUBE NASAL SCH ×3 (07:47→20:21)
[2017-06-27] MEDS: ATORVASTATIN 40 MG TAB PO SCH (08:04)
[2017-06-27] MEDS: ASPIRIN 325 MG TAB PO SCH (08:04)
[2017-06-27] MEDS: HEPARIN SODIUM,PORCINE 5,000 UNIT/ML 1 ML VIAL SQ SCH ×3 (08:04→23:03)
[2017-06-27] MEDS: CLOPIDOGREL 75 MG TAB PO SCH (08:04)
[2017-06-27] MEDS: IPRATROPIUM-ALBUTEROL 3 ML NEB INHALATION SCH ×4 (08:24→20:44)
[2017-06-27] MEDS ORDERED: FUROSEMIDE 10 MG/ML 2 ML VIAL IV STA (08:41)
--- NOTE | 2017-06-27 09:36 | XR ---
EXAMINATION TYPE: XR chest 1V portable DATE OF EXAM: 06/27/2017 COMPARISON: 06/26/2017 HISTORY: Post open heart TECHNIQUE: Single frontal view of the chest is obtained. FINDINGS: Left-sided chest tube is seen. There is bilateral consolidation and pleural effusion great er right. No sizable pneumothorax. Right-sided central venous catheter has been removed. Postoperativ e changes noted. IMPRESSION: 1. Stable bilateral infiltrate or atelectasis postoperatively with small bilateral effusion.
[2017-06-27 11:21] LABS: Glucose,Whole Blood 91 mg/dL (75-99)
--- NOTE | 2017-06-27 11:37 | P.PN ---
Subjective Progress Note Date: 06/27/17 Principal diagnosis: CABG This is 72-year-old gentleman who is status post urgent coronary artery bypass grafting surgery with COUCH to the LAD, reverse saphenous vein graft to the diagonal. He is currently being followed on the telemetry unit. Patient was seen and examined this morning, doing well, denies any chest pain, breathing overall has been stable. Blood pressure 114/60 with a heart rate in the 50s to 60s. Afebrile. White blood cell count 7.8, hemoglobin 10.5, platelet count 171. Sodium 140, potassium 4.5, BUN 13, creatinine 0.9. Chest x -ray revealed stable bilateral infiltrates or atelectasis postoperatively with small bilateral effusions. Objective - Vital Signs Vital signs: Vital Signs Temp 97.8 F 06/27/17 08:00 Pulse 91 06/27/17 09:42 Resp 18 06/27/17 08:00 BP 128/72 06/27/17 09:42 Pulse Ox 95 06/27/17 09:42 Intake & Output 06/26/17 06/27/17 06/27/17 18:59 06:59 18:59 Intake Total 1158 Output Total 285 1545 Balance 873 -1545 Weight 102 kg 102 kg Intake: IV 88 Lactated Ringers 1,000 ml 70 @ 20 mls/hr IV .Q24H [facility] Rx#:[id number] pressure bag 18 Oral 1070 Output: Chest Tube Drainage 110 25 Chest Tube Left Pleural 60 25 Chest Tube Mediastinal 50 Drainage 25 20 Left Calf 25 20 Urine 150 1500 Other: Voiding Method Bedside Commode Toilet Urinal Urinal # Voids 1 # Bowel Movements 1 ABP, PAP, CO, CI - Last Documented Arterial Blood Pressure 121/70 Pulmonary Artery Pressure 21/14 Cardiac Output 6.7 Cardiac Index 3.0 - Exam PHYSICAL EXAMINATION: HEENT: Head is atraumatic, normocephalic. Pupils equal, round. Neck is supple. There is no elevated jugular venous pressure. HEART EXAMINATION: Heart S1, S2 normal. No murmur or gallop heard. CHEST EXAMINATION: Lungs are clear with mild diminished air entry to the bases . ABDOMEN: Soft, nontender. Bowel sounds are heard. No organomegaly noted. EXTREMITIES: 2+ peripheral pulses with no evidence of peripheral edema and no calf tenderness noted. Bilateral Venodyne's in place. NEUROLOGIC patient is awake, alert and oriented -3. . - Labs CBC & Chem 7: 06/27/17 05:33 06/27/17 05:33 Labs: Abnormal Lab Results - Last 24 Hours (Table) 06/23/17 06/26/17 06/26/17 Range/Units 14:51 12:13 16:33 RBC (4.30-5.90) m/uL Hgb (13.0-17.5) gm/dL Hct (39.0-53.0) % Glucose (74-99) mg/dL POC Glucose (mg/dL) 102 H 117 H (75-99) mg/dL Total Protein (6.3-8.2) g/dL Albumin (3.5-5.0) g/dL Crossmatch See Detail 06/27/17 06/27/17 06/27/17 Range/Units 02:12 05:33 05:33 RBC 3.28 L (4.30-5.90) m/uL Hgb 10.5 L (13.0-17.5) gm/dL Hct 30.4 L (39.0-53.0) % Glucose 104 H (74-99) mg/dL POC Glucose (mg/dL) 104 H (75-99) mg/dL Total Protein 5.5 L (6.3-8.2) g/dL Albumin 3.1 L (3.5-5.0) g/dL Crossmatch 06/27/17 Range/Units 06:20 RBC (4.30-5.90) m/uL Hgb (13.0-17.5) gm/dL Hct (39.0-53.0) % Glucose (74-99) mg/dL POC Glucose (mg/dL) 100 H (75-99) mg/dL Total Protein (6.3-8.2) g/dL Albumin (3.5-5.0) g/dL Crossmatch Microbiology - Last 24 Hours (Table) 06/24/17 15:12 Gram Stain - Final Bronchial Washings - Left Bronchial Washings Culture - Final Assessment and Plan Plan: Assessment and plan #1 status post coronary bypass grafting surgery #2 hyperlipidemia #3 GERD Plan From cardiology's perspective, the patient's current medications have been reviewed, we will continue as same. Patient has been encouraged regarding the use of his incentive spirometry. DNP note has been reviewed, I agree with a documented findings and plan of care. Patient was seen and examined.
--- NOTE | 2017-06-27 12:18 | P.PN ---
Subjective Progress Note Date: 06/27/17 Principal diagnosis: Coronary artery disease. History of GERD. Family history of premature coronary artery disease. POD #3 urgent coronary artery bypass grafting 2 with the left internal mammary artery to the left anterior descending artery, reverse saphenous vein graft to diagonal artery. Endoscopic vein harvesting of the left greater saphenous vein. Intraoperative transesophageal echocardiogram and epi-aortic scanning. Postoperative complete collapse of the right upper lobe after surgery, an unexpected about potential outcome of surgery. POD #3 bronchoscopy and bronchial alveolar lavage of the right upper lobe with mucous plug suctioning. Patient's currently sitting up in a recliner in no acute distress. Denies pain , short of breath. Has been ambulating in the hallway. No new complaints. Objective - Vital Signs Vital signs: Vital Signs Temp 97.8 F 06/27/17 08:00 Pulse 88 06/27/17 12:03 Resp 18 06/27/17 08:00 BP 128/72 06/27/17 09:42 Pulse Ox 95 06/27/17 09:42 Intake & Output 1818 06/27/17 06/27/17 18:59 06:59 18:59 Intake Total 1158 Output Total 285 1545 Balance 873 -1545 Weight 102 kg 102 kg Intake: IV 88 Lactated Ringers 1,000 ml 70 @ 20 mls/hr IV .Q24H [facility] Rx#:[id number] pressure bag 18 Oral 1070 Output: Chest Tube Drainage 110 25 Chest Tube Left Pleural 60 25 Chest Tube Mediastinal 50 Drainage 25 20 Left Calf 25 20 Urine 150 1500 Other: Voiding Method Bedside Commode Toilet Urinal Urinal # Voids 1 # Bowel Movements 1 ABP, PAP, CO, CI - Last Documented Arterial Blood Pressure 121/70 Pulmonary Artery Pressure 21/14 Cardiac Output 6.7 Cardiac Index 3.0 - Constitutional General appearance: Present: cooperative, no acute distress - Respiratory Details: Lungs sounds diminished bilaterally. Respirations even, nonlabored. Currently on room air with oxygen saturation 93%. Able to achieve 1250 mL on his incentive spirometry. Left pleural chest tube was present this morning to continuous wall suction, 25 mL of thin serosanguineous drainage overnight, 100 mL in the last 24 hours. Chest tube discontinued without incident. - Cardiovascular Details: S1, S2 present. Regular rate and rhythm, sinus rhythm on telemetry. Sternum stable. A/V epicardial pacemaker wires discontinued this morning, no ectopy noted. Palpable peripheral pulses bilaterally. No edema present. No calf pain or tenderness noted. Heart hugger in place with patient demonstrating appropriate use. Antiembolism stockings, SCDs present. - Gastrointestinal Gastrointestinal Comment(s): Abdomen soft, nontender, nondistended. Active bowel sounds 4 quadrants. Tolerating diet. Positive bowel movement. - Genitourinary Genitourinary Comment(s): Continues to void clear, yellow urine. - Integumentary Integumentary Comment(s): Skin is warm and dry with evidence of good perfusion. Anterior chest incision well approximated and covered with dry intact dressing. Left lower extremity EVH site well approximated, LUIS drain removed this morning without incident. - Neurologic Neurologic: Present: CNII-XII intact - Musculoskeletal Musculoskeletal: Present: gait normal, strength equal bilaterally - Psychiatric Psychiatric: Present: A&O x's 3, appropriate affect, intact judgment & insight - Allied health notes Allied health notes reviewed: nursing - Labs CBC & Chem 7: 06/27/17 05:33 06/27/17 05:33 Labs: Abnormal Lab Results - Last 24 Hours (Table) 06/26/17 06/26/17 06/27/17 Range/Units 12:13 16:33 02:12 RBC (4.30-5.90) m/uL Hgb (13.0-17.5) gm/dL Hct (39.0-53.0) % Glucose (74-99) mg/dL POC Glucose (mg/dL) 102 H 117 H 104 H (75-99) mg/dL Total Protein (6.3-8.2) g/dL Albumin (3.5-5.0) g/dL 06/27/17 06/27/17 06/27/17 Range/Units 05:33 05:33 06:20 RBC 3.28 L (4.30-5.90) m/uL Hgb 10.5 L (13.0-17.5) gm/dL Hct 30.4 L (39.0-53.0) % Glucose 104 H (74-99) mg/dL POC Glucose (mg/dL) 100 H (75-99) mg/dL Total Protein 5.5 L (6.3-8.2) g/dL Albumin 3.1 L (3.5-5.0) g/dL Microbiology - Last 24 Hours (Table) 06/24/17 15:12 Gram Stain - Final Bronchial Washings - Left Bronchial Washings Culture - Final - Imaging and Cardiology Chest x-ray: report reviewed, image reviewed Assessment and Plan (1) Family history of premature coronary artery disease Current Visit: Yes Status: Chronic Code(s): Z82.49 - FAMILY HX OF ISCHEM HEART DIS AND OTH DIS OF THE CIRC SYS SNOMED Code(s): 595059116 (2) Coronary artery disease Current Visit: Yes Status: Chronic Code(s): I25.10 - ATHSCL HEART DISEASE OF [place] CORONARY ARTERY W/O ANG PCTRS SNOMED Code(s): 12981479 (3) GERD (gastroesophageal reflux disease) Current Visit: Yes Status: Chronic Code(s): K21.9 - GASTRO-ESOPHAGEAL REFLUX DISEASE WITHOUT ESOPHAGITIS SNOMED Code(s): 405532770 Plan: 1. Continue aspirin, statin, Plavix, subcu heparin, and devin. Will maximize beta devin therapy as tolerated. 2. Encourage incentive spirometry 10 times every hour. 3. Increase activity, ambulate in hallway. PT/OT/cardiac rehab following. 4. Left pleural chest tube, epicardial pacemaker wires, left lower extremity LUIS drain discontinued this morning. 5. Will give 20 mg IV Lasix today. 6. Will monitor daily labs and x-rays. 7. GI/DVT prophylaxis. 8. Insulin management per primary care services. 9. More recommendations to follow. Anticipate discharge to home with home care 24-48 hours. Time with Patient: Greater than 30
--- NOTE | 2017-06-27 14:13 | P.PN ---
Subjective Progress Note Date: 06/27/17 Principal diagnosis: Status post bypass grafting Progress note dated 06/27/2017 This is a 72-year-old male who is postop day #3 status post bypass grafting. He also has a history of new onset angina. The patient is doing relatively well. Hopeful to be discharged in a day or 2. Denies any chest pain or chest discomfort. No shortness of breath. No nausea vomiting. No diarrhea. No other complaints for that matter. He did require bronchoscopy after his surgery for plugging and collapse of the right upper lobe. That responded very nicely to bronchoscopy. Other than that he is doing well. He continues on breathing treatments and incentive spirometry. Denies any difficulty breathing coughing wheezing. Not requiring any oxygen therapy. No chest pain or chest discomfort. Objective - Vital Signs Vital signs: Vital Signs Temp 97.8 F 06/27/17 08:00 Pulse 94 06/27/17 12:13 Resp 18 06/27/17 08:00 BP 128/72 06/27/17 09:42 Pulse Ox 95 06/27/17 09:42 Intake & Output 06/26/17 06/27/17 06/27/17 18:59 06:59 18:59 Intake Total 1158 Output Total 285 1545 20 Balance 873 -1545 -20 Weight 102 kg 102 kg Intake: IV 88 Lactated Ringers 1,000 ml 70 @ 20 mls/hr IV .Q24H [facility] Rx#:[id number] pressure bag 18 Oral 1070 Output: Chest Tube Drainage 110 25 Chest Tube Left Pleural 60 25 Chest Tube Mediastinal 50 Drainage 25 20 20 Left Calf 25 20 20 Urine 150 1500 Other: Voiding Method Bedside Commode Toilet Urinal Urinal # Voids 1 # Bowel Movements 1 ABP, PAP, CO, CI - Last Documented Arterial Blood Pressure 121/70 Pulmonary Artery Pressure 21/14 Cardiac Output 6.7 Cardiac Index 3.0 - Exam No acute distress, oriented 3. The patient is breathing room air HEENT examination is grossly unremarkable. Mucous membranes are moist. No oral lesions. Neck supple. Full range of motion. No adenopathy thyromegaly or neck vein distention. Cardiovascular examination reveals regular rhythm rate. S1-S2 normal. No S3 or S4. No discernible murmur noted. Lungs reveal clear breath sounds. Her sounds are equal bilaterally. No adventitious lung sounds including wheezes rhonchi or crackles. Abdomen soft bowel sounds are heard. No masses or tenderness. Extremities are intact. No cyanosis clubbing or edema. Skin is without rash or lesion. Neurologic examination is brief but nonfocal. - Labs CBC & Chem 7: 06/27/17 05:33 06/27/17 05:33 Labs: Abnormal Lab Results - Last 24 Hours (Table) 06/26/17 06/27/17 06/27/17 Range/Units 16:33 02:12 05:33 RBC (4.30-5.90) m/uL Hgb (13.0-17.5) gm/dL Hct (39.0-53.0) % Glucose 104 H (74-99) mg/dL POC Glucose (mg/dL) 117 H 104 H (75-99) mg/dL Total Protein 5.5 L (6.3-8.2) g/dL Albumin 3.1 L (3.5-5.0) g/dL 06/27/17 06/27/17 Range/Units 05:33 06:20 RBC 3.28 L (4.30-5.90) m/uL Hgb 10.5 L (13.0-17.5) gm/dL Hct 30.4 L (39.0-53.0) % Glucose (74-99) mg/dL POC Glucose (mg/dL) 100 H (75-99) mg/dL Total Protein (6.3-8.2) g/dL Albumin (3.5-5.0) g/dL Microbiology - Last 24 Hours (Table) 06/24/17 15:12 Gram Stain - Final Bronchial Washings - Left Bronchial Washings Culture - Final Assessment and Plan Assessment: Assessment Coronary artery disease, status post bypass grafting, postoperative day #3 Right upper lobe collapse, postoperatively, status post bronchoscopy History of GERD History of esophagitis Plan: Plan dated 06/27/2017. The patient seemed be doing relatively well. His been weaned off oxygen therapy. Continues to use his incentive spirometer. Continues on breathing treatments and other medications. The patient may be discharged home in a day or 2. No additional recommendations are made. Follow-up in the office with Dr. Cedillo. Time with Patient: Less than 30
[2017-06-27 16:45] LABS: Glucose,Whole Blood 107 mg/dL (75-99)
--- NOTE | 2017-06-27 16:56 | P.PN ---
Subjective Progress Note Date: 06/27/17 This is a 72-year-old gentleman patient of Dr. Brad Hardwick. Dr. Rodriguez. She has underlying history of GERD, with no significant past medical history, complained off chest discomfort a few days ago consisting off for chest pain during a snow shoveling 3 weeks ago, patient had chest tightness 2 days prior to admission for which he underwent a stress echocardiogram on June 23 2017 necessary. Necessitating as cardiac catheterization performed right radial artery on 06/23/2017. Stress test findings include mild anterior and apical hypokinesia at the peak of exercise consistent with LAD disease, progressing EF is about 55-60%, stress echo EF shows 40-45%, wall motion abnormality anteroseptal and mid anterior apex and anterolateral oakley performed an exercise of 5 minutes reaching a stage II at 2.5 miles per hour, 12 incline. Unable to find cardiac cath report , I be notified by someone regarding the abnormal stress test requiring cardiothoracic surgeon evaluation, anticipating bypass surgery on 06/24/2017, Dr. Smith consulted for critical care pulmonary medicine. Patient denies any prior history of CAD, no hypertension, hyperlipidemia, denies diabetes mellitus type 2, no CVA, no CHF 06/27: Patient is status post urgent coronary artery bypass grafting surgery with COUCH to LAD, reverse saphenous vein graft to the diagonal. Patient is now on the selective care unit and seen. He denies having any chest pain or shortness of breath. He states he is walking without any lightheadedness or dizziness. He denies any lower extremity edema. He denies palpitations. He states he is eating well and he had a good bowel movement yesterday he did not notice any blood. His most recent chest x-ray reveals stable bilateral infiltrates or atelectasis. Postoperatively with small bilateral effusions. Objective - Vital Signs Vital signs: Vital Signs Temp 99.8 F H 06/27/17 04:00 Pulse 92 06/27/17 08:52 Resp 18 06/27/17 04:00 BP 126/70 06/27/17 04:00 Pulse Ox 93 L 06/27/17 04:00 Intake & Output 06/26/17 06/27/17 06/27/17 18:59 06:59 18:59 Intake Total 1158 Output Total 285 1545 Balance 873 -1545 Weight 102 kg 102 kg Intake: IV 88 Lactated Ringers 1,000 ml 70 @ 20 mls/hr IV .Q24H [facility] Rx#:[id number] pressure bag 18 Oral 1070 Output: Chest Tube Drainage 110 25 Chest Tube Left Pleural 60 25 Chest Tube Mediastinal 50 Drainage 25 20 Left Calf 25 20 Urine 150 1500 Other: Voiding Method Bedside Commode Toilet Urinal Urinal # Voids 1 # Bowel Movements 1 ABP, PAP, CO, CI - Last Documented Arterial Blood Pressure 121/70 Pulmonary Artery Pressure 21/14 Cardiac Output 6.7 Cardiac Index 3.0 - Constitutional General appearance: Present: average body habitus, cooperative, no acute distress. Absent: disheveled - EENT Eyes: Present: PERRLA, normal appearance - Neck Neck: Present: normal ROM. Absent: rigidity, stridor, thyromegaly - Respiratory Respiratory: bilateral: CTA, negative: wheezing - Cardiovascular Rhythm: regular Heart sounds: normal: S1, S2 - Gastrointestinal General gastrointestinal: Present: normal bowel sounds, soft. Absent: distended , rigid, tenderness - Integumentary Integumentary: Present: normal, normal turgor - Neurologic Neurologic: Present: CNII-XII intact. Absent: focal deficits - Musculoskeletal Musculoskeletal: Present: gait normal, strength equal bilaterally. Absent: generalized weakness, right sided weakness, left sided weakness - Psychiatric Psychiatric: Present: A&O x's 3, appropriate affect, intact judgment & insight - Labs CBC & Chem 7: 06/27/17 05:33 06/27/17 05:33 Labs: Abnormal Lab Results - Last 24 Hours (Table) 06/23/17 06/26/17 06/26/17 Range/Units 14:51 12:13 16:33 RBC (4.30-5.90) m/uL Hgb (13.0-17.5) gm/dL Hct (39.0-53.0) % Glucose (74-99) mg/dL POC Glucose (mg/dL) 102 H 117 H (75-99) mg/dL Total Protein (6.3-8.2) g/dL Albumin (3.5-5.0) g/dL Crossmatch See Detail 06/27/17 06/27/17 06/27/17 Range/Units 02:12 05:33 05:33 RBC 3.28 L (4.30-5.90) m/uL Hgb 10.5 L (13.0-17.5) gm/dL Hct 30.4 L (39.0-53.0) % Glucose 104 H (74-99) mg/dL POC Glucose (mg/dL) 104 H (75-99) mg/dL Total Protein 5.5 L (6.3-8.2) g/dL Albumin 3.1 L (3.5-5.0) g/dL Crossmatch 06/27/17 Range/Units 06:20 RBC (4.30-5.90) m/uL Hgb (13.0-17.5) gm/dL Hct (39.0-53.0) % Glucose (74-99) mg/dL POC Glucose (mg/dL) 100 H (75-99) mg/dL Total Protein (6.3-8.2) g/dL Albumin (3.5-5.0) g/dL Crossmatch Assessment and Plan Plan: 1. Coronary artery disease status post CABG. Patient is managed by cardiothoracic surgery. Continue to increase activity, use incentive spirometry. Patient is off oxygen therapy. Continue aspirin, Lipitor, Plavix, heparin, Lopressor. 2. Collapse of the right upper lobe after surgery status post bronchoscopy and bronchial alveolar lavage with mucous plug, stable patient is off oxygen therapy patient to use incentive spirometry and increase activity. Continue DuoNeb treatments 3. Gastroesophageal reflux disease. Continue Protonix. Discharge plan: Return home with the clear and home care Impression and plan of care have been directed as dictated by the signing physician. Elizabeth Powell nurse practitioner acting as scribe for signing physician.
[2017-06-27] MEDS: SENNOSIDES-DOCUSATE SODIUM 1 EACH TAB PO SCH ×2 (20:18→20:20)
[2017-06-27 21:04] LABS: Glucose,Whole Blood 91 mg/dL (75-99)
[2017-06-27] MEDS: BENZOCAINE/MENTHOL LOZENG 1 EACH LOZENGE MUCOUS MEM PRN (21:05)
[2017-06-28] MEDS: PANTOPRAZOLE 40 MG TABLET PO SCH (06:17)
[2017-06-28] MEDS: KETOROLAC 30 MG/ML 1 ML VIAL IVP SCH ×2 (06:17→12:34)
[2017-06-28] MEDS: INSULIN ASPART 100 UNIT/ML 1 ML 10 ML VIAL SQ SCH ×2 (06:18→12:30)
[2017-06-28 06:22] LABS: HCT 31.1 % (39.0-53.0); HGB 10.8 gm/dL (13.0-17.5); MCHC 34.8 g/dL (31.0-37.0); MCV 91.9 fL (80.0-100.0); Mean Platelet Volume 7.9; Platelet Count 215 k/uL (150-450); RBC 3.38 m/uL (4.30-5.90); RDW 11.8 % (11.5-15.5); WBC 7.3 k/uL (3.8-10.6)
[2017-06-28 06:33] LABS: ALT 34 U/L (21-72); AST 37 U/L (17-59); Albumin 3.2 g/dL (3.5-5.0); Alkaline Phosphatase 59 U/L (38-126); Anion Gap 8 mmol/L; Blood Urea Nitrogen 13 mg/dL (9-20); Calcium 8.9 mg/dL (8.4-10.2); Carbon Dioxide 26 mmol/L (22-30); Chloride 107 mmol/L (98-107); Glucose 106 mg/dL (74-99); Magnesium 2.1 mg/dL (1.6-2.3); Potassium 4.5 mmol/L (3.5-5.1); Sodium 141 mmol/L (137-145); Total Bilirubin 0.6 mg/dL (0.2-1.3); Total Protein 5.6 g/dL (6.3-8.2)
[2017-06-28 06:39] LABS: Glucose,Whole Blood 104 mg/dL (75-99)
[2017-06-28] MEDS: METOPROLOL TARTRATE 25 MG TAB PO SCH (07:46)
[2017-06-28] MEDS: HEPARIN SODIUM,PORCINE 5,000 UNIT/ML 1 ML VIAL SQ SCH (07:47)
[2017-06-28] MEDS ORDERED: METOPROLOL TARTRATE 25 MG TAB PO STA (07:50)
--- NOTE | 2017-06-28 08:28 | XR ---
EXAMINATION TYPE: XR chest 2V DATE OF EXAM: 06/28/2017 COMPARISON: Prior chest x-ray 06/27/2017 HISTORY: Post cardiac surgery TECHNIQUE: Frontal and lateral views of the chest are obtained. FINDINGS: Patient is post median sternotomy. Heart remains enlarged. Left-sided chest tube has been removed. No evident pneumothorax. Interval blunting of the left costophrenic angle persists. Patchy b asilar density is again noted. Patient is rotated. Prominent lung volumes may be indicative of underl [place] COPD. Suspect epicardial pacing leads are in place. There are overlying cardiac leads. Pulmonary vascularity and doug are similar. IMPRESSION: Interval chest tube removal, residual basilar atelectasis, possible small effusion. Stab le cardiomegaly. Additional follow-up recommended.
[2017-06-28] MEDS ORDERED: FUROSEMIDE 10 MG/ML 2 ML VIAL IV STA (08:42)
[2017-06-28] MEDS: IPRATROPIUM-ALBUTEROL 3 ML NEB INHALATION SCH ×2 (09:08→12:20)
--- NOTE | 2017-06-28 10:08 | P.VSCSTY ---
Greater Saphenous Vein Mapping This is bilateral lower extremity greater saphenous vein mapping. Date of service 06/24/2017 Vein quality and ultrasound appearance no intraluminal thrombus or wall changes. Vein size groin right 6.9 x 4.1 groin left 8.4 x 6.1 High thigh right 4.5 x 4.5 high thigh left 5.0 x 4.4 Mid thigh right 5.0 x 3.9 mid thigh left 2.7 x 3.2 Above-knee right 4.1 x 3.2 above-knee left 3.6 x 2.9 Below knee right 2.9 x 2.9 below-knee left 3.5 x 2.8 Mid calf right 1.9 x 2.1 mid calf left 2.9 x 2.3 Ankle right 2.5 x 2.4 ankle left to 0.1 x 2.0 Impression usable bilateral greater saphenous vein.
[2017-06-28] MEDS: ATORVASTATIN 40 MG TAB PO SCH (10:10)
[2017-06-28] MEDS: ASPIRIN 325 MG TAB PO SCH (10:10)
[2017-06-28] MEDS: CLOPIDOGREL 75 MG TAB PO SCH (10:10)
--- NOTE | 2017-06-28 10:29 | P.PN ---
Subjective Progress Note Date: 06/28/17 Principal diagnosis: Coronary artery disease. History of GERD. Family history of premature coronary artery disease. POD #4 urgent coronary artery bypass grafting 2 with the left internal mammary artery to the left anterior descending artery, reverse saphenous vein graft to diagonal artery. Endoscopic vein harvesting of the left greater saphenous vein. Intraoperative transesophageal echocardiogram and epi-aortic scanning. Postoperative complete collapse of the right upper lobe after surgery, an unexpected about potential outcome of surgery. POD #4 bronchoscopy and bronchial alveolar lavage of the right upper lobe with mucous plug suctioning. Patient's currently sitting up in a recliner in no acute distress. Denies pain , shortness of breath. Has been ambulating in the hallway. No new complaints. Looking forward to going home. Objective - Vital Signs Vital signs: Vital Signs Temp 98.9 F 06/28/17 07:40 Pulse 92 06/28/17 09:28 Resp 18 06/28/17 07:40 BP 127/73 06/28/17 07:40 Pulse Ox 94 L 06/28/17 07:40 Intake & Output 06/27/17 06/28/17 06/28/17 18:59 06:59 18:59 Intake Total 240 0 Output Total 20 775 Balance 220 -775 Weight 98.7 kg Intake: IV 0 Lactated Ringers 1,000 ml 0 @ 20 mls/hr IV .Q24H AZUL Rx#:[id number] Oral 240 Output: Drainage 20 Left Calf 20 Urine 775 Other: Voiding Method Toilet Urinal # Voids 2 ABP, PAP, CO, CI - Last Documented Arterial Blood Pressure 121/70 Pulmonary Artery Pressure 21/14 Cardiac Output 6.7 Cardiac Index 3.0 - Constitutional General appearance: Present: cooperative, no acute distress - Respiratory Details: Lungs sounds clear bilaterally. Respirations even, nonlabored. Currently on room air with oxygen saturation 93%. Able to achieve 1500 mL on his incentive spirometry. Strong cough. - Cardiovascular Details: S1, S2 present. Regular rate and rhythm, sinus rhythm on telemetry. He was sinus tach in the low 100s this morning. Sternum stable. Palpable peripheral pulses bilaterally. Trace lower extremity edema present. No calf pain or tenderness noted. Heart hugger placed patient demonstrating appropriate use. Antiembolism stockings, SCDs present. - Gastrointestinal Gastrointestinal Comment(s): Abdomen soft, nontender, nondistended. Active bowel sounds 4 quadrants. Tolerating diet. Positive bowel movement. - Genitourinary Genitourinary Comment(s): Continues to void clear, yellow urine. - Integumentary Integumentary Comment(s): Skin is warm and dry with evidence of good perfusion. Anterior chest incision well approximated. Left lower extremity EVH site well approximated. - Neurologic Neurologic: Present: CNII-XII intact - Musculoskeletal Musculoskeletal: Present: gait normal, strength equal bilaterally - Psychiatric Psychiatric: Present: A&O x's 3, appropriate affect, intact judgment & insight - Allied health notes Allied health notes reviewed: nursing - Labs CBC & Chem 7: 06/28/17 06:01 06/28/17 06:01 Labs: Abnormal Lab Results - Last 24 Hours (Table) 06/27/17 06/28/17 06/28/17 Range/Units 16:42 06:01 06:01 RBC 3.38 L (4.30-5.90) m/uL Hgb 10.8 L (13.0-17.5) gm/dL Hct 31.1 L (39.0-53.0) % Glucose 106 H (74-99) mg/dL POC Glucose (mg/dL) 107 H (75-99) mg/dL Total Protein 5.6 L (6.3-8.2) g/dL Albumin 3.2 L (3.5-5.0) g/dL 06/28/17 Range/Units 06:37 RBC (4.30-5.90) m/uL Hgb (13.0-17.5) gm/dL Hct (39.0-53.0) % Glucose (74-99) mg/dL POC Glucose (mg/dL) 104 H (75-99) mg/dL Total Protein (6.3-8.2) g/dL Albumin (3.5-5.0) g/dL Microbiology - Last 24 Hours (Table) 06/24/17 15:12 Gram Stain - Final Bronchial Washings - Left Bronchial Washings Culture - Final - Imaging and Cardiology Chest x-ray: report reviewed, image reviewed Assessment and Plan (1) Family history of premature coronary artery disease Current Visit: Yes Status: Chronic Code(s): Z82.49 - FAMILY HX OF ISCHEM HEART DIS AND OTH DIS OF THE CIRC SYS SNOMED Code(s): 914549192 (2) Coronary artery disease Current Visit: Yes Status: Chronic Code(s): I25.10 - ATHSCL HEART DISEASE OF [place] CORONARY ARTERY W/O ANG PCTRS SNOMED Code(s): 52097917 (3) GERD (gastroesophageal reflux disease) Current Visit: Yes Status: Chronic Code(s): K21.9 - GASTRO-ESOPHAGEAL REFLUX DISEASE WITHOUT ESOPHAGITIS SNOMED Code(s): 284252981 Plan: 1. Continue aspirin, statin, Plavix, subcu heparin, and devin. Will maximize beta devin therapy as tolerated, increased Lopressor this morning to 50 mg twice daily. 2. Encourage incentive spirometry 10 times every hour. 3. Increase activity, ambulate in hallway. PT/OT/cardiac rehab following. 4. Will give 20 mg IV Lasix today. 5. Will monitor daily labs and x-rays. 6. GI/DVT prophylaxis. 7. Insulin management per primary care services. 8. Anticipate discharge to home with home care later today. Time with Patient: Greater than 30
--- NOTE | 2017-06-28 11:57 | P.DS ---
Providers Date of admission: 06/23/17 13:49 Expected date of discharge: 06/28/17 Attending physician: oJse Pacheco Consults: 06/23/17 12:48 Consult Physician Stat Consulting Provider: Jose Pacheco Consult Reason/Comments: cad Do you want consulting provider notified?: Already Contacted 06/23/17 12:53 Consult Physician Routine Consulting Provider: Shirley Triana Consult Reason/Comments: Medical Management Do you want consulting provider notified?: Already Contacted Consult Physician Routine Consulting Provider: Belinda Cedillo Consult Reason/Comments: Pulmonary Management Do you want consulting provider notified?: Already Contacted Consult to Anesthesia Routine Consulting Provider: Anesthesia,Services Consult Reason/Comments: Cardiac Surgery Pre-Op 06/24/17 12:53 Consult Physician Routine Consulting Provider: Artem Rodriguez Consult 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 Coronary artery disease 2. History of GERD 3. Family history of premature coronary artery disease 4. Postoperative collapse of the right upper lobe of the lung PRINCIPAL PROCEDURE: 1. Cardiac catheterization 2. Urgent coronary artery bypass grafting 2 with the left internal mammary artery to the left anterior descending artery, reverse saphenous vein graft to the diagonal artery 3. Endoscopic vein harvesting of the left greater saphenous vein 4. Intraoperative transesophageal echocardiogram 5. Epi-aortic scanning 6. Bronchoscopy and bronchoalveolar lavage the right upper lobe with mucous plug suctioning HISTORY OF PRESENT ILLNESS: This 72-year-old gentleman with no history of major medical problems presented to his primary care physician with complaints of chest pain aggravated by activity and relieved with rest, associated with shortness of breath. He was referred to Dr. Rodriguez and a stress test was completed with suggestion of ischemic changes. He was referred for heart catheterization which demonstrated normal LV function, but critical ostial LAD stenosis. Dr. Pacheco from cardiothoracic surgery was consulted for possible surgical revascularization. An extensive discussion was had with the patient and his family, risks and benefits were explained, and consent was obtained to proceed with surgery. HOSPITAL COURSE: On 06/24/2018 the patient was taken to the preoperative area, prepared in usual fashion, and subsequently taken to the operating room where Dr. Pacehco performed an urgent coronary artery bypass grafting 2 with left internal mammary artery to left anterior descending artery, reverse saphenous vein graft to diagonal artery, endoscopic vein harvesting of the left greater saphenous vein, intraoperative transesophageal echocardiogram, and epi-aortic scanning. Upon completion of surgery the patient was transferred to the cardiovascular intensive care unit where he was recovered, monitored hemodynamically, and where he progressed to cardiac rehabilitation phase 1. His postoperative x-ray demonstrated collapse of the right upper lobe of the lung and Dr. Cedillo performed a bronchoscopy and bronchoalveolar lavage of the right upper lobe with mucous plug suctioning on the day of surgery. Following that he was extubated, all lines, tubes, and drips were discontinued when appropriate, and he was transferred to [address] [place] [address] for further monitoring and rehabilitation. His oxygen was titrated down, he continued to work with physical therapy, and was ready to be discharged home on postoperative day #4 with [facility] to follow. He received written and verbal instruction regarding his medications, activity restrictions, signs and symptoms requiring physician notification, and follow-up appointments. COMPLICATIONS: The patient experienced postoperative collapse of the right upper lobe of the lung, an unexpected but potential outcome of surgery. Patient Condition at Discharge: Stable Plan - Discharge Summary Discharge Rx Participant: Yes New Discharge Prescriptions: New Aspirin 325 mg PO DAILY #30 tab Atorvastatin [Lipitor] 40 mg PO DAILY #30 tab Clopidogrel [Plavix] 75 mg PO DAILY #30 tab HYDROcodone/APAP 5-325MG [Cuney 5-325] 1 - 2 each PO Q6H PRN #90 tab PRN Reason: Moderate Pain Metoprolol Tartrate [Lopressor] 50 mg PO BID #60 tab Pantoprazole [Protonix] 40 mg PO AC-BRKFST #30 tablet. Sennosides-Docusate Sodium [Senokot-S] 2 each PO HS #30 tab Discontinued Omeprazole [PriLOSEC] 10 mg PO AC-BRKFST Aspirin [Adult Low Dose Aspirin EC] 81 mg PO DAILY Discharge Medication List Aspirin 325 mg PO DAILY #30 tab 06/28/17 [Rx] Atorvastatin [Lipitor] 40 mg PO DAILY #30 tab 06/28/17 [Rx] Clopidogrel [Plavix] 75 mg PO DAILY #30 tab 06/28/17 [Rx] HYDROcodone/APAP 5-325MG [Cuney 5-325] 1 - 2 each PO Q6H PRN #90 tab 06/28/17 [ Rx] Metoprolol Tartrate [Lopressor] 50 mg PO BID #60 tab 06/28/17 [Rx] Pantoprazole [Protonix] 40 mg PO AC-BRKFST #30 tablet. 06/28/17 [Rx] Sennosides-Docusate Sodium [Senokot-S] 2 each PO HS #30 tab 06/28/17 [Rx] Follow up Appointment(s)/Referral(s): Artem Rodriguez MD [STAFF PHYSICIAN] - 07/11/17 3:00 pm Aneudy Huynh NPC [Nurse Practitioner] - 07/05/17 11:00 am [facility], [NON-STAFF] - Jose Pacheco MD [STAFF PHYSICIAN] - 07/22/17 10:30 am Mike Hardwick MD [Primary Care Provider] - 07/14/17 11:30 am Belinda Cedillo MD [STAFF PHYSICIAN] - 07/22/17 1:00 pm Ambulatory/Diagnostic Orders: Complete Blood Count w/diff [LAB.AMB] Time Frame: 3 Days, Location: Determined By Patient Comprehensive Metabolic Panel [LAB.AMB] Time Frame: 3 Days, Location: Determined By Patient Patient Instructions/Handouts: Sternal Precautions (GEN), Coronary Artery Bypass Graft (DC) Activity/Diet/Wound Care/Special Instructions: DISCHARGE INSTRUCTIONS: 1. No driving for 4 weeks, or until physician gives their ok. 2. The patient should sleep in their own bed, no medical bed needed. 3. Stairs are not an issue. If the bedroom is upstairs, it is advised that the patient go up at night and down in the morning for the first week. Go slowly, using handrail and take 1 step at a time. 4. MALICK hose are to be worn for 30 days or until physician discontinues. 5. Heart hugger is to be worn 100% of the time until physician discontinues.( except when showering) 6. No lifting, pushing, or pulling more than 10 pounds for 12 weeks. The physician will advise of any restriction changes. 7. The patient is expected to continue the prescribed walking program. 8. Continue pain control per as needed orders. 9. Continue with incentive spirometry and splinting/heart hugger until otherwise directed by the physician. 10. Must shower daily using liquid antibacterial soap and a separate white washcloth for each individual incision. 11. Routine sternal incision care. No powders, lotions, ointments on incisions. 12. Please call surgeon/INSPECTOR BRAKE LINING for temp greater than 101 F or purulent drainage from incisions. 13. All prescriptions given by surgeon for 30 days. Refills need to be filled through mri tech/primary care physician. HOME HEALTH SERVICES TO PROVIDE: RN SKILLED HOME CARE SERVICES FOR POST-OP SURGICAL PATIENTS WITH THE FOLLOWING: Coronary Artery Bypass Surgery (CABG), Mitral Valve Replacement/ Repair ( MVR), Aortic Valve Replacement/Repair (AVR) RN TO CONTINUE EDUCATION FROM ``ROAD TO A HEALTH HEART PATIENT EDUCATION MANUAL (GIVEN TO PATIENT IN THE HOSPITAL) MEDICATION RECONCILIATION WITH EDUCATION NEEDED ON FIRST HOME VISIT EMPHASIZE IMPORTANCE OF WEARING BREAST SUPPORT/HEART HUGGER ENCOURAGE USE OF INCENTIVE SPIROMETER 10 X EVERY HOUR WHILE AWAKE ENCOURAGE UTILIZATION OF LOWER EXTREMITY COMPRESSION STOCKINGS/MALICK HOSE and ELEVATE LEGS ABOVE LEVEL OF HEART WHILE AT REST. ENCOURAGE AMBULATION 3-5x/day INCREASING TOLERATES, WHILE AVOID EXTREMES IN TEMPERATURE FREQUENCY: RN TO OPEN THE PATIENT WITHIN 24 HOURS OF DISCHARGE FROM THE HOSPITAL WITH TELEHEALTH INSTALLED AT [facility], RN TO VISIT 2-3 X A WEEK FOR 4 WEEKS ESTABLISHED BY PATIENT NEEDS. REMOVAL OF SUTURES: NURSING SERVICES TO REMOVE SUTURES TWO WEEKS POST SURGICAL DATE 07/08/17. If any questions regarding suture removal please call the office at [phone]. LABORATORY: CBC, CMP TO BE DRAWN ON THE THIRD DAY HOME, Tuesday07/01/2017 (RAN STAT) FAX RESULTS TO [phone]. TELEHEALTH PARAMETERS: WEIGHT: NOTIFY MD OF WEIGHT GAIN OF 2 LBS IN 24 HOURS OR 5 LBS IN ONE WEEK HR: NOTIFY MD OF HR <55 BPM OR HR>100 BPM BP: NOTIFY MD IF BP <90/55 OR BP>140/100 O2 SAT: NOTIFY MD IF PO2<93% ON ROOM AIR SEND TELEHEALTH REPORT TO AERODYNAMICIST AND CARDIOVASCULAR SURGEON THE FIRST WEEK OF CARE AND THEN BI-WEEKLY. PLEASE ADDITIONALLY COMMUNICATE ANY ABNORMALS AND NEW FINDINGS TO THE SURGEONS OFFICE. A Red armband has been placed on the patient. It should be worn for 30 days post surgery and will be removed by the cardiac surgeons. If an ER visit is necessary, please make sure the number on the Red armband is called. Discharge Disposition: HOME WITH HOME HEALTH SERVICES
--- NOTE | 2017-06-28 12:18 | P.PN ---
Subjective Progress Note Date: 06/28/17 Principal diagnosis: Coronary artery disease status post coronary artery bypass grafting utilizing a COUCH to the mid LAD, saphenous vein graft to the diagonal. 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 Patient is a lifelong nonsmoker, has been complaining recently of substernal chest discomfort and radiation to his arms especially the left arm upon shoveling snow. Symptoms disappeared with rest. Hence the patient had a recent stress test on outpatient basis at [facility], and it was suggestive of ischemic changes. Hence the patient saw Dr. Rodriguez today, and he underwent cardiac catheterization. It showed critical ostial LAD stenosis and a long segment with normal LV function. Hence the patient was advised to undergo emergent coronary artery bypass grafting to the LAD. Considering plans for possible CABG, I was asked to see him on consultation for preoperative pulmonary clearance. Again the patient does not smoke, does not have any symptoms to suggest any underlying pulmonary disease. Denies any cough no wheezing no shortness of breath. Denies any headaches, no blurred vision, no dizziness. No nausea no vomiting no abdominal pain no melena no hematemesis no dysuria and no frequency no urgency. Patient is usually very active physically. Again he does not smoke, drinks a glass or 2 glasses of wine on a regular daily basis. Patient denies any specific occupational exposure. Chest x-ray done portable this morning is relatively normal. No evidence of active pulmonary disease. The patient is seen again today 06/24/2017 immediately postoperative in the intensive care unit. The patient had undergone a COUCH to the mid LAD and a saphenous vein graft to the diagonal branch. He is returned on the mechanical ventilator at SIMV mode at a rate of 12, tidal volume 600, FiO2 100% and a PEEP of 5. Arterial blood gases reveal a pO2 of 83, pCO2 45, pH 7.36. He is sedated on propofol currently at 50 mcg/kg/m., Clevidipine at 20 mg per hour, nitroglycerin at 5 mcg/m, lactated Ringer's at 50 MLS per hour. Cardiac output 7.9, cardiac index 3.6, current blood pressure 140/50, PA pressure 39/20 with a mean of 29, CVP 13. Chest x-ray reveals evidence of a right upper lobe collapse. Split mediastinal and left pleural chest tubes are in place and endotracheal tube in good position. Bronchoscopy will be performed. Bronchodilators every 4 hours. Cefazolin every 8 hours. Reevaluated today on 06/25/2017, patient is doing well, he was extubated last night uneventfully, presently on nasal cannula, in no form of respiratory distress, relatively asymptomatic except for aches and pains and feeling generally weak. CBC is relatively unremarkable hemoglobin is 10.9. WBC count is 11.3. Basic metabolic profile and renal profile are normal. Chest x-ray showed mostly postoperative changes, and full expansion of the right upper lobe. Small tiny left pleural effusion is noted. Reevaluated today on 06/26/2017, patient is postoperative day #2, urgent coronary artery bypass grafting 2 with left internal mammary artery to LAD, and reverse saphenous vein graft to diagonal. Postoperatively patient developed collapse of the right upper lobe requiring immediate bronchoscopy with complete resolution of his right upper lobe collapse. This was secondary to mucous plugging, unexpected, but could potentially happen. Patient is presently asymptomatic, sitting in a chair, no cough no wheezing no shortness of breath, quite pleased so far with his progression. CBC is normal and basic metabolic profile is normal. Patient is doing great with incentive spirometry. Progress note dated 06/27/2017 This is a 72-year-old male who is postop day #3 status post bypass grafting. He also has a history of new onset angina. The patient is doing relatively well. Hopeful to be discharged in a day or 2. Denies any chest pain or chest discomfort. No shortness of breath. No nausea vomiting. No diarrhea. No other complaints for that matter. He did require bronchoscopy after his surgery for plugging and collapse of the right upper lobe. That responded very nicely to bronchoscopy. Other than that he is doing well. He continues on breathing treatments and incentive spirometry. Denies any difficulty breathing coughing wheezing. Not requiring any oxygen therapy. No chest pain or chest discomfort. The patient was seen and evaluated again today 06/28/2017 on the selective care unit. He is awake and alert in no acute distress. He is currently sitting up in a chair at the bedside. He has no complaints of shortness of breath, cough or congestion. He's been working well with the incentive spirometer. He's been up in the shower. He's been ambulating in the hallway. He is hoping to go home today. White count 7.3. Hemoglobin 10.8. Creatinine 0.96. Objective - Vital Signs Vital signs: Vital Signs Temp 98.9 F 06/28/17 07:40 Pulse 92 06/28/17 09:28 Resp 18 06/28/17 07:40 BP 127/73 06/28/17 07:40 Pulse Ox 94 L 06/28/17 07:40 Intake & Output 06/27/17 06/28/17 06/28/17 18:59 06:59 18:59 Intake Total 240 0 Output Total 20 775 300 Balance 220 -775 -300 Weight 98.7 kg Intake: IV 0 Lactated Ringers 1,000 ml 0 @ 20 mls/hr IV .Q24H AZUL Rx#:[id number] Oral 240 Output: Drainage 20 Left Calf 20 Urine 775 300 Other: Voiding Method Toilet Urinal # Voids 2 300 ABP, PAP, CO, CI - Last Documented Arterial Blood Pressure 121/70 Pulmonary Artery Pressure 21/14 Cardiac Output 6.7 Cardiac Index 3.0 - Exam GENERAL EXAM: Awake, alert in no acute distress.. HEAD: Normocephalic. EYES: Brisk reaction of pupils, equal size. NOSE: Clear with pink turbinates. THROAT: No erythema, no exudate. NECK: Supple. No masses, no JVD. CHEST: Sternal incision clean dry well approximated. LUNGS: Equal air entry, no wheeze, crackles or rhonchi.. CVS: S1 and S2 normal with no audible murmur, regular rhythm. ABDOMEN: No hepatosplenomegaly, hypoactive bowel sounds, no guarding or rigidity. SPINE: No scoliosis or deformity SKIN: No rashes CENTRAL NERVOUS SYSTEM: Tone is normal in all 4 extremities. EXTREMITIES: There is trace peripheral edema. No clubbing, no cyanosis. Peripheral pulses are intact. - Labs CBC & Chem 7: 06/28/17 06:01 06/28/17 06:01 Labs: Abnormal Lab Results - Last 24 Hours (Table) 06/27/17 06/28/17 06/28/17 Range/Units 16:42 06:01 06:01 RBC 3.38 L (4.30-5.90) m/uL Hgb 10.8 L (13.0-17.5) gm/dL Hct 31.1 L (39.0-53.0) % Glucose 106 H (74-99) mg/dL POC Glucose (mg/dL) 107 H (75-99) mg/dL Total Protein 5.6 L (6.3-8.2) g/dL Albumin 3.2 L (3.5-5.0) g/dL 06/28/17 Range/Units 06:37 RBC (4.30-5.90) m/uL Hgb (13.0-17.5) gm/dL Hct (39.0-53.0) % Glucose (74-99) mg/dL POC Glucose (mg/dL) 104 H (75-99) mg/dL Total Protein (6.3-8.2) g/dL Albumin (3.5-5.0) g/dL Microbiology - Last 24 Hours (Table) 06/24/17 15:12 Gram Stain - Final Bronchial Washings - Left Bronchial Washings Culture - Final Assessment and Plan Assessment: Impression: #1 Coronary artery disease with a critical ostial LAD stenosis and a long segment. Preserved left ventricular systolic function. Status post coronary artery bypass grafting utilizing a COUCH to the LAD, saphenous vein graft to the diagonal branch. #2 Postoperative right upper lobe collapse secondary to suspected mucous plug. Bronchoscopy performed. #3 Hyperlipidemia. #4 Gastroesophageal reflux disease. #5 Macular degeneration bilaterally. #6 Hypertension area Plan: The patient was seen and evaluated by Dr. Lucero. The patient is stable from the pulmonary standpoint. He could follow-up in our office in 1-2 weeks' time. We will repeat a chest x-ray then. He is again encouraged regarding the continued use of the incentive spirometer and cough and deep breathing exercises. I, the cosigning physician, performed a history & physical examination of the patient. Lungs sounds clear. Maintaining good O2 saturations in the 90s on room air. I discussed the assessment and plan of care with my nurse practitioner, Suad Lopez. I attest to the above note as dictated by her.
[2017-06-28 12:19] LABS: Glucose,Whole Blood 79 mg/dL (75-99)
[2017-06-28 12:24] VITALS: BP 129/79; PULSE 80; TEMP 97.1
--- NOTE | 2017-06-28 12:34 | P.PN ---
Subjective Progress Note Date: 06/28/17 Principal diagnosis: CABG This is 72-year-old gentleman who is status post urgent coronary artery bypass grafting surgery with COUCH to the LAD, reverse saphenous vein graft to the diagonal. He is currently being followed on the telemetry unit. Patient was seen and examined this morning, doing well, denies any chest pain, breathing overall has been stable. Blood pressure 114/60 with a heart rate in the 50s to 60s. Afebrile. White blood cell count 7.8, hemoglobin 10.5, platelet count 171. Sodium 140, potassium 4.5, BUN 13, creatinine 0.9. Chest x -ray revealed stable bilateral infiltrates or atelectasis postoperatively with small bilateral effusions. 06/28/2017 Patient seen and examined this morning, doing well overall. Blood pressure 128/ 78, heart rate in the 80s. White blood cell count 7.3, hemoglobin 10.8, platelet count 2:15. Sodium 141, potassium 4.5, BUN 13, creatinine 0.9. Magnesium 2.1. Objective - Vital Signs Vital signs: Vital Signs Temp 97.1 F L 06/28/17 12:00 Pulse 80 06/28/17 12:00 Resp 18 06/28/17 12:00 BP 129/79 06/28/17 12:00 Pulse Ox 97 06/28/17 12:00 Intake & Output 06/27/17 06/28/17 06/28/17 18:59 06:59 18:59 Intake Total 240 0 Output Total 20 775 300 Balance 220 -775 -300 Weight 98.7 kg Intake: IV 0 Lactated Ringers 1,000 ml 0 @ 20 mls/hr IV .Q24H [facility] Rx#:[id number] Oral 240 Output: Drainage 20 Left Calf 20 Urine 775 300 Other: Voiding Method Toilet Urinal # Voids 2 300 ABP, PAP, CO, CI - Last Documented Arterial Blood Pressure 121/70 Pulmonary Artery Pressure 21/14 Cardiac Output 6.7 Cardiac Index 3.0 - Exam PHYSICAL EXAMINATION: HEENT: Head is atraumatic, normocephalic. Pupils equal, round. Neck is supple. There is no elevated jugular venous pressure. HEART EXAMINATION: Heart S1, S2 normal. No murmur or gallop heard. CHEST EXAMINATION: Lungs are clear with mild diminished air entry to the bases . ABDOMEN: Soft, nontender. Bowel sounds are heard. No organomegaly noted. EXTREMITIES: 2+ peripheral pulses with no evidence of peripheral edema and no calf tenderness noted. Bilateral Venodyne's in place. NEUROLOGIC patient is awake, alert and oriented -3. . - Labs CBC & Chem 7: 06/28/17 06:01 06/28/17 06:01 Labs: Abnormal Lab Results - Last 24 Hours (Table) 06/27/17 06/28/17 06/28/17 Range/Units 16:42 06:01 06:01 RBC 3.38 L (4.30-5.90) m/uL Hgb 10.8 L (13.0-17.5) gm/dL Hct 31.1 L (39.0-53.0) % Glucose 106 H (74-99) mg/dL POC Glucose (mg/dL) 107 H (75-99) mg/dL Total Protein 5.6 L (6.3-8.2) g/dL Albumin 3.2 L (3.5-5.0) g/dL 06/28/17 Range/Units 06:37 RBC (4.30-5.90) m/uL Hgb (13.0-17.5) gm/dL Hct (39.0-53.0) % Glucose (74-99) mg/dL POC Glucose (mg/dL) 104 H (75-99) mg/dL Total Protein (6.3-8.2) g/dL Albumin (3.5-5.0) g/dL Microbiology - Last 24 Hours (Table) 06/24/17 15:12 Gram Stain - Final Bronchial Washings - Left Bronchial Washings Culture - Final Assessment and Plan Plan: Assessment and plan #1 status post coronary bypass grafting surgery #2 hyperlipidemia #3 GERD Plan From cardiology's perspective, the patient's current medications have been reviewed, we will continue as same. Arrangements are being made for possible discharge home today. We'll make a follow-up appointment in the office 2 weeks post discharge. DNP note has been reviewed, I agree with a documented findings and plan of care. Patient was seen and examined.
--- NOTE | 2017-06-28 13:31 | P.PN ---
Subjective Progress Note Date: 06/28/17 This is a 72-year-old gentleman patient of Dr. Brad Hardwick. Dr. Rodriguez. She has underlying history of GERD, with no significant past medical history, complained off chest discomfort a few days ago consisting off for chest pain during a snow shoveling 3 weeks ago, patient had chest tightness 2 days prior to admission for which he underwent a stress echocardiogram on June 23 2017 necessary. Necessitating as cardiac catheterization performed right radial artery on 06/23/2017. Stress test findings include mild anterior and apical hypokinesia at the peak of exercise consistent with LAD disease, progressing EF is about 55-60%, stress echo EF shows 40-45%, wall motion abnormality anteroseptal and mid anterior apex and anterolateral oakley performed an exercise of 5 minutes reaching a stage II at 2.5 miles per hour, 12 incline. Unable to find cardiac cath report , I be notified by someone regarding the abnormal stress test requiring cardiothoracic surgeon evaluation, anticipating bypass surgery on 06/24/2017, Dr. Smith consulted for critical care pulmonary medicine. Patient denies any prior history of CAD, no hypertension, hyperlipidemia, denies diabetes mellitus type 2, no CVA, no CHF 06/27: Patient is status post urgent coronary artery bypass grafting surgery with COUCH to LAD, reverse saphenous vein graft to the diagonal. Patient is now on the selective care unit and seen. He denies having any chest pain or shortness of breath. He states he is walking without any lightheadedness or dizziness. He denies any lower extremity edema. He denies palpitations. He states he is eating well and he had a good bowel movement yesterday he did not notice any blood. His most recent chest x-ray reveals stable bilateral infiltrates or atelectasis. Postoperatively with small bilateral effusions. 06/28: Patient states he got up for his first shower today and feels "wonderful. " He denies having any chest pain shortness of breath. He denies any lightheadedness or dizziness. He is expecting discharge later today. Chest x- ray shows residual basilar atelectasis and possible small effusion and stable cardiomegaly. Objective - Vital Signs Vital signs: Vital Signs Temp 98.9 F 06/28/17 07:40 Pulse 92 06/28/17 09:09 Resp 18 06/28/17 07:40 BP 127/73 06/28/17 07:40 Pulse Ox 94 L 06/28/17 07:40 Intake & Output 06/27/17 06/28/17 06/28/17 18:59 06:59 18:59 Intake Total 240 0 Output Total 20 775 Balance 220 -775 Weight 98.7 kg Intake: IV 0 Lactated Ringers 1,000 ml 0 @ 20 mls/hr IV .Q24H [facility] Rx#:[id number] Oral 240 Output: Drainage 20 Left Calf 20 Urine 775 Other: Voiding Method Toilet Urinal # Voids 2 ABP, PAP, CO, CI - Last Documented Arterial Blood Pressure 121/70 Pulmonary Artery Pressure 21/14 Cardiac Output 6.7 Cardiac Index 3.0 - Exam General appearance: Present: average body habitus, cooperative, no acute distress. Absent: disheveled - EENT Eyes: Present: PERRLA, normal appearance - Neck Neck: Present: normal ROM. Absent: rigidity, stridor, thyromegaly - Respiratory Respiratory: bilateral: CTA, negative: wheezing - Cardiovascular Rhythm: regular Heart sounds: normal: S1, S2 - Gastrointestinal General gastrointestinal: Present: normal bowel sounds, soft. Absent: distended , rigid, tenderness - Integumentary Integumentary: Present: normal, normal turgor - Neurologic Neurologic: Present: CNII-XII intact. Absent: focal deficits - Musculoskeletal Musculoskeletal: Present: gait normal, strength equal bilaterally. Absent: generalized weakness, right sided weakness, left sided weakness - Psychiatric Psychiatric: Present: A&O x's 3, appropriate affect, intact judgment & insight - Labs CBC & Chem 7: 06/28/17 06:01 06/28/17 06:01 Labs: Abnormal Lab Results - Last 24 Hours (Table) 06/27/17 06/28/17 06/28/17 Range/Units 16:42 06:01 06:01 RBC 3.38 L (4.30-5.90) m/uL Hgb 10.8 L (13.0-17.5) gm/dL Hct 31.1 L (39.0-53.0) % Glucose 106 H (74-99) mg/dL POC Glucose (mg/dL) 107 H (75-99) mg/dL Total Protein 5.6 L (6.3-8.2) g/dL Albumin 3.2 L (3.5-5.0) g/dL 06/28/17 Range/Units 06:37 RBC (4.30-5.90) m/uL Hgb (13.0-17.5) gm/dL Hct (39.0-53.0) % Glucose (74-99) mg/dL POC Glucose (mg/dL) 104 H (75-99) mg/dL Total Protein (6.3-8.2) g/dL Albumin (3.5-5.0) g/dL Microbiology - Last 24 Hours (Table) 06/24/17 15:12 Gram Stain - Final Bronchial Washings - Left Bronchial Washings Culture - Final Assessment and Plan Plan: 1. Coronary artery disease status post CABG. Patient is managed by cardiothoracic surgery. Continue to increase activity, use incentive spirometry. Patient is off oxygen therapy. Continue aspirin, Lipitor, Plavix, heparin, Lopressor. 2. Collapse of the right upper lobe after surgery status post bronchoscopy and bronchial alveolar lavage with mucous plug, stable patient is off oxygen therapy patient to use incentive spirometry and increase activity. Continue DuoNeb treatments 3. Gastroesophageal reflux disease. Continue Protonix. Discharge plan: Return home with [facility] Impression and plan of care have been directed as dictated by the signing physician. Elizabeth Powell nurse practitioner acting as scribe for signing physician.
[2017-06-28] MEDS ORDERED: METOPROLOL TARTRATE 50 MG TAB PO SCH (21:00)
--- NOTE | 2017-06-30 09:12 | ECHOF ---
Referral Reason:assess LV function and valves. MEASUREMENTS -------- HEIGHT: 182.9 cm WEIGHT: 93.0 kg BP: 137/87 IVSd: 1.1 cm (0.6 - 1.1) LVIDd: 5.4 cm (3.9 - 5.3) LVPWd: 1.2 cm (0.6 - 1.1) IVSs: 1.3 cm LVIDs: 4.3 cm LVPWs: 1.6 cm RVIDd: 4.2 cm (< 3.3) LAESV Index (A-L): 22.68 ml/m Ao Diam: 3.6 cm (2.0 - 3.7) LA Diam: 2.7 cm (2.7 - 3.8) AV Cusp: 2.2 cm (1.5 - 2.6) EPSS: 0.7 cm MV E Kyrie: 0.64 m/s MV DecT: 263 ms MV A Kyrie: 0.79 m/s MV E/A Ratio: 0.80 AR PHT: 574 ms RAP: 5.00 mmHg RVSP: 11.89 mmHg MV EF SLOPE: 147.89 mm/s (70 - 150) MV EXCURSION: 2.36 cm (> 18.000) FINDINGS -------- Sinus rhythm. This was a technically adequate study. The left ventricular size is normal. There is mild concentric left ventricular hypertrophy. There is mild global hypokinesis of LV . Overall left ventricular systolic function is low-normal with, an EF between 50 - 55 %. The right ventricle is moderately enlarged. Normal LA size by volume 22+/-6 ml/m2. The right atrium is normal in size. Aortic valve is trileaflet and is mildly thickened. There is mild aortic regurgitation. There is no evidence of aortic stenosis. The mitral valve leaflets are mildly thickened. There is trace to mild mitral regurgitation. Trace tricuspid regurgitation present. Right ventricular systolic pressure is normal at < 35 mmHg. There is no evidence of pulmonary hypertension. Trace/mild (physiologic) pulmonic regurgitation. The aortic root size is normal. Normal inferior vena cava with normal inspiratory collapse consistent with estimated right atrial pre ssure of 5 mmHg. The pericardium is normal. There is no pericardial effusion. CONCLUSIONS -------- 1. Sinus rhythm. 2. This was a technically adequate study. 3. The left ventricular size is normal. 4. There is mild concentric left ventricular hypertrophy. 5. There is mild global hypokinesis of LV . 6. Overall left ventricular systolic function is low-normal with, an EF between 50 - 55 %. 7. The right ventricle is moderately enlarged. 8. Normal LA size by volume 22+/-6 ml/m2. 9. Aortic valve is trileaflet and is mildly thickened. 10. There is mild aortic regurgitation. 11. The mitral valve leaflets are mildly thickened. 12. There is trace to mild mitral regurgitation. 13. Trace tricuspid regurgitation present. 14. Right ventricular systolic pressure is normal at < 35 mmHg. 15. There is no evidence of pulmonary hypertension. 16. Trace/mild (physiologic) pulmonic regurgitation. 17. The aortic root size is normal. 18. There is no pericardial effusion. PERFUME COMPOUNDER: Hilario Tapia RDCS
== END 2017-06-28 13:30 | disposition home health service (06) | DRG 234 ==
LOC: CATHCVL 10:12 → 6SEL 12:33 → CATHCVL 12:56 → 6SEL 13:49 → OBSVTOIN 13:49 → 6ICU 06-24 07:01 → 6SEL 06-26 11:54
PROVIDERS: ADMIT Internal Medicine Interventional Cardiology; ATTEND Surgery
PROC: 4A023N7 Measurement of Cardiac Sampling and Pressure, Left Heart, Percutaneous Approach (ICD-10-PCS; 2017-06-23)
PROC: B2111ZZ Fluoroscopy of Multiple Coronary Arteries using Low Osmolar Contrast (ICD-10-PCS; 2017-06-23)
PROC: B2151ZZ Fluoroscopy of Left Heart using Low Osmolar Contrast (ICD-10-PCS; 2017-06-23)
PROC: B246ZZ4 Ultrasonography of Right and Left Heart, Transesophageal (ICD-10-PCS; 2017-06-23)
PROC: 02100Z9 Bypass Coronary Artery, One Artery from Left Internal Mammary, Open Approach (ICD-10-PCS; 2017-06-24)
PROC: 06BQ4ZZ Excision of Left Saphenous Vein, Percutaneous Endoscopic Approach (ICD-10-PCS; 2017-06-24)
PROC: 0B9C8ZX Drainage of Right Upper Lung Lobe, Via Natural or Artificial Opening Endoscopic, Diagnostic (ICD-10-PCS; 2017-06-24)
PROC: 0WCQ8ZZ Extirpation of Matter from Respiratory Tract, Via Natural or Artificial Opening Endoscopic (ICD-10-PCS; 2017-06-24)
PROC: 5A1221Z Performance of Cardiac Output, Continuous (ICD-10-PCS; 2017-06-24)
PROC: B54DZZZ Ultrasonography of Bilateral Lower Extremity Veins (ICD-10-PCS; 2017-06-24)
PROC: 021009W Bypass Coronary Artery, One Artery from Aorta with Autologous Venous Tissue, Open Approach (ICD-10-PCS; principal; 2017-06-24 08:00)
DX: I25.110 Atherosclerotic heart disease of native coronary artery with unstable angina pectoris (principal); T17.890A Other foreign object in other parts of respiratory tract causing asphyxiation, initial encounter; D62 Acute posthemorrhagic anemia; J98.11 Atelectasis; J98.19 Other pulmonary collapse; E78.5 Hyperlipidemia, unspecified; H35.30 Unspecified macular degeneration; I10 Essential (primary) hypertension; K21.9 Gastro-esophageal reflux disease without esophagitis; R73.9 Hyperglycemia, unspecified; Z79.82 Long term (current) use of aspirin; Z79.899 Other long term (current) drug therapy; Z82.49 Family history of ischemic heart disease and other diseases of the circulatory system
CPT/HCPCS: 31624; 71045; 71046; 80048; 80053; 80061; 80074; 82330; 82805; 83036; 83735; 83880; 84100; 84443; 85025; 85027; 85520; 85610; 85730; 86850; 86891; 86900; 86901; 86920; 87070; 87205; 93306; 93458; 93880; 93970; 94150; 94640; 94760

== ENCOUNTER 2021-03-11 10:57 | Day surgery (SDC) | payer MEDICARE ==
[2021-03-06 12:06] VITALS: BMI 28.5
[~2021-03-11 10:57] MED LIST: LACTATED RINGERS 1,000 ML IV SCH
[2021-03-11 11:47] VITALS: TEMP 97.8
[2021-03-11] MEDS ORDERED: PROPOFOL 10 MG/ML 20 ML VIAL IV ONE (12:58)
--- NOTE | 2021-03-11 13:18 | P.PCN ---
Date of Procedure: 03/11/21 Procedure(s) Performed: BRIEF HISTORY: Patient is a 75-year-old pleasant white male scheduled for an elective colonoscopy as a part of value should prior history of colon polyps. His last colonoscopy was 5 years ago and according to the patient was noted to have colon polyps PROCEDURE PERFORMED: Colonoscopy. PREOPERATIVE DIAGNOSIS: History of colon polyps. IV sedation per Anesthesia. PROCEDURE: After informed consent was obtained, the patient, was brought into the endoscopy unit. IV sedation was administered by Anesthesia under continuous monitoring. Digital rectal examination was normal. Initially the Olympus CF-160 flexible video colonoscope was then inserted in the rectum, gradually advanced into the cecum without any difficulty. Careful examination was performed as the scope was gradually being withdrawn. Ileocecal valve and the appendiceal orifice were visualized and appeared normal. Prep was excellent. Mucosa of the cecum, ascending colon, transverse colon, descending colon, sigmoid colon, and rectum appeared normal. Scattered diffuse diverticulosis seen Retroflexion was per formed in the rectum and no lesions were seen. The patient tolerated the procedure well. IMPRESSION: Scattered diffuse diverticulosis No evidence of colorectal neoplasia RECOMMENDATIONS: Findings of this examination were discussed with the patient as well as his family. He was advised to have a repeat colonoscopy in 5 years from now because of the prior history of colon polyps.
[2021-03-11 13:21] VITALS: RESP 16
[2021-03-11 13:38] VITALS: BP 108/69; PULSE 58
== END 2021-03-11 14:00 | disposition home or self-care (01) ==
LOC: ORWHC2ENDO 10:57
PROVIDERS: ATTEND Internal Medicine Gastroenterology
DX: K57.90 Diverticulosis of intestine, part unspecified, without perforation or abscess without bleeding (principal); Z86.010 Personal history of colon polyps
CPT/HCPCS: 45378; J2704